=== PATIENT | male | born 1950 | race Caucasian/White ===

== ENCOUNTER 2018-01-27 09:43 | Inpatient (IN) | payer MEDICARE, OTHER ==
--- NOTE | 2018-01-27 10:07 | ED ---
General Adult HPI - General Chief complaint: Weakness Stated complaint: Weakness Time Seen by Provider: 01/27/18 09:45 Source: patient, EMS, RN notes reviewed Mode of arrival: EMS Limitations: no limitations - History of Present Illness Initial comments: This is a 67-year-old male who presents emergency Department complaining of becoming short of breath with any kind of exertion. Patient states his been ongoing for about 2 weeks is gotten progressively worse. Patient states he is also noticed significant edema in both of his legs but much more in the right leg than the left. Patient denies any calf pain or tenderness. Patient states she's had no heart history. Patient states he is a daily drinker. Patient denies any chest pain pressure or palpitations. Patient denies any abdominal pain patient denies nausea vomiting diarrhea. Patient denies lightheadedness dizziness or near syncopal episode. Patient denies headache patient denies numbness weakness. Patient denies any recent fever chills or cough. - Related Data Home Medications Medication Instructions Recorded Confirmed Tacrolimus [Prograf] 1 mg PO BID 11/15/14 01/27/18 amLODIPine [Norvasc] 5 mg PO BID 11/15/14 01/27/18 ALPRAZolam [Xanax] 0.5 mg PO TID PRN 01/27/18 01/27/18 Cyanocobalamin (Vitamin B-12) 1,000 mcg PO DAILY 01/27/18 01/27/18 [Vitamin B-12] Dexamethasone 1 mg PO BID 01/27/18 01/27/18 Enalapril [Vasotec] 10 mg PO BID 01/27/18 01/27/18 Ferrous Sulfate [Feosol] 325 mg PO DAILY 01/27/18 01/27/18 Folic Acid(Unknown Dose) 1 tab PO DAILY 01/27/18 01/27/18 HYDROcodone/APAP 7.5-325MG [[place] 1 tab PO QID 01/27/18 01/27/18 7.5-325] Metoprolol Tartrate [Lopressor] 25 mg PO BID 01/27/18 01/27/18 Multivitamins, Thera [Multivitamin 1 tab PO DAILY 01/27/18 01/27/18 (formulary)] Mycophenolate Sodium [Mycophenolic 360 mg PO BID 01/27/18 01/27/18 Acid] Oxybutynin Chloride [Ditropan] 2.5 mg PO BID 01/27/18 01/27/18 Allergies Allergy/AdvReac Type Severity Reaction Status Date / Time No Known Allergies Allergy Verified 01/27/18 10:48 Review of Systems ROS Statement: Those systems with pertinent positive or pertinent negative responses have been documented in the HPI. ROS Other: All systems not noted in ROS Statement are negative. Past Medical History Past Medical History: Hearing Disorder / Deafness, Hypertension, Renal Disease, Skin Disorder Additional Past Medical History / Comment(s): HX OF RENAL FAILURE, ON PERITONEAL DIALYSIS [id number]; HAD RENAL TRANSPLANT 2004; WEARS HEARING AIDE BILATERALLY; HX OF RENAL DISEASE PRIOR TO TRANSPLANT; MILD PSORIASIS ARMS, LEGS AND BACK. SICNE CHEMO THE PSORIAIS HAS CLEARED History of Any Multi-Drug Resistant Organisms: None Reported Past Surgical History: Appendectomy, Joint Replacement, Tonsillectomy Additional Past Surgical History / Comment(s): CHEMO AND RADIATION FOR TONGUE. PEG TUBE PLACED 1 YR AGO. HAD LEFT THORACOTOMY WITH UPPER LOBECTOMY 2013. BILATERAL HIP REPLACEMENT Past Psychological History: Anxiety, Depression Smoking Status: Former smoker Past Alcohol Use History: Daily Past Drug Use History: None Reported - Past Family History Father Family Medical History: Coronary Artery Disease (CAD), Renal Disease Mother Family Medical History: Coronary Artery Disease (CAD) General Exam - General Exam Comments Initial Comments: GENERAL: Patient is well-developed and well-nourished. Patient is nontoxic and well- hydrated and is in mild distress. ENT: Neck is soft and supple. No significant lymphadenopathy is noted. Oropharynx is clear. Moist mucous membranes. Neck has full range of motion without eliciting any pain. EYES: The sclera were anicteric and conjunctiva were pink and moist. Extraocular movements were intact and pupils were equal round and reactive to light. Eyelids were unremarkable. PULMONARY: Unlabored respirations. Good breath sounds bilaterally. No audible rales rhonchi or wheezing was noted. CARDIOVASCULAR: Patient has no irregular heart rate at 110 beats a minute ABDOMEN: Soft and nontender with normal bowel sounds. No palpable organomegaly was noted. There is no palpable pulsatile mass. SKIN: Skin is clear with no lesions or rashes and otherwise unremarkable. NEUROLOGIC: Patient is alert and oriented x3. Cranial nerves II through XII are grossly intact. Motor and sensory are also intact. Normal speech, volume and content. Symmetrical smile. MUSCULOSKELETAL: Normal extremities with adequate strength and full range of motion. 3+ edema on the right and 2+ on the left LYMPHATICS: No significant lymphadenopathy is noted PSYCHIATRIC: Normal psychiatric evaluation. Limitations: no limitations Course Vital Signs 01/27/18 01/27/18 01/27/18 09:46 09:59 11:48 Temperature 97.6 F Pulse Rate 88 90 Pulse Rate [ 92 [place] ] Respiratory 20 20 Rate Blood Pressure 165/120 159/110 O2 Sat by Pulse 97 94 L 96 Oximetry 01/27/18 13:01 Temperature 97.1 F L Pulse Rate 100 Pulse Rate [ [place] ] Respiratory 16 Rate Blood Pressure 131/89 O2 Sat by Pulse 99 Oximetry Medical Decision Making - Medical Decision Making EKG shows atrial fibrillation at 92 bpm QRS is 90 QT interval 358 QTC is 442. Patient's EKG shows no ST segment elevation or depression or T wave abnormalities are noted. Chest x-ray shows no acute abnormality. I started the patient heparin for the new onset A. fib. I spoke with Dr. Polk he agreed to admit the patient admitted the patient I wrote admitting orders. - Lab Data Result diagrams: 01/27/18 10:00 01/28/18 03:30 Lab Results 01/27/18 01/27/18 01/27/18 Range/Units 10:00 10:00 10:00 WBC 7.0 (3.8-10.6) k/uL RBC 4.51 (4.30-5.90) m/uL Hgb 14.1 (13.0-17.5) gm/dL Hct 42.8 (39.0-53.0) % MCV 94.9 (80.0-100.0) fL MCH 31.3 (25.0-35.0) pg MCHC 33.0 (31.0-37.0) g/dL RDW 14.9 (11.5-15.5) % Plt Count 150 (150-450) k/uL Neutrophils % 94 % Lymphocytes % 2 % Monocytes % 4 % Eosinophils % 0 % Basophils % 0 % Neutrophils # 6.5 (1.3-7.7) k/uL Lymphocytes # 0.2 L (1.0-4.8) k/uL Monocytes # 0.3 (0-1.0) k/uL Eosinophils # 0.0 (0-0.7) k/uL Basophils # 0.0 (0-0.2) k/uL PT (9.0-12.0) sec INR (<1.2) APTT (22.0-30.0) sec D-Dimer (<0.60) mg/L FEU Sodium 138 (137-145) mmol/L Potassium 3.7 (3.5-5.1) mmol/L Chloride 99 (98-107) mmol/L Carbon Dioxide 29 (22-30) mmol/L Anion Gap 10 mmol/L BUN 25 H (9-20) mg/dL Creatinine 0.85 (0.66-1.25) mg/dL Est GFR (CKD-EPI)AfAm >90 (>60 ml/min/1.73 sqM) Est GFR (CKD-EPI)NonAf >90 (>60 ml/min/1.73 sqM) Glucose 84 (74-99) mg/dL Calcium 8.9 (8.4-10.2) mg/dL Magnesium 1.7 (1.6-2.3) mg/dL Total Bilirubin 0.6 (0.2-1.3) mg/dL AST 60 H (17-59) U/L ALT 72 (21-72) U/L Alkaline Phosphatase 95 (38-126) U/L Total Creatine Kinase 78 (55-170) U/L CK-MB (CK-2) 4.0 H* (0.0-2.4) ng/mL CK-MB (CK-2) Rel Index 5.1 Troponin I 0.048 H* (0.000-0.034) ng/mL NT-Pro-B Natriuret Pep pg/mL Total Protein 5.2 L (6.3-8.2) g/dL Albumin 3.2 L (3.5-5.0) g/dL TSH (0.465-4.680) mIU/L Serum Alcohol <10 mg/dL 01/27/18 01/27/18 01/27/18 Range/Units 10:00 10:00 10:06 WBC (3.8-10.6) k/uL RBC (4.30-5.90) m/uL Hgb (13.0-17.5) gm/dL Hct (39.0-53.0) % MCV (80.0-100.0) fL MCH (25.0-35.0) pg MCHC (31.0-37.0) g/dL RDW (11.5-15.5) % Plt Count (150-450) k/uL Neutrophils % % Lymphocytes % % Monocytes % % Eosinophils % % Basophils % % Neutrophils # (1.3-7.7) k/uL Lymphocytes # (1.0-4.8) k/uL Monocytes # (0-1.0) k/uL Eosinophils # (0-0.7) k/uL Basophils # (0-0.2) k/uL PT 9.7 (9.0-12.0) sec INR 1.0 (<1.2) APTT 23.4 (22.0-30.0) sec D-Dimer 0.54 (<0.60) mg/L FEU Sodium (137-145) mmol/L Potassium (3.5-5.1) mmol/L Chloride (98-107) mmol/L Carbon Dioxide (22-30) mmol/L Anion Gap mmol/L BUN (9-20) mg/dL Creatinine (0.66-1.25) mg/dL Est GFR (CKD-EPI)AfAm (>60 ml/min/1.73 sqM) Est GFR (CKD-EPI)NonAf (>60 ml/min/1.73 sqM) Glucose (74-99) mg/dL Calcium (8.4-10.2) mg/dL Magnesium (1.6-2.3) mg/dL Total Bilirubin (0.2-1.3) mg/dL AST (17-59) U/L ALT (21-72) U/L Alkaline Phosphatase (38-126) U/L Total Creatine Kinase (55-170) U/L CK-MB (CK-2) (0.0-2.4) ng/mL CK-MB (CK-2) Rel Index Troponin I (0.000-0.034) ng/mL NT-Pro-B Natriuret Pep 3480 pg/mL Total Protein (6.3-8.2) g/dL Albumin (3.5-5.0) g/dL TSH 0.997 (0.465-4.680) mIU/L Serum Alcohol mg/dL Disposition Clinical Impression: New onset a-fib, Dyspnea, Pedal edema Disposition: ADMITTED IP TO THIS HOSP Is patient prescribed a controlled substance at d/c from ED?: No Time of Disposition: 12:06
[2018-01-27 10:23] LABS: Basophils % (A) 0 %; Eosinophils % (A) 0 %; HCT 42.8 % (39.0-53.0); HGB 14.1 gm/dL (13.0-17.5); Lymphocytes # (A) 0.2 k/uL (1.0-4.8); Lymphocytes % (A) 2 %; MCH 31.3 pg (25.0-35.0); MCV 94.9 fL (80.0-100.0); Mean Platelet Volume 6.8; Monocytes # (A) 0.3 k/uL (0-1.0); Monocytes % (A) 4 %; Neutrophils # (A) 6.5 k/uL (1.3-7.7); Neutrophils % (A) 94 %; Platelet Count 150 k/uL (150-450); RBC 4.51 m/uL (4.30-5.90); RDW 14.9 % (11.5-15.5)
[2018-01-27 10:34] LABS: ALT 72 U/L (21-72); AST 60 U/L (17-59); Albumin 3.2 g/dL (3.5-5.0); Alcohol <10 mg/dL; Alkaline Phosphatase 95 U/L (38-126); Anion Gap 10 mmol/L; Blood Urea Nitrogen 25 mg/dL (9-20); Calcium 8.9 mg/dL (8.4-10.2); Carbon Dioxide 29 mmol/L (22-30); Chloride 99 mmol/L (98-107); Glucose 84 mg/dL (74-99); Magnesium 1.7 mg/dL (1.6-2.3); Potassium 3.7 mmol/L (3.5-5.1); Sodium 138 mmol/L (137-145); Total Bilirubin 0.6 mg/dL (0.2-1.3); Total Protein 5.2 g/dL (6.3-8.2)
--- NOTE | 2018-01-27 10:36 | XR ---
EXAMINATION TYPE: XR chest 2V DATE OF EXAM: 01/27/2018 COMPARISON: NONE HISTORY: Shortness of breath TECHNIQUE: Frontal and lateral views of the chest are obtained. FINDINGS: Scattered senescent parenchymal changes noted. Left mid lung zone density the site of prior surgical intervention may be postoperative in nature. Un derlying atelectasis or infiltrate is difficult to exclude. Correlate clinically. Heart size is stable. Mediastinal structures are stable and grossly unremarkable. No evidence for hilar prominence. Degenerative changes dorsal spine. IMPRESSION: 1. Left mid lung zone density the site of prior surgical intervention may be postoperative in nature. Underlying atelectasis or infiltrate is difficult to exclude. Correlate clinically.
[2018-01-27 10:38] LABS: D-Dimer 0.54 mg/L FEU (<0.60); Partial Thromboplastin Time 23.4 sec (22.0-30.0); Prothrombin Time 9.7 sec (9.0-12.0)
[2018-01-27 11:06] LABS: Troponin I 0.048 ng/mL (0.000-0.034)
[2018-01-27] MEDS ORDERED: HEPARIN SODIUM,PORCINE 5,000 UNIT/ML 1 ML VIAL IV ONE (12:02)
[2018-01-27] MEDS ORDERED: NITROGLYCERIN SL TABS 0.4 MG TAB SUBLINGUAL PRN (12:06)
[2018-01-27] MEDS ORDERED: HEPARIN SOD,PORK IN 0.45% NACL 25,000 UNIT in 0.45% NACL 1 500ML.BAG IV SCH (12:15)
--- NOTE | 2018-01-27 12:37 | US ---
EXAMINATION TYPE: US venous doppler duplex LE RT DATE OF EXAM: 01/27/2018 12:03 PM COMPARISON: NONE CLINICAL HISTORY: Pain. Right leg pain SIDE PERFORMED: Right TECHNIQUE: The lower extremity deep venous system is examined utilizing real time linear array sonog conchita with graded compression, doppler sonography and color-flow sonography. VESSELS IMAGED: External Iliac Vein (EIV) Common Femoral Vein Deep Femoral Vein Greater Saphenous Vein * Femoral Vein Popliteal Vein Small Saphenous Vein * Proximal Calf Veins (* superficial vessels) Right Leg: Appears negative for DVT Grayscale, color doppler, spectral doppler imaging performed of the deep veins of the lower extremiti es. There is normal flow, compressibility, vascular waveforms. IMPRESSION: No evident deep venous thrombosis at or above the right knee.
[2018-01-27] MEDS: DILTIAZEM 50 MG in SODIUM CHLORIDE 0.9% 40 ML IV SCH (13:40)
[2018-01-27] MEDS ORDERED: ALPRAZolam 0.5 MG TAB PO PRN (14:50)
[2018-01-27] MEDS: METOPROLOL TARTRATE 25 MG TAB PO SCH ×2 (15:51→20:52)
[2018-01-27] MEDS: FUROSEMIDE 10 MG/ML 2 ML VIAL IV SCH ×2 (15:51→20:50)
--- NOTE | 2018-01-27 16:25 | CONS ---
CONSULTATION ATTENDING PHYSICIAN: Dr. 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 Casper's office for evaluation of dyspnea, weakness in the lower extremities and edema. He has a known history of renal transplant, history of left upper lobe resection for cancer and radiation therapy for tongue cancer in the past in 2013 that has been stable for the last 2 months or so. He has been complaining of progressive weakness in his legs with any physical activity and progressive fatigue. He has some dyspnea, but no chest pain. He has noted progressing of peripheral edema. He denies any dizziness or palpitation. No syncope. He has been seen by Dr. Allred in the past and his workup according to him was unremarkable. He has no clear PND or orthopnea. In the emergency room, he was noted to be in atrial fibrillation of unknown duration. His coronary risk factors are positive for hypertension. He is nondiabetic. He has stopped smoking in the past. He drinks about 2-3 martini a day. His medication at home include enalapril 10 mg twice a day, iron, metoprolol tartrate 25 mg twice a day. Prograf 1 mg twice a day. Amlodipine 5 mg twice a day. Dexamethasone 1 mg twice a day. Ditropan. [place]. REVIEW OF SYSTEMS: RESPIRATORY SYSTEM: He has no recent wheezing or cough. He has dyspnea on exertion. GI SYSTEM: No recent GI bleeding. No peptic ulcer disease. He has lost weight after his surgery and had a feeding tube that was removed recently and his weight has been stable. SYSTEM: No dysuria, hematuria. NERVOUS SYSTEM: No history of stroke or seizure. PHYSICAL EXAMINATION: A 67-year-old male, alert, oriented, in no apparent distress. Thin body habitus. Blood pressure 131/80 with a heart in 90s. HEAD: Normocephalic. EYES: Sclerae anicteric. NECK: No bruit. LUNGS: No wheezes or rales. HEART: Irregular regular S1, S2. No S3 with systolic murmur. No diastolic murmur. No rub. ABDOMEN: Soft, nontender. EXTREMITIES: +2 edema on the right side, +1 on the left side with 2+ distal pulses. LAB DATA: Lab data revealed a BUN and creatinine 25 and 0.85, potassium 3.7, hemoglobin 14.1. Troponin 0.048. NT proBNP of 3480. EKG revealed atrial fibrillation with a QS in V1 to V3. Cannot exclude anterior wall myocardial infarction. Venous duplex scan of the lower extremities was negative for DVT. Chest x-ray showed no acute infiltrate with a mid lung density on the left side related to surgical intervention. IMPRESSION: 1. Atrial fibrillation of unknown duration. 2. Symptoms of progressive leg weakness and fatigue with peripheral edema with elevation NT proBNP could represent congestive heart failure. On physical examination, I do not hear any rales at this time in the lungs. 3. History of hypertension. 4. History of lung cancer, stable. 5. History of renal transplant, stable. RECOMMENDATION: From the cardiac standpoint, I will start him on IV Lasix. I will also increase the dose of his beta rigoberto. I will obtain echocardiogram with Doppler. The mild elevation of the troponin is of unclear etiology. I do not see clear evidence to suggest acute coronary syndrome. Depending on the results of testing, further recommendation will be made. Thank you for this consult. We will follow with you. MMODL / IJN: [id number] /
[2018-01-27 17:31] LABS: Creatine Kinase MB 3.6 ng/mL (0.0-2.4); Troponin I 0.049 ng/mL (0.000-0.034)
[2018-01-27] MEDS ORDERED: HYDROcodone/APAP 7.5-325MG 1 EACH TAB PO SCH (18:00)
[2018-01-27] MEDS: MYCOPHENOLATE SODIUM DR 180 MG TABLET.DR PO SCH (20:50)
[2018-01-27] MEDS: OXYBUTYNIN CHLORIDE 5 MG TAB PO SCH (20:51)
[2018-01-27] MEDS: TACROLIMUS 1 MG CAP PO SCH (20:52)
[2018-01-27] MEDS: HYDROcodone/APAP 7.5-325MG 1 EACH TAB PO PRN (21:03)
[2018-01-27 22:36] LABS: Creatine Kinase MB 3.2 ng/mL (0.0-2.4); Troponin I 0.059 ng/mL (0.000-0.034)
[2018-01-28 04:36] LABS: Calcium 8.3 mg/dL (8.4-10.2)
[2018-01-28 04:42] LABS: Potassium 2.7 mmol/L (3.5-5.1)
[2018-01-28] MEDS ORDERED: Potassium Replacement Protocol 1 EACH MISC MISCELLANE PRN (04:55)
[2018-01-28] MEDS: POTASSIUM CHLORIDE ER 20 MEQ TAB.ER PO SCH ×3 (06:06→08:26)
[2018-01-28] MEDS: PANTOPRAZOLE 40 MG TABLET PO SCH (06:06)
--- NOTE | 2018-01-28 07:54 | ECHOF ---
Referral Reason:afib MEASUREMENTS -------- HEIGHT: 180.3 cm WEIGHT: 63.5 kg BP: 131/89 RVIDd: 2.8 cm (< 3.3) IVSd: 1.0 cm (0.6 - 1.1) LVIDd: 3.9 cm (3.9 - 5.3) LVPWd: 1.0 cm (0.6 - 1.1) IVSs: 1.2 cm LVIDs: 3.5 cm LVPWs: 1.2 cm LAESV Index (A-L): 70.42 ml/m Ao Diam: 3.1 cm (2.0 - 3.7) AV Cusp: 1.5 cm (1.5 - 2.6) LA Diam: 3.7 cm (2.7 - 3.8) MV E Gregorio: 0.77 m/s MV DecT: 218 ms MV A Gregorio: 0.01 m/s MV E/A Ratio: 65.18 RAP: 15.00 mmHg RVSP: 33.05 mmHg FINDINGS -------- Atrial fibrillation. This was a technically good study. The left ventricular size is normal. Left ventricular wall thickness is normal. Overall left vent ricular systolic function is normal with, an EF between 55 - 60 %. The right ventricle is normal in size and function. LA is severely dilated >40 ml/m2 RA appears enlarged. Aortic valve is trileaflet and is mildly thickened. There is mild aortic regurgitation. There is no evidence of aortic stenosis. The mitral valve leaflets are mildly thickened. [id number] mitral regurgitation is present. Trace tricuspid regurgitation present. There is borderline pulmonary hypertension. The right vent ricular systolic pressure, as measured by Doppler, is 33.05mmHg. The pulmonic valve was not well visualized. The aortic root size is normal. The inferior vena cava is dilated with no significant inspiratory collapse which is consistent estima alexis right atrial pressure of >20 mmHg. There is a small, generalized pericardial effusion present. CONCLUSIONS -------- 1. Atrial fibrillation. 2. This was a technically good study. 3. The left ventricular size is normal. 4. Left ventricular wall thickness is normal. 5. Overall left ventricular systolic function is normal with, an EF between 55 - 60 %. 6. LA is severely dilated >40 ml/m2 7. RA appears enlarged. 8. Aortic valve is trileaflet and is mildly thickened. 9. There is mild aortic regurgitation. 10. The mitral valve leaflets are mildly thickened. 11. Zrsk-hu-tbmrrjqd mitral regurgitation is present. 12. Trace tricuspid regurgitation present. 13. There is borderline pulmonary hypertension. 14. The right ventricular systolic pressure, as measured by Doppler, is 33.05mmHg. 15. The pulmonic valve was not well visualized. 16. The aortic root size is normal. 17. The inferior vena cava is dilated with no significant inspiratory collapse which is consistent es timated right atrial pressure of >20 mmHg. 18. There is a small, generalized pericardial effusion present. LAUNCH OPERATOR: Addison Ewing RDCS
[2018-01-28] MEDS: FERROUS SULFATE 325 MG TAB PO SCH (08:27)
[2018-01-28] MEDS: ASPIRIN 81 MG PO SCH (08:27)
[2018-01-28] MEDS: FUROSEMIDE 10 MG/ML 2 ML VIAL IV SCH ×2 (08:27→21:05)
[2018-01-28] MEDS: FOLIC ACID 1 MG TAB PO SCH (08:27)
[2018-01-28] MEDS: MULTIVITAMINS, THERA 1 EACH TAB PO SCH (08:27)
[2018-01-28] MEDS: LISINOPRIL 20 MG TAB PO SCH (08:28)
[2018-01-28] MEDS: OXYBUTYNIN CHLORIDE 5 MG TAB PO SCH ×2 (08:28→21:05)
[2018-01-28] MEDS: METOPROLOL TARTRATE 25 MG TAB PO SCH (08:28)
[2018-01-28] MEDS: TACROLIMUS 1 MG CAP PO SCH ×2 (08:29→21:05)
[2018-01-28] MEDS: MYCOPHENOLATE SODIUM DR 180 MG TABLET.DR PO SCH ×2 (08:29→21:05)
[2018-01-28] MEDS ORDERED: ASPIRIN 325 MG TAB PO SCH (09:00)
[2018-01-28] MEDS: DILTIAZEM 50 MG in SODIUM CHLORIDE 0.9% 40 ML IV SCH (11:43)
[2018-01-28 11:48] LABS: Magnesium 1.5 mg/dL (1.6-2.3); Potassium 3.7 mmol/L (3.5-5.1)
--- NOTE | 2018-01-28 13:00 | P.NPCON ---
History of Present Illness - Reason for Consult chronic renal failure - History of Present Illness Reason for consultation: Renal transplant management History of present illness: Patient is a 67-year-old male seen in consultation for renal present management. 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 He received a donor allograft. He is currently maintained on Prograf 1 mg twice daily and mycophenolate 360 mg twice daily. Prior to renal transplant he was on peritoneal dialysis for one year. Patient presented to the hospital with generalized weakness and edema in his lower extremity is. Patient states his right lower extremity was more swollen than his left and there was concern for DVT. The ultrasound revealed no evidence of DVT. Echocardiogram revealed preserved ejection fraction and mild to moderate mitral regurgitation. He is currently maintained on Lasix 20 mg IV twice daily. Creatinine today is 1.08. Oral intake is good. Denies vomiting or diarrhea. Denies use of NSAIDs. His potassium was 2.7 today which was replaced and is up to 3.7. Denies history of diabetes mellitus. States he was diagnosed with tongue cancer in 2013 for which she underwent radiation. He required PEG tube feeding for about 2 years. He also underwent a left upper lobe lobectomy on 08/20/2014 secondary to lung cancer. Edema is improving. No hematuria or dysuria. No vomiting or diarrhea. Vital signs are stable. General: The patient appeared well nourished and normally developed. HEENT: Head exam is unremarkable. Neck is without jugular venous distension. LUNGS: Lungs are clear to auscultation and percussion. Breath sounds decreased. HEART: Rate and Rhythm are regular. First and second heart sounds normal. No murmurs, rubs or gallops. ABDOMEN: Abdominal exam reveals normal bowel sounds. Non-tender and non- distended. No evidence of peritonitis. EXTREMITITES: 1+ edema right lower extremity. Trace edema left lower extremity. Past Medical History Past Medical History: Hearing Disorder / Deafness, Hypertension, Renal Disease, Skin Disorder Additional Past Medical History / Comment(s): HX OF RENAL FAILURE, ON PERITONEAL DIALYSIS [id number]; HAD RENAL TRANSPLANT 2004; WEARS HEARING AIDE BILATERALLY; HX OF RENAL DISEASE PRIOR TO TRANSPLANT; MILD PSORIASIS ARMS, LEGS AND BACK. SICNE CHEMO THE PSORIAIS HAS CLEARED History of Any Multi-Drug Resistant Organisms: None Reported Past Surgical History: Appendectomy, Joint Replacement, Tonsillectomy Additional Past Surgical History / Comment(s): CHEMO AND RADIATION FOR TONGUE. PEG TUBE PLACED 1 YR AGO. HAD LEFT THORACOTOMY WITH UPPER LOBECTOMY 2013. BILATERAL HIP REPLACEMENT Past Anesthesia/Blood Transfusion Reactions: No Reported Reaction Past Psychological History: Anxiety, Depression Smoking Status: Former smoker Past Alcohol Use History: Daily Past Drug Use History: None Reported - Past Family History Father Family Medical History: Coronary Artery Disease (CAD), Renal Disease Additional Family Medical History / Comment(s): Father at the age of 80yrs. Mother Family Medical History: Coronary Artery Disease (CAD) Additional Family Medical History / Comment(s): Mother at the age of 70yrs. Medications and Allergies Home Medications Medication Instructions Recorded Confirmed Type Tacrolimus [Prograf] 1 mg PO BID 11/15/14 01/27/18 History amLODIPine [Norvasc] 5 mg PO BID 11/15/14 01/27/18 History ALPRAZolam [Xanax] 0.5 mg PO TID PRN 01/27/18 01/27/18 History Cyanocobalamin (Vitamin B-12) 1,000 mcg PO DAILY 01/27/18 01/27/18 History [Vitamin B-12] Dexamethasone 1 mg PO BID 01/27/18 01/27/18 History Enalapril [Vasotec] 10 mg PO BID 01/27/18 01/27/18 History Ferrous Sulfate [Feosol] 325 mg PO DAILY 01/27/18 01/27/18 History Folic Acid(Unknown Dose) 1 tab PO DAILY 01/27/18 01/27/18 History HYDROcodone/APAP 7.5-325MG [[place] 1 tab PO QID 01/27/18 01/27/18 History 7.5-325] Metoprolol Tartrate [Lopressor] 25 mg PO BID 01/27/18 01/27/18 History Multivitamins, Thera [Multivitamin 1 tab PO DAILY 01/27/18 01/27/18 History (formulary)] Mycophenolate Sodium [Mycophenolic 360 mg PO BID 01/27/18 01/27/18 History Acid] Oxybutynin Chloride [Ditropan] 2.5 mg PO BID 01/27/18 01/27/18 History Allergies Allergy/AdvReac Type Severity Reaction Status Date / Time No Known Allergies Allergy Verified 01/27/18 10:48 Physical Exam Vitals: Vital Signs Temp Pulse Pulse Resp BP BP Pulse Ox 01/28/18 12:00 97.2 F L 80 18 125/72 97 01/28/18 08:00 97.1 F L 89 18 118/80 97 01/28/18 04:00 97.6 F 62 17 126/81 97 01/28/18 00:00 97.0 F L 90 18 124/79 95 01/27/18 20:00 97.2 F L 86 19 148/107 97 01/27/18 15:59 97.0 F L 107 H 18 149/93 96 01/27/18 13:45 96 18 140/83 97 01/27/18 13:01 97.1 F L 100 16 131/89 99 Intake and Output 01/27/18 01/28/18 01/28/18 22:59 06:59 14:59 Intake Total 493.27 168.59 476 Output Total 200 525 Balance 293.27 -356.41 476 Intake: Intake, IV Titration 128.27 168.59 Amount Diltiazem 50 mg In Sodium 20 Chloride 0.9% 40 ml @ 2. 5 MG/HR 2.5 mls/hr IV . Q20H [facility] Rx#:[id number] Heparin Sod,Pork in 0.45% 128.27 148.59 NaCl 25,000 unit In 0.45 % NaCl 1 500ml.bag @ 12 UNITS/KG/HR 15.24 mls/hr IV .Q24H [facility] Rx#: [id number] Oral 365 476 Output: Urine 200 525 Other: Voiding Method Urinal Urinal Urinal # Voids 1 # Bowel Movements 0 Weight 63 kg Results - Lab Results Most recent lab results Calcium 8.3 mg/dL (8.4-10.2) L 01/28/18 03:30 Magnesium 1.5 mg/dL (1.6-2.3) L 01/28/18 11:15 01/27/18 10:00 01/28/18 11:15 Assessment and Plan Plan: Assessment: #1. Status post donor renal allograft secondary to membranous nephropathy in March 2005 at [facility]. #2. Chronic kidney disease stage II with baseline creatinine near 0.8. #3. Mild acute allograft dysfunction mostly prerenal secondary to diuresis. Creatinine 1.08 today. #4. Hypokalemia secondary to diuresis. Hypomagnesemia also contributing factor. #5. Hypomagnesemia secondary to diuretics. #6. Atrial fibrillation with RVR. Maintained on heparin drip. Cardizem drip has been discontinued. Cardiology following. #7. Diastolic CHF with mild to moderate mitral regurgitation. Plan: Maintain Prograf 1 mg twice daily and Myfortic 360 mg twice daily. Replace magnesium. 2 g IV today. Status post potassium replacement. Check urinalysis. Continue Lasix 20 mg IV twice daily. Possibly change to oral diuretics tomorrow. Repeat electrolytes in the morning. Thank you for the consultation. I will continue to follow the patient with you during his hospital stay.
[2018-01-28 14:07] VITALS: BMI 19.3
--- NOTE | 2018-01-28 15:14 | PN ---
PROGRESS NOTE Mr. Meyer is a 67-year-old male who presented with symptoms of lower extremity weakness, lack of energy and had significant peripheral edema. He was noted to be in atrial fibrillation of unknown duration. He is feeling better today. His energy is better. His breathing is better. He denies any dizziness or palpitation. In the past, he had no evidence of obstructive coronary artery disease by cardiac catheterization. He had an echocardiogram that showed a preserved systolic function with mild to moderate mitral and trace tricuspid regurgitation. He continues to be on IV Lasix in addition to the 20 mg twice a day, IV Cardizem, heparin, lisinopril 40 mg daily, metoprolol tartrate 25 mg 3 times a day. PHYSICAL EXAMINATION: Blood pressure 125/70 with a heart in the 80s. LUNGS: Clear. HEART: Irregular regular, S1, S2. No S3 with a systolic murmur. ABDOMEN: Soft, nontender. EXTREMITIES: +2 edema on the right side, +1 on the left side, improved compared with yesterday. LAB DATA: BUN and creatinine 32 and 1.08. Potassium is 2.7 up to 3.7. IMPRESSION: 1. Atrial fibrillation of unknown duration. The rate is controlled at this time. 2. Progressive fatigue and peripheral edema with probable element of congestive heart failure on the basis of diastolic dysfunction. 3. Hypertension. 4. History of lung cancer, stable. 5. Renal transplant. RECOMMENDATION: From the cardiac standpoint, we will continue on the present therapy. I will continue IV diuretic for 24 hours. I will increase the dose of his beta rigoberto. We will stop the IV Cardizem. We will initiate anticoagulation and depending on his progress, further recommendation will be made. MMODL / IJN: [id number] /
[2018-01-28] MEDS: MAGNESIUM SULFATE-D5W PMX 1 GM in DEXTROSE/WATER 1 100ML.BAG IVPB SCH ×2 (15:28→17:23)
[2018-01-28] MEDS: APIXABAN 5 MG TAB PO SCH (15:29)
[2018-01-28] MEDS ORDERED: RIVAROXABAN 20 MG TAB PO SCH (17:30)
[2018-01-28] MEDS: METOPROLOL TARTRATE 50 MG TAB PO SCH (18:17)
[2018-01-28 20:09] LABS: Appearance,Urine Clear (Clear); Bacteria,Urine Many /hpf; Bilirubin,Urine Negative (Negative); Blood,Urine Small (Negative); Color,Urine Yellow; Glucose,Urine (UA) Negative (Negative); Ketones,Urine Negative (Negative); Leukocyte Esterase,Urine Small (Negative); Mucus,Urine Rare /hpf; Nitrite,Urine Positive (Negative); PH, Urine 6.5 (5.0-8.0); Protein,Urine 1+ (Negative); RBC,Urine 3 /hpf (0-5); Specific Gravity,Urine 1.015 (1.001-1.035); Urobilinogen,Urine <2.0 mg/dL (<2.0); WBC,Urine 18 /hpf (0-5)
[2018-01-28] MEDS ORDERED: APIXABAN 5 MG TAB PO SCH (21:00)
[2018-01-29] MEDS: APIXABAN 5 MG TAB PO SCH ×2 (04:37→17:56)
[2018-01-29] MEDS: PANTOPRAZOLE 40 MG TABLET PO SCH (06:55)
[2018-01-29 07:21] LABS: Blood Urea Nitrogen 27 mg/dL (9-20); Carbon Dioxide 34 mmol/L (22-30)
[2018-01-29 07:25] LABS: Anion Gap 8 mmol/L; Calcium 8.9 mg/dL (8.4-10.2); Chloride 98 mmol/L (98-107); Glucose 53 mg/dL (74-99); Sodium 140 mmol/L (137-145)
[2018-01-29] MEDS: METOPROLOL TARTRATE 50 MG TAB PO SCH ×2 (08:28→20:45)
[2018-01-29] MEDS: LISINOPRIL 20 MG TAB PO SCH (08:29)
[2018-01-29] MEDS: ASPIRIN 81 MG PO SCH (08:29)
[2018-01-29] MEDS: FOLIC ACID 1 MG TAB PO SCH (08:29)
[2018-01-29] MEDS: FERROUS SULFATE 325 MG TAB PO SCH (08:29)
[2018-01-29] MEDS: FUROSEMIDE 10 MG/ML 2 ML VIAL IV SCH (08:29)
[2018-01-29] MEDS: TACROLIMUS 1 MG CAP PO SCH ×2 (08:30→20:45)
[2018-01-29] MEDS: MYCOPHENOLATE SODIUM DR 180 MG TABLET.DR PO SCH ×2 (08:30→20:46)
[2018-01-29] MEDS: OXYBUTYNIN CHLORIDE 5 MG TAB PO SCH ×2 (08:30→20:46)
[2018-01-29] MEDS ORDERED: cefTRIAXone IN SWFI 1,000 MG/10 ML SYRINGE IVP STA (08:35)
[2018-01-29] MEDS ORDERED: FUROSEMIDE 10 MG/ML 4 ML VIAL IV STA (09:08)
--- NOTE | 2018-01-29 09:09 | P.PN ---
Subjective Patient is seen in follow-up for renal transplant management. Patient underwent donor renal allograft in March 2005 at [facility]. 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 Patient presented with atrial fibrillation and is currently maintained on Lopressor. Cardiology is following. GFR is near baseline with creatinine is 0.94 today. He complains of lower extremity edema. Currently maintained on Lasix 20 mg IV twice daily. No vomiting or diarrhea. Oral intake is good. He does have history of diastolic CHF with mild to moderate mitral regurgitation. Vital signs are stable. General: The patient appeared well nourished and normally developed. HEENT: Head exam is unremarkable. Neck is without jugular venous distension. LUNGS: Lungs are clear to auscultation and percussion. Breath sounds decreased. HEART: Rate and Rhythm are regular. First and second heart sounds normal. No murmurs, rubs or gallops. ABDOMEN: Abdominal exam reveals normal bowel sounds. Non-tender and non- distended. No evidence of peritonitis. EXTREMITITES: 2+ edema in the right lower extremity. 1+ edema in the left lower extremity. Objective - Vital Signs Vital signs: Vital Signs Temp 97.8 F 01/29/18 08:10 Pulse 160 H 01/29/18 08:10 Resp 20 01/29/18 08:10 BP 137/110 01/29/18 08:10 Pulse Ox 99 01/29/18 08:10 Intake & Output 01/28/18 01/29/18 01/29/18 18:59 06:59 18:59 Intake Total 948 200 Output Total 600 1050 Balance 348 -850 Weight 63 kg 63 kg Intake: Oral 948 200 Output: Urine 600 1050 Other: Voiding Method Urinal Toilet Urinal # Voids 1 - Labs CBC & Chem 7: 01/27/18 10:00 01/29/18 06:41 Labs: Abnormal Lab Results - Last 24 Hours (Table) 01/28/18 01/28/18 01/28/18 Range/Units 11:15 12:11 19:50 APTT 45.8 H (22.0-30.0) sec Carbon Dioxide (22-30) mmol/L BUN (9-20) mg/dL Glucose (74-99) mg/dL Magnesium 1.5 L (1.6-2.3) mg/dL Urine Protein 1+ H (Negative) Urine Blood Small H (Negative) Ur Leukocyte Esterase Small H (Negative) Urine WBC 18 H (0-5) /hpf Urine Bacteria Many H (None) /hpf Urine Mucus Rare H (None) /hpf 01/29/18 Range/Units 06:41 APTT (22.0-30.0) sec Carbon Dioxide 34 H (22-30) mmol/L BUN 27 H (9-20) mg/dL Glucose 53 L (74-99) mg/dL Magnesium (1.6-2.3) mg/dL Urine Protein (Negative) Urine Blood (Negative) Ur Leukocyte Esterase (Negative) Urine WBC (0-5) /hpf Urine Bacteria (None) /hpf Urine Mucus (None) /hpf Assessment and Plan Plan: Assessment: #1. Status post donor renal allograft secondary to membranous nephropathy in March 2005 at [facility]. #2. Chronic kidney disease stage II with baseline creatinine near 0.8. #3. Mild acute allograft dysfunction mostly prerenal secondary to diuresis. Improved. Creatinine 0.94 today. #4. Hypokalemia secondary to diuresis. Hypomagnesemia also contributing factor. Improved post replacement. #5. Hypomagnesemia secondary to diuretics. Improved post replacement. #6. Atrial fibrillation with RVR. Maintain on Lopressor. Cardiology following. #7. Diastolic CHF with mild to moderate mitral regurgitation. #8. Volume overload. Plan: Maintain Prograf 1 mg twice daily and Myfortic 360 mg twice daily. Maintain Lasix 20 mg IV twice daily for now. I will give him an additional dose of Lasix 40 mg IV once today. Low-salt diet. Repeat electrolytes in the morning.
--- NOTE | 2018-01-29 12:18 | PN ---
PROGRESS NOTE Mr. Meyer is a 67-year-old male who presented with symptoms of progressive dyspnea and was found to be in atrial fibrillation and had findings consistent with peripheral edema. He is complaining of some discomfort in the right lower extremity. Otherwise he denies any chest pain. He feels better overall. He denies any dizziness or palpitation. He denies any nausea. His left ventricular systolic function revealed a preserved systolic function with mild to moderate mitral and trace tricuspid regurgitation. He continues to be at this time on Eliquis 5 mg twice a day, aspirin 81 mg daily, furosemide 20 mg IV every 12 hours, lisinopril 40 mg daily, metoprolol tartrate 50 mg twice a day and Prograf. PHYSICAL EXAMINATION: Blood pressure 125/90 with a heart rate in the 100s. LUNGS: Clear. HEART: Irregular irregular. S1, S2. No S3, with systolic murmur. ABDOMEN: Soft, nontender. EXTREMITIES: Plus 2 edema on the right side. Plus 1 edema on the left side. LAB DATA: BUN and creatinine of 27 and 0.9. Potassium 4.0. IMPRESSION: 1. Atrial fibrillation, newly diagnosed, with rapid ventricular response at times. 2. Peripheral edema. 3. Status post kidney transplant. 4. History of lung cancer. RECOMMENDATION: I will stop his aspirin. I will increase his diuretic for the next 24 hours. I will add Cardizem to his regimen to optimize his heart rate control. Depending on his progress, further recommendations will be made. MMODL / IJN: [id number] /
[2018-01-29] MEDS: DILTIAZEM ORAL 30 MG TAB PO SCH ×3 (12:40→22:12)
[2018-01-29] MEDS: FUROSEMIDE 10 MG/ML 4 ML VIAL IV SCH ×2 (12:40→20:45)
[2018-01-29] MEDS: MULTIVITAMINS, THERA 1 EACH TAB PO SCH (12:40)
--- NOTE | 2018-01-29 12:58 | P.HPIM ---
History of Present Illness H&P Date: 01/29/18 Chief Complaint: leg swelling and fatigue This is a pleasant 67-year-old male, well-known to my partner. He began experiencing increased fatigue and shortness of breath. He was seen in the office briefly by my partner, called EMS, concerned about a pulmonary embolism. Emergency room he was found to be in atrial fibrillation with rapid ventricular response. He is admitted and consultations were obtained from cardiology, and nephrology. He also has a history of kidney transplant 2004. History of lung carcinoma with left upper lobe resection and of tongue carcinoma with radiation therapy in 2013. He is feeling better now. He continues to complain of swelling noted to the right greater than left leg. He also indicated that he was having pain in the right foot, affecting his ability to walk. He denies any chest pains, pressures, nausea, vomiting, diarrhea, or constipation. Review of Systems All systems: negative Past Medical History Past Medical History: Hearing Disorder / Deafness, Hypertension, Renal Disease, Skin Disorder Additional Past Medical History / Comment(s): HX OF RENAL FAILURE, ON PERITONEAL DIALYSIS [id number]; HAD RENAL TRANSPLANT 2004; WEARS HEARING AIDE BILATERALLY; HX OF RENAL DISEASE PRIOR TO TRANSPLANT; MILD PSORIASIS ARMS, LEGS AND BACK. SICNE CHEMO THE PSORIAIS HAS CLEARED History of Any Multi-Drug Resistant Organisms: None Reported Past Surgical History: Appendectomy, Joint Replacement, Tonsillectomy Additional Past Surgical History / Comment(s): CHEMO AND RADIATION FOR TONGUE. PEG TUBE PLACED 1 YR AGO. HAD LEFT THORACOTOMY WITH UPPER LOBECTOMY 2013. BILATERAL HIP REPLACEMENT Past Anesthesia/Blood Transfusion Reactions: No Reported Reaction Past Psychological History: Anxiety, Depression Smoking Status: Former smoker Past Alcohol Use History: Daily Past Drug Use History: None Reported - Past Family History Father Family Medical History: Coronary Artery Disease (CAD), Renal Disease Additional Family Medical History / Comment(s): Father at the age of 80yrs. Mother Family Medical History: Coronary Artery Disease (CAD) Additional Family Medical History / Comment(s): Mother at the age of 70yrs. Medications and Allergies Home Medications Medication Instructions Recorded Confirmed Type Tacrolimus [Prograf] 1 mg PO BID 11/15/14 01/27/18 History amLODIPine [Norvasc] 5 mg PO BID 11/15/14 01/27/18 History ALPRAZolam [Xanax] 0.5 mg PO TID PRN 01/27/18 01/27/18 History Cyanocobalamin (Vitamin B-12) 1,000 mcg PO DAILY 01/27/18 01/27/18 History [Vitamin B-12] Dexamethasone 1 mg PO BID 01/27/18 01/27/18 History Enalapril [Vasotec] 10 mg PO BID 01/27/18 01/27/18 History Ferrous Sulfate [Feosol] 325 mg PO DAILY 01/27/18 01/27/18 History Folic Acid(Unknown Dose) 1 tab PO DAILY 01/27/18 01/27/18 History HYDROcodone/APAP 7.5-325MG [[place] 1 tab PO QID 01/27/18 01/27/18 History 7.5-325] Metoprolol Tartrate [Lopressor] 25 mg PO BID 01/27/18 01/27/18 History Multivitamins, Thera [Multivitamin 1 tab PO DAILY 01/27/18 01/27/18 History (formulary)] Mycophenolate Sodium [Mycophenolic 360 mg PO BID 01/27/18 01/27/18 History Acid] Oxybutynin Chloride [Ditropan] 2.5 mg PO BID 01/27/18 01/27/18 History Allergies Allergy/AdvReac Type Severity Reaction Status Date / Time No Known Allergies Allergy Verified 01/27/18 10:48 Physical Exam Vitals: Vital Signs Temp Pulse Resp BP BP Pulse Ox 01/29/18 11:30 97.5 F L 114 H 16 125/90 98 01/29/18 08:10 97.8 F 160 H 20 137/110 99 01/29/18 04:00 96.5 F L 97 20 127/87 97 01/29/18 00:00 97.2 F L 72 18 122/86 99 01/28/18 20:00 97.1 F L 99 18 138/87 99 01/28/18 16:00 97.5 F L 84 18 124/86 99 Intake and Output 01/28/18 01/29/18 01/29/18 22:59 06:59 14:59 Intake Total 236 200 200 Output Total 150 900 450 Balance 86 -700 -250 Intake: Oral 236 200 200 Output: Urine 150 900 450 Other: Voiding Method Urinal Toilet Toilet Urinal Urinal # Voids 1 1 Weight 63 kg GENERAL: Well-appearing, thin and in no acute distress. He looks older than his stated age of 67. HEAD: Atraumatic, normocephalic. EYES: Pupils equal round and reactive to light, extraocular movements intact, sclera anicteric, conjunctiva are normal. ENT:nares patent, oropharynx clear without exudates. Moist mucous membranes. NECK: Normal range of motion, supple without lymphadenopathy or JVD, no thyromegaly LUNGS: Breath sounds clear to auscultation bilaterally and equal. No wheezes rales or rhonchi. HEART: Regular rate and rhythm without murmurs, rubs or gallops.S1S2 Normal ABDOMEN: Soft, nontender, normoactive bowel sounds. No guarding, no rebound. No masses appreciated. EXTREMITIES: Normal range of motion, No clubbing or cyanosis. There is +2 edema to the right lower extremity extending up to the mid anterior pretibial. +1 on the left leg. There is no compression hose or other devices in place. No erythema or ecchymosis noted. NEUROLOGICAL: Cranial nerves II through XII grossly intact. Normal speech, normal gait. PSYCH: Normal mood, normal affect. SKIN: Warm, Dry, normal turgor, no rashes or lesions noted. Results CBC & Chem 7: 01/27/18 10:00 01/29/18 06:41 Labs: Abnormal Lab Results - Last 24 Hours (Table) 01/28/18 01/28/18 01/29/18 Range/Units 12:11 19:50 06:41 APTT 45.8 H (22.0-30.0) sec Carbon Dioxide 34 H (22-30) mmol/L BUN 27 H (9-20) mg/dL Glucose 53 L (74-99) mg/dL Urine Protein 1+ H (Negative) Urine Blood Small H (Negative) Ur Leukocyte Esterase Small H (Negative) Urine WBC 18 H (0-5) /hpf Urine Bacteria Many H (None) /hpf Urine Mucus Rare H (None) /hpf Chest x-ray: report reviewed Thrombosis Risk Factor Assmnt - DVT/VTE Prophylaxis DVT/VTE Prophylaxis: Pharmacologic Prophylaxis ordered - Choose All That Apply Any of the Below Risk Factors Present?: Yes Each Factor Represents 1 point: Swollen legs (current) Other Risk Factors: Yes Each Risk Factor Represents 2 Points: Age 61-74 years, Malignancy Other congenital or acquired thrombophilia - If yes, enter type in comment: No Thrombosis Risk Factor Assessment Total Risk Factor Score: 5 Thrombosis Risk Factor Assessment Level: High Risk Assessment and Plan Plan: New Onset atrial fibrillation with RVR: Her allergies on the case. He is on anticoagulation of Elequis. Cardizem for rate control along with lisinopril metoprolol and furosemide Right foot pain affecting his ability to ambulate: Obtain an x-ray is Ravin wrap for edema control both legs. Bilateral lower extremity edema greater in the right foot: as above Acute Diastolic Congestive heart failure mild to moderate mitral regurgitation: as above Weakness and fatigue from medical conditions above. h/o Kidney Transplant:He is on Prograf for rejection medications. Chronic renal failure stage II: Nephrology is following. Electrolyte abnormalities: Corrected for CVA/DVT prophylaxis with Elequis. GI prophylaxis with pepcid I will await cardiology' and nephrology recommendations. He will be reevaluated next 24 hours.
--- NOTE | 2018-01-29 15:14 | XR ---
EXAMINATION TYPE: XR foot complete RT DATE OF EXAM: 01/29/2018 CLINICAL HISTORY: Foot pain and swelling. TECHNIQUE: Frontal, lateral, and oblique images of the right foot are obtained. COMPARISON: None FINDINGS: There is no acute fracture/dislocation evident in the right foot. Some flexion in toes is present . The joint spaces in the right foot appear within normal limits. There is moderate diffuse s oft tissue swelling most prominent along dorsal surface. Vascular calcification is present. IMPRESSION: There is moderate diffuse soft tissue swelling noted.
[2018-01-29] MEDS: HYDROcodone/APAP 7.5-325MG 1 EACH TAB PO PRN (16:32)
[2018-01-30] MEDS: HYDROcodone/APAP 7.5-325MG 1 EACH TAB PO PRN (06:09)
[2018-01-30] MEDS: APIXABAN 5 MG TAB PO SCH (06:10)
[2018-01-30] MEDS: PANTOPRAZOLE 40 MG TABLET PO SCH (06:10)
[2018-01-30 06:28] LABS: Anion Gap 8 mmol/L; Blood Urea Nitrogen 30 mg/dL (9-20); Calcium 8.8 mg/dL (8.4-10.2); Carbon Dioxide 36 mmol/L (22-30); Chloride 95 mmol/L (98-107); Glucose 72 mg/dL (74-99); Potassium 3.5 mmol/L (3.5-5.1); Sodium 139 mmol/L (137-145)
[2018-01-30] MEDS ORDERED: POTASSIUM CHLORIDE ER 20 MEQ TAB.ER PO STA (07:51)
--- NOTE | 2018-01-30 08:16 | P.PN ---
Subjective Patient is seen in follow-up for renal transplant management. Patient underwent donor renal allograft in March 2005 at [facility]. 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 Patient presented with atrial fibrillation and is currently maintained on Lopressor. Cardiology is following. GFR is near baseline with creatinine at 1 today. Lower extremity edema is improving. Currently maintained on Lasix 40 mg IV twice daily. No vomiting or diarrhea. Oral intake is good. He does have history of diastolic CHF with mild to moderate mitral regurgitation. Vital signs are stable. General: The patient appeared well nourished and normally developed. HEENT: Head exam is unremarkable. Neck is without jugular venous distension. LUNGS: Lungs are clear to auscultation and percussion. Breath sounds decreased. HEART: Rate and Rhythm are regular. First and second heart sounds normal. No murmurs, rubs or gallops. ABDOMEN: Abdominal exam reveals normal bowel sounds. Non-tender and non- distended. No evidence of peritonitis. EXTREMITITES: 1+ edema. Objective - Vital Signs Vital signs: Vital Signs Temp 96.5 F L 01/30/18 04:00 Pulse 97 01/30/18 04:00 Resp 20 01/30/18 04:00 BP 127/87 01/30/18 04:00 Pulse Ox 97 01/30/18 04:00 Intake & Output 01/29/18 01/30/18 01/30/18 18:59 06:59 18:59 Intake Total 680 Output Total 1450 550 Balance -770 -550 Weight 61.5 kg Intake: Oral 680 Output: Urine 1450 550 Other: Voiding Method Urinal Urinal # Voids 1 2 - Labs CBC & Chem 7: 01/27/18 10:00 01/30/18 05:37 Labs: Abnormal Lab Results - Last 24 Hours (Table) 01/30/18 Range/Units 05:37 Chloride 95 L (98-107) mmol/L Carbon Dioxide 36 H (22-30) mmol/L BUN 30 H (9-20) mg/dL Glucose 72 L (74-99) mg/dL Microbiology - Last 24 Hours (Table) 01/29/18 08:28 Urine Culture - Preliminary Urine,Voided Assessment and Plan Plan: Assessment: #1. Status post donor renal allograft secondary to membranous nephropathy in March 2005 at [facility]. #2. Chronic kidney disease stage II with baseline creatinine near 1. #3. Mild acute allograft dysfunction mostly prerenal secondary to diuresis. Improved. Creatinine 1 today. #4. Hypokalemia secondary to diuresis. Hypomagnesemia also contributing factor. Improved post replacement. #5. Hypomagnesemia secondary to diuretics. Improved post replacement. #6. Atrial fibrillation with RVR. Maintain on Lopressor. Cardiology following. #7. Diastolic CHF with mild to moderate mitral regurgitation. #8. Volume overload. Improving. Plan: Maintain Prograf 1 mg twice daily and Myfortic 360 mg twice daily. Maintain Lasix 40 mg IV twice daily for now. Low-salt diet. Replace potassium. 40 mEq today. I will add maintenance potassium supplementation 20 mEq daily. He can be transitioned over to Lasix 40 mg orally in the morning and 20 mg in the evening upon discharge. I advised him to follow a low-salt diet and to restrict his fluid intake to 50- 60 ounces per day. He has an appointment to follow-up as an outpatient on .
[2018-01-30] MEDS: FUROSEMIDE 10 MG/ML 4 ML VIAL IV SCH (08:56)
[2018-01-30] MEDS: DILTIAZEM ORAL 30 MG TAB PO SCH (08:57)
[2018-01-30] MEDS: MYCOPHENOLATE SODIUM DR 180 MG TABLET.DR PO SCH (08:57)
[2018-01-30] MEDS: OXYBUTYNIN CHLORIDE 5 MG TAB PO SCH (08:58)
[2018-01-30] MEDS: FERROUS SULFATE 325 MG TAB PO SCH (08:58)
[2018-01-30] MEDS: TACROLIMUS 1 MG CAP PO SCH (08:58)
[2018-01-30] MEDS: FOLIC ACID 1 MG TAB PO SCH (08:59)
[2018-01-30 09:02] VITALS: RESP 16
[2018-01-30] MEDS: METOPROLOL TARTRATE 50 MG TAB PO SCH (09:42)
[2018-01-30 11:25] VITALS: BP 125/84; PULSE 72; TEMP 97.2
--- NOTE | 2018-01-30 12:03 | P.DS ---
Providers Date of admission: 01/27/18 12:23 Expected date of discharge: 01/30/18 Attending physician: Zion Polk Consults: 01/27/18 12:07 Consult Physician Urgent Consulting Provider: [facility] Consult Reason/Comments: New-onset A. fib Do you want consulting provider notified?: Yes 01/27/18 14:49 Consult Physician Routine Consulting Provider: Sneha Gauthier Consult Reason/Comments: post transplant Do you want consulting provider notified?: Yes Primary care physician: [facility] Course: This is a pleasant 67-year-old male, well-known to my partner. He began experiencing increased fatigue and shortness of breath. He was seen in the office briefly by my partner, called EMS, concerned about a pulmonary embolism. Emergency room he was found to be in atrial fibrillation with rapid ventricular response. He is admitted and consultations were obtained from cardiology, and nephrology. He also has a history of kidney transplant 2004. History of lung carcinoma with left upper lobe resection and of tongue carcinoma with radiation therapy in 2013. He is feeling better now. He continues to complain of swelling noted to the right greater than left leg. He also indicated that he was having pain in the right foot, affecting his ability to walk. He is been seen by both nephrology and cardiology for the past several days of medications adjusted. His rapid ventricular response has been controlled. His A. fib is been anticoagulated. I did appear to have a UTI on UA for 21 and was given 1 dose of Rocephin by nephrology. Gait is a bit unsteady with cane, but does well with a walker. He'll go home with a prescription for a walker and home physical therapy and nursing evaluations. He will switch from Ravin wraps to Jobst toes to help control edema. Final diagnosis New Onset atrial fibrillation with RVR, present on admission, now controlled Right foot pain affecting his ability to ambulate, improved, present on admission Bilateral lower extremity edema greater in the right foot, improved Acute on chronic Diastolic Congestive heart failure mild to moderate mitral regurgitation ,present on admission Weakness and fatigue from medical conditions h/o Kidney Transplant Terell term immunosuppression Chronic renal failure stage II Electrolyte abnormalities, present on admission, resolved Long-term anticoagulation due to atrial fibrillation Patient Condition at Discharge: Fair Plan - Discharge Summary Discharge Rx Participant: Yes New Discharge Prescriptions: New Apixaban [Eliquis] 5 mg PO BID@0600,1800 #60 tab Diltiazem Oral [Cardizem*] 30 mg PO TID #90 tab Furosemide [Lasix] 20 mg PO BID #90 tab Continue Tacrolimus [Prograf] 1 mg PO BID ALPRAZolam [Xanax] 0.5 mg PO TID PRN PRN Reason: Anxiety Multivitamins, Thera [Multivitamin (formulary)] 1 tab PO DAILY Ferrous Sulfate [Iron (65 MG Elemental)] 325 mg PO DAILY Cyanocobalamin (Vitamin B-12) [Vitamin B-12] 1,000 mcg PO DAILY Mycophenolate Sodium [Mycophenolic Acid] 360 mg PO BID Metoprolol Tartrate [Lopressor] 25 mg PO BID HYDROcodone/APAP 7.5-325MG [[place] 7.5-325] 1 tab PO QID Enalapril [Vasotec] 10 mg PO BID Folic Acid(Unknown Dose) 1 tab PO DAILY Oxybutynin Chloride [Ditropan] 2.5 mg PO BID Dexamethasone 1 mg PO BID Discontinued amLODIPine [Norvasc] 5 mg PO BID Discharge Medication List Tacrolimus [Prograf] 1 mg PO BID 11/15/14 [History] ALPRAZolam [Xanax] 0.5 mg PO TID PRN 01/27/18 [History] Cyanocobalamin (Vitamin B-12) [Vitamin B-12] 1,000 mcg PO DAILY 01/27/18 [ History] Dexamethasone 1 mg PO BID 01/27/18 [History] Enalapril [Vasotec] 10 mg PO BID 01/27/18 [History] Ferrous Sulfate [Iron (65 MG Elemental)] 325 mg PO DAILY 01/27/18 [History] Folic Acid(Unknown Dose) 1 tab PO DAILY 01/27/18 [History] HYDROcodone/APAP 7.5-325MG [[place] 7.5-325] 1 tab PO QID 01/27/18 [History] Metoprolol Tartrate [Lopressor] 25 mg PO BID 01/27/18 [History] Multivitamins, Thera [Multivitamin (formulary)] 1 tab PO DAILY 01/27/18 [History ] Mycophenolate Sodium [Mycophenolic Acid] 360 mg PO BID 01/27/18 [History] Oxybutynin Chloride [Ditropan] 2.5 mg PO BID 01/27/18 [History] Apixaban [Eliquis] 5 mg PO BID@0600,1800 #60 tab 01/30/18 [Rx] Diltiazem Oral [Cardizem*] 30 mg PO TID #90 tab 01/30/18 [Rx] Furosemide [Lasix] 20 mg PO BID #90 tab 01/30/18 [Rx] Follow up Appointment(s)/Referral(s): Pancho Casper Jr, DO [Primary Care Provider] - 1-2 days Carlos Enrique Walker MD [STAFF PHYSICIAN] - 1 Week Mehul Lunsford DO [STAFF PHYSICIAN] - 1 Week Discharge Disposition: HOME WITH HOME HEALTH SERVICES
--- NOTE | 2018-01-30 12:43 | PN ---
PROGRESS NOTE Otoniel Meyer is a 67-year-old male who presented with symptoms of progressive dyspnea and extremity weakness, was noted to have significant peripheral edema and noted to be in atrial fibrillation of unknown duration. He is feeling better at this time. He is ambulating. His peripheral edema has improved. He denies any dizziness or palpitation. He denies any nausea. He denies any cough. He continues to be on Eliquis 5 mg twice a day, diltiazem 30 mg 3 times a day, furosemide 40 mg IV q.12 hours. Lisinopril 40 mg daily, metoprolol tartrate 50 mg twice a day. PHYSICAL EXAMINATION: Blood pressure 125/80 with a heart rate in the 70s. LUNGS: Clear. Heart irregularly irregular S1, S2. No S3 with a systolic murmur. ABDOMEN: Soft, nontender. EXTREMITIES: With a 1+ edema, improved. LAB DATA: Lab data revealed BUN and creatinine 31.0, potassium 3.5. IMPRESSION: 1. Atrial fibrillation of unknown duration. Rate is controlled and anticoagulated at this time. 2. Peripheral edema, improved. 3. History of renal transplant. 4. History of lung cancer. RECOMMENDATION: From the cardiac standpoint, I will switch him to oral diuretics. Continue rest of his medical regimen. Continue to increase his level of activity. From the cardiac standpoint he is stable to be discharged home and follow up as an outpatient with Dr. Allred. MMDONNIEL / ANASTASIA: [id number] /
[2018-01-31] MEDS ORDERED: POTASSIUM CHLORIDE ER 20 MEQ TAB.ER PO SCH (09:00)
== END 2018-01-30 14:51 | disposition home health service (06) | DRG 308 ==
LOC: EC 09:43 → OBSVTOIN 12:23 → 6SEL 12:23
PROVIDERS: ADMIT Family Medicine; ATTEND Family Medicine
DX: I48.91 Unspecified atrial fibrillation (principal); I50.33 Acute on chronic diastolic (congestive) heart failure; T86.19 Other complication of kidney transplant; I08.1 Rheumatic disorders of both mitral and tricuspid valves; E83.42 Hypomagnesemia; Z94.0 Kidney transplant status; I13.0 Hypertensive heart and chronic kidney disease with heart failure and stage 1 through stage 4 chronic kidney disease, or unspecified chronic kidney disease; N39.0 Urinary tract infection, site not specified; M79.671 Pain in right foot; N18.2 Chronic kidney disease, stage 2 (mild); F32.9 Major depressive disorder, single episode, unspecified; F41.9 Anxiety disorder, unspecified; Z96.643 Presence of artificial hip joint, bilateral; H91.90 Unspecified hearing loss, unspecified ear; R53.1 Weakness; T50.2X5A Adverse effect of carbonic-anhydrase inhibitors, benzothiadiazides and other diuretics, initial encounter; R01.1 Cardiac murmur, unspecified; E87.6 Hypokalemia; Z79.82 Long term (current) use of aspirin; Z79.899 Other long term (current) drug therapy; Z79.01 Long term (current) use of anticoagulants; Z79.891 Long term (current) use of opiate analgesic; Z82.49 Family history of ischemic heart disease and other diseases of the circulatory system; Z84.1 Family history of disorders of kidney and ureter; Z87.891 Personal history of nicotine dependence; Z90.2 Acquired absence of lung [part of]; Z90.89 Acquired absence of other organs; Z92.21 Personal history of antineoplastic chemotherapy; Z92.3 Personal history of irradiation; Z87.2 Personal history of diseases of the skin and subcutaneous tissue; Z85.118 Personal history of other malignant neoplasm of bronchus and lung; Z85.810 Personal history of malignant neoplasm of tongue; Z90.49 Acquired absence of other specified parts of digestive tract
CPT/HCPCS: 36415; 71046; 80048; 80053; 80061; 80320; 81001; 82550; 82553; 83735; 83880; 84132; 84443; 84484; 85025; 85379; 85610; 85730; 87077; 87086; 87186; 93005; 93306; 96365; 96376; 99285

== ENCOUNTER 2018-04-14 08:01 | Observation (INO) | payer MEDICARE, OTHER ==
[2018-04-14] MEDS ORDERED: cefTRIAXone IN SWFI 1,000 MG/10 ML SYRINGE IVP STA (08:36)
[2018-04-14] MEDS ORDERED: VANCOMYCIN IV PER PHARMACY 1 EACH MISC MISCELLANE PRN (08:36)
[2018-04-14] MEDS ORDERED: ACETAMINOPHEN TAB 500 MG TAB PO STA (08:36)
[2018-04-14] MEDS ORDERED: MORPHINE SULFATE 2 MG/ML SYRINGE IVP STA (08:40)
[2018-04-14] MEDS ORDERED: VANCOMYCIN 1,250 MG in SODIUM CHLORIDE 0.9% 250 ML IVPB STA (08:44)
--- NOTE | 2018-04-14 08:52 | ED ---
General Adult HPI - General Chief complaint: Extremity Problem,Nontraumatic Stated complaint: rt leg pain/swelling Time Seen by Provider: 04/14/18 08:23 Source: patient Mode of arrival: wheelchair Limitations: no limitations - History of Present Illness Initial comments: 67 years old male complains about right leg redness he has a mild fever he has a quite complex past medical history history of firm Cancer Status Post Radiation Is Also Status Post Kidney Transplant He Has Been Compliant with His rejection medications for kidney transplant yesterday he was quite active and now the right lower leg right lower extremity is quite red he noticed some fluid oozing out of it he noticed some swelling and quite a bit of foot pain. He also has spinal stenosis and now disc disease he is scheduled to be operated by a spine surgeon soon his concern is about the blood clot in his leg and the pain is excruciating in the lower back is asking for some pain medications. Review of system is unremarkable otherwise - Related Data Home Medications Medication Instructions Recorded Confirmed Tacrolimus [Prograf] 2 mg PO BID 11/15/14 04/14/18 ALPRAZolam [Xanax] 0.5 mg PO TID PRN 01/27/18 04/14/18 Cyanocobalamin (Vitamin B-12) 1,000 mcg PO DAILY 01/27/18 04/14/18 [Vitamin B-12] Enalapril [Vasotec] 10 mg PO BID 01/27/18 04/14/18 Ferrous Sulfate [Iron (65 MG 325 mg PO DAILY 01/27/18 04/14/18 Elemental)] Folic Acid(Unknown Dose) 1 tab PO DAILY 01/27/18 04/14/18 HYDROcodone/APAP 7.5-325MG [[place] 1 tab PO QID 01/27/18 04/14/18 7.5-325] Metoprolol Tartrate [Lopressor] 25 mg PO BID 01/27/18 04/14/18 Multivitamins, Thera [Multivitamin 1 tab PO DAILY 01/27/18 04/14/18 (formulary)] Mycophenolate Sodium [Mycophenolic 360 mg PO BID 01/27/18 04/14/18 Acid] Allopurinol [Zyloprim] 100 mg PO DAILY 04/14/18 04/14/18 Furosemide [Lasix] 20 mg PO QID 04/14/18 04/14/18 Previous Rx's Medication Instructions Recorded Apixaban [Eliquis] 5 mg PO BID@0600,1800 #60 tab 01/30/18 Diltiazem Oral [Cardizem*] 30 mg PO TID #90 tab 01/30/18 Allergies Allergy/AdvReac Type Severity Reaction Status Date / Time No Known Allergies Allergy Verified 04/14/18 09:21 Review of Systems ROS Statement: Those systems with pertinent positive or pertinent negative responses have been documented in the HPI. ROS Other: All systems not noted in ROS Statement are negative. Past Medical History Past Medical History: Hearing Disorder / Deafness, Hypertension, Renal Disease, Skin Disorder Additional Past Medical History / Comment(s): HX OF RENAL FAILURE, ON PERITONEAL DIALYSIS [id number]; HAD RENAL TRANSPLANT 2004; WEARS HEARING AIDE BILATERALLY; HX OF RENAL DISEASE PRIOR TO TRANSPLANT; MILD PSORIASIS ARMS, LEGS AND BACK. SICNE CHEMO THE PSORIAIS HAS CLEARED History of Any Multi-Drug Resistant Organisms: None Reported Past Surgical History: Appendectomy, Joint Replacement, Tonsillectomy Additional Past Surgical History / Comment(s): CHEMO AND RADIATION FOR TONGUE. PEG TUBE PLACED 1 YR AGO. HAD LEFT THORACOTOMY WITH UPPER LOBECTOMY 2013. BILATERAL HIP REPLACEMENT Past Anesthesia/Blood Transfusion Reactions: No Reported Reaction Past Psychological History: Anxiety, Depression Smoking Status: Former smoker Past Alcohol Use History: Occasional Past Drug Use History: None Reported - Past Family History Father Family Medical History: Coronary Artery Disease (CAD), Renal Disease Additional Family Medical History / Comment(s): Father at the age of 80yrs. Mother Family Medical History: Coronary Artery Disease (CAD) Additional Family Medical History / Comment(s): Mother at the age of 70yrs. General Exam - General Exam Comments Initial Comments: General: The patient is awake and alert, in no distress, and does not appear acutely ill. Skin: Skin is warm and erythematous, tender over the right lower extremity erythema is quite extensive and noticed some mom +2 edema as well Eye: Pupils are equal, round and reactive to light, extra-ocular movements are intact; there is normal conjunctiva bilaterally. Ears, nose, mouth and throat: There are moist mucous membranes and no oral lesions. Neck: The neck is supple, there is no tenderness Cardiovascular: There is a regular rate and rhythm. No murmur, rub or gallop is appreciated. Respiratory: To auscultation bilateral, no wheezing no rhonchi no distress respiratory lopez noticed Gastrointestinal: Soft, non-distended, non-tender abdomen without masses or organomegaly noted. There is no rebound or guarding present. Bowel sounds are unremarkable. Back: There is no tenderness to palpation in the midline. There is no obvious deformity. Musculoskeletal: Normal ROM, no tenderness, There is no pedal edema. There is no calf tenderness or swelling. No cords were appreciated. Neurological: CN II-XII intact, Cranial nerves III through XII are intact. There are no obvious motor or sensory deficits. Coordination appears grossly intact. Speech is normal. Psychiatric: Cooperative, appropriate mood & affect, normal judgment. Limitations: no limitations Course Vital Signs 04/14/18 04/14/18 08:13 09:17 Temperature 100.4 F H Pulse Rate 101 H 110 H Respiratory 18 18 Rate Blood Pressure 120/80 133/67 O2 Sat by Pulse 97 98 Oximetry Considering that he is immune compromised is a kidney transplant patient he had a fever of 100.4 he still tachycardic 110 and his potassium was low at 2.7 was given broad-spectrum antibiotic of blood cultures urine cultures were done and now I some EKG changes I compared this EKG with the EKG EKG done on January [address] depression in V4 V5 and V6 though he didn't complain about any chest pain and recommended that we'll keep him observation under Dr. Loja's service and continue the broad-spectrum antibiotics that we get the blood culture back and have him see shaft sinker EKG Findings - EKG Comments: EKG Findings:: EKG is atrial fibrillation he has history of atrial fibrillation ventricular rate is 87 [place] interval, QRS duration is 1 or 2 QT/QTc is 4/483 review of this EKG does not reveal any ST elevation noticed ST depression and now inverted T-wave in lead V4 V5 and V6 Medical Decision Making - Lab Data Result diagrams: 04/14/18 08:55 04/14/18 08:55 Lab Results 04/14/18 04/14/18 04/14/18 Range/Units 08:55 08:55 08:55 WBC 9.2 (3.8-10.6) k/uL RBC 4.18 L (4.30-5.90) m/uL Hgb 13.9 (13.0-17.5) gm/dL Hct 41.5 (39.0-53.0) % MCV 99.2 (80.0-100.0) fL MCH 33.2 (25.0-35.0) pg MCHC 33.4 (31.0-37.0) g/dL RDW 13.7 (11.5-15.5) % Plt Count 132 L (150-450) k/uL Neutrophils % 90 % Lymphocytes % 4 % Monocytes % 4 % Eosinophils % 1 % Basophils % 0 % Neutrophils # 8.3 H (1.3-7.7) k/uL Lymphocytes # 0.4 L (1.0-4.8) k/uL Monocytes # 0.4 (0-1.0) k/uL Eosinophils # 0.1 (0-0.7) k/uL Basophils # 0.0 (0-0.2) k/uL PT (9.0-12.0) sec INR (<1.2) APTT (22.0-30.0) sec Sodium 140 (137-145) mmol/L Potassium 2.7 L* (3.5-5.1) mmol/L Chloride 97 L (98-107) mmol/L Carbon Dioxide 34 H (22-30) mmol/L Anion Gap 9 mmol/L BUN 23 H (9-20) mg/dL Creatinine 1.05 (0.66-1.25) mg/dL Est GFR (CKD-EPI)AfAm 86 (>60 ml/min/1.73 sqM) Est GFR (CKD-EPI)NonAf 75 (>60 ml/min/1.73 sqM) Glucose 84 (74-99) mg/dL Plasma Lactic Acid Emre 1.0 (0.7-2.0) mmol/L Calcium 8.7 (8.4-10.2) mg/dL Total Bilirubin 1.9 H (0.2-1.3) mg/dL AST 24 (17-59) U/L ALT 52 (21-72) U/L Alkaline Phosphatase 52 (38-126) U/L Total Protein 5.2 L (6.3-8.2) g/dL Albumin 3.4 L (3.5-5.0) g/dL Urine Color Urine Appearance (Clear) Urine pH (5.0-8.0) Ur Specific [place] (1.001-1.035) Urine Protein (Negative) Urine Glucose (UA) (Negative) Urine Ketones (Negative) Urine Blood (Negative) Urine Nitrite (Negative) Urine Bilirubin (Negative) Urine Urobilinogen (<2.0) mg/dL Ur Leukocyte Esterase (Negative) 04/14/18 04/14/18 Range/Units 08:55 09:30 WBC (3.8-10.6) k/uL RBC (4.30-5.90) m/uL Hgb (13.0-17.5) gm/dL Hct (39.0-53.0) % MCV (80.0-100.0) fL MCH (25.0-35.0) pg MCHC (31.0-37.0) g/dL RDW (11.5-15.5) % Plt Count (150-450) k/uL Neutrophils % % Lymphocytes % % Monocytes % % Eosinophils % % Basophils % % Neutrophils # (1.3-7.7) k/uL Lymphocytes # (1.0-4.8) k/uL Monocytes # (0-1.0) k/uL Eosinophils # (0-0.7) k/uL Basophils # (0-0.2) k/uL PT 11.1 (9.0-12.0) sec INR 1.2 H (<1.2) APTT 26.0 (22.0-30.0) sec Sodium (137-145) mmol/L Potassium (3.5-5.1) mmol/L Chloride (98-107) mmol/L Carbon Dioxide (22-30) mmol/L Anion Gap mmol/L BUN (9-20) mg/dL Creatinine (0.66-1.25) mg/dL Est GFR (CKD-EPI)AfAm (>60 ml/min/1.73 sqM) Est GFR (CKD-EPI)NonAf (>60 ml/min/1.73 sqM) Glucose (74-99) mg/dL Plasma Lactic Acid Emre (0.7-2.0) mmol/L Calcium (8.4-10.2) mg/dL Total Bilirubin (0.2-1.3) mg/dL AST (17-59) U/L ALT (21-72) U/L Alkaline Phosphatase (38-126) U/L Total Protein (6.3-8.2) g/dL Albumin (3.5-5.0) g/dL Urine Color Light Yellow Urine Appearance Clear (Clear) Urine pH 7.0 (5.0-8.0) Ur Specific [place] 1.006 (1.001-1.035) Urine Protein Trace H (Negative) Urine Glucose (UA) Negative (Negative) Urine Ketones Negative (Negative) Urine Blood Negative (Negative) Urine Nitrite Negative (Negative) Urine Bilirubin Negative (Negative) Urine Urobilinogen <2.0 (<2.0) mg/dL Ur Leukocyte Esterase Negative (Negative) Disposition Clinical Impression: Fever, History of kidney transplant, Cellulitis, leg, Acute electrocardiogram changes Disposition: ADMITTED IP TO THIS [facility] Condition: Good Referrals: Pancho Casper Jr, DO [Primary Care Provider] - 1-2 days
[2018-04-14 09:10] LABS: Basophils % (A) 0 %; Eosinophils # (A) 0.1 k/uL (0-0.7); Eosinophils % (A) 1 %; HCT 41.5 % (39.0-53.0); HGB 13.9 gm/dL (13.0-17.5); Lymphocytes # (A) 0.4 k/uL (1.0-4.8); Lymphocytes % (A) 4 %; MCH 33.2 pg (25.0-35.0); MCHC 33.4 g/dL (31.0-37.0); MCV 99.2 fL (80.0-100.0); Mean Platelet Volume 6.7; Monocytes # (A) 0.4 k/uL (0-1.0); Monocytes % (A) 4 %; Neutrophils # (A) 8.3 k/uL (1.3-7.7); Neutrophils % (A) 90 %; Platelet Count 132 k/uL (150-450); RBC 4.18 m/uL (4.30-5.90); RDW 13.7 % (11.5-15.5); WBC 9.2 k/uL (3.8-10.6)
[2018-04-14 09:15] LABS: INR 1.2 (<1.2); Prothrombin Time 11.1 sec (9.0-12.0)
[2018-04-14 09:16] LABS: Albumin 3.4 g/dL (3.5-5.0); Calcium 8.7 mg/dL (8.4-10.2); Total Bilirubin 1.9 mg/dL (0.2-1.3); Total Protein 5.2 g/dL (6.3-8.2)
[2018-04-14 09:20] LABS: Potassium 2.7 mmol/L (3.5-5.1)
[2018-04-14] MEDS ORDERED: POTASSIUM BICARBONATE/CIT AC 20 MEQ TABLET.EFF PO ONE (09:24)
[2018-04-14] MEDS: SODIUM CHLORIDE 0.9% 500 ML IV SCH ×2 (09:28→16:59)
[2018-04-14 09:52] LABS: Appearance,Urine Clear (Clear); Bilirubin,Urine Negative (Negative); Blood,Urine Negative (Negative); Color,Urine Light Yellow; Glucose,Urine (UA) Negative (Negative); Ketones,Urine Negative (Negative); Leukocyte Esterase,Urine Negative (Negative); Nitrite,Urine Negative (Negative); Protein,Urine Trace (Negative); Specific Gravity,Urine 1.006 (1.001-1.035); Urobilinogen,Urine <2.0 mg/dL (<2.0)
--- NOTE | 2018-04-14 10:24 | US ---
EXAMINATION TYPE: US venous doppler duplex LE RT DATE OF EXAM: 04/14/2018 9:56 AM COMPARISON: CLINICAL HISTORY: Pain. Calf redness with discharge. On blood thinners. Pain. SIDE PERFORMED: Right TECHNIQUE: The lower extremity deep venous system is examined utilizing real time linear array sonog conchita with graded compression, doppler sonography and color-flow sonography. VESSELS IMAGED: External Iliac Vein (EIV) Common Femoral Vein Deep Femoral Vein Greater Saphenous Vein * Femoral Vein Popliteal Vein Small Saphenous Vein * Proximal Calf Veins (* superficial vessels) Grayscale, color doppler, spectral doppler imaging performed of the deep veins of the lower extremiti es. Right Leg: Negative for DVT. Arterial shadowing seen. There is normal color flow and compressibility, normal vascular waveforms within the deep veins of th e right lower extremity IMPRESSION: No evident deep venous thrombosis at or above the right knee.
[2018-04-14] MEDS ORDERED: NALOXONE 0.4 MG/ML 1 ML VIAL IV PRN (10:50)
[2018-04-14] MEDS ORDERED: ONDANSETRON 4 MG/2 ML VIAL IVP PRN (10:50)
[2018-04-14] MEDS ORDERED: ACETAMINOPHEN TAB 325 MG TAB PO PRN (10:50)
[2018-04-14] MEDS ORDERED: MORPHINE SULFATE 2 MG/ML SYRINGE IV PRN (10:50)
[2018-04-14] MEDS ORDERED: ALPRAZolam 0.5 MG TAB PO PRN (10:54)
--- NOTE | 2018-04-14 11:16 | XR ---
EXAMINATION TYPE: XR chest 1V portable DATE OF EXAM: 04/14/2018 Comparison: 01/27/2018 Clinical History: 67-year-old male with fever Findings: Heart upper limits of normal in size. Bilateral nipple shadows noted. Surgical material in chronic fo davina left midlung opacity noted. No new consolidation or pleural effusion. Impression: Stable postsurgical change and focal left midlung opacity likely all postsurgical in etiology. Bilate ral nipple shadows. No acute change seen.
--- NOTE | 2018-04-14 12:32 | P.NPCON ---
History of Present Illness - Reason for Consult chronic renal failure - History of Present Illness Reason for consultation: Renal transplant management History of present illness: Patient is a 67-year-old male seen in renal consultation for renal transplant management. Patient received a donor renal allograft in March 2005. He is currently maintained on Prograf and Myfortic for immunosuppression. Patient has history of diastolic CHF and mild to moderate mitral regurgitation. He is maintained on Lasix 20 mg 4 times daily. Patient states he noticed right lower extremity redness about 2 days ago with some oozing. Patient was concerned about a blood clot and therefore presented to the hospital. Ultrasound revealed no evidence of deep and thrombosis. Oral intake is good. Denies any vomiting or diarrhea. Potassium level was low at 2.7 but he states he ran out of potassium supplementation about 3 days ago and was waiting to get a refill. He denies any chest pain or shortness of breath. Admits to good urine output. No hematuria or dysuria. Denies use of NSAIDs. Vital signs are stable. General: The patient appeared well nourished and normally developed. HEENT: Head exam is unremarkable. Neck is without jugular venous distension. LUNGS: Lungs are clear to auscultation and percussion. Breath sounds decreased. HEART: Rate and Rhythm are regular. First and second heart sounds normal. No murmurs, rubs or gallops. ABDOMEN: Abdominal exam reveals normal bowel sounds. Non-tender and non- distended. No evidence of peritonitis. EXTREMITITES: 1+ edema. Right lower extremity erythema noted. Past Medical History Past Medical History: Hearing Disorder / Deafness, Hypertension, Renal Disease, Skin Disorder Additional Past Medical History / Comment(s): HX OF RENAL FAILURE, ON PERITONEAL DIALYSIS [id number]; HAD RENAL TRANSPLANT 2004; WEARS HEARING AIDE BILATERALLY; HX OF RENAL DISEASE PRIOR TO TRANSPLANT; MILD PSORIASIS ARMS, LEGS AND BACK. SICNE CHEMO THE PSORIAIS HAS CLEARED History of Any Multi-Drug Resistant Organisms: None Reported Past Surgical History: Appendectomy, Joint Replacement, Tonsillectomy Additional Past Surgical History / Comment(s): CHEMO AND RADIATION FOR TONGUE. PEG TUBE PLACED 1 YR AGO. HAD LEFT THORACOTOMY WITH UPPER LOBECTOMY 2013. BILATERAL HIP REPLACEMENT Past Anesthesia/Blood Transfusion Reactions: No Reported Reaction Past Psychological History: Anxiety, Depression Smoking Status: Former smoker Past Alcohol Use History: Occasional Past Drug Use History: None Reported - Past Family History Father Family Medical History: Coronary Artery Disease (CAD), Renal Disease Additional Family Medical History / Comment(s): Father at the age of 80yrs. Mother Family Medical History: Coronary Artery Disease (CAD) Additional Family Medical History / Comment(s): Mother at the age of 70yrs. Medications and Allergies Home Medications Medication Instructions Recorded Confirmed Type Tacrolimus [Prograf] 2 mg PO BID 11/15/14 04/14/18 History ALPRAZolam [Xanax] 0.5 mg PO TID PRN 01/27/18 04/14/18 History Cyanocobalamin (Vitamin B-12) 1,000 mcg PO DAILY 01/27/18 04/14/18 History [Vitamin B-12] Enalapril [Vasotec] 10 mg PO BID 01/27/18 04/14/18 History Ferrous Sulfate [Iron (65 MG 325 mg PO DAILY 01/27/18 04/14/18 History Elemental)] Folic Acid(Unknown Dose) 1 tab PO DAILY 01/27/18 04/14/18 History HYDROcodone/APAP 7.5-325MG [[place] 1 tab PO QID 01/27/18 04/14/18 History 7.5-325] Metoprolol Tartrate [Lopressor] 25 mg PO BID 01/27/18 04/14/18 History Multivitamins, Thera [Multivitamin 1 tab PO DAILY 01/27/18 04/14/18 History (formulary)] Mycophenolate Sodium [Mycophenolic 360 mg PO BID 01/27/18 04/14/18 History Acid] Apixaban [Eliquis] 5 mg PO BID@0600,1800 #60 tab 01/30/18 04/14/18 Rx Diltiazem Oral [Cardizem*] 30 mg PO TID #90 tab 01/30/18 04/14/18 Rx Allopurinol [Zyloprim] 100 mg PO DAILY 04/14/18 04/14/18 History Furosemide [Lasix] 20 mg PO QID 04/14/18 04/14/18 History Allergies Allergy/AdvReac Type Severity Reaction Status Date / Time No Known Allergies Allergy Verified 04/14/18 09:21 Physical Exam Vitals: Vital Signs Temp Pulse Resp BP Pulse Ox 07/05/18 11:00 98.4 F 97 18 127/84 92 L 04/14/18 09:17 110 H 18 133/67 98 04/14/18 08:13 100.4 F H 101 H 18 120/80 97 Intake and Output 04/13/18 04/14/18 04/14/18 22:59 06:59 14:59 Other: Weight 64.41 kg Results - Lab Results Most recent lab results Calcium 8.7 mg/dL (8.4-10.2) 04/14/18 08:55 04/14/18 08:55 04/14/18 08:55 Assessment and Plan Plan: Assessment: 1. Status post donor renal allograft in March 2005. 2. Chronic kidney disease stage II with baseline creatinine near 1. 3. Right lower extremity cellulitis. No evidence of deep vein thrombosis. 4. Chronic diastolic CHF with mild to moderate mitral regurgitation. 5. Hypokalemia secondary to diuresis. Rule out magnesium deficiency. Plan: I will decrease Lasix to 20 mg orally twice daily. Continue Prograf and Myfortic. Encouraged oral intake. Potassium has been replaced. Check magnesium level. Repeat electrolytes in the morning. Thank you for the consultation. I will continue to follow the patient with you during his hospital stay.
--- NOTE | 2018-04-14 12:37 | P.HPIM ---
History of Present Illness H&P Date: 04/14/18 Chief Complaint: RLE redness and pain 67-year-old male who presented to the emergency room with a chief complaint of pain and redness to his right lower extremity. The patient states he was out on his boat yesterday for the holiday and began having increased pain and soreness to his right lower extremity. He also reports increased erythema and drainage from his leg. With his symptoms not improving this morning , he presented to the emergency room for further evaluation. The patient was hospitalized in January 2018 for new onset atrial fibrillation. EKG performed in the emergency room showed atrial fibrillation with ST depression in V4-V6, which was not present on EKG in January 2018. The patient denies any chest pain, pressure, or shortness of breath. The patient states he saw Dr. Walker two days ago outpatient. Patient states he was not told he had any changes to his EKG at that time. Most recent echocardiogram available is from January 2018 which reveals ejection fraction of 55 -60%, mild aortic regurgitation, mild-to- moderate mitral regurgitation, trace tricuspid regurgitation, and borderline pulmonary hypertension. The patient has a history of chronic back pain and is scheduled for surgery at the end of this month for a herniated disc per patient. He reports difficulty ambulating and has been using crutches to get around. 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 The patient has a history of renal failure and was on peritoneal dialysis from 2003 to 2004 and underwent kidney transplant in 2004. He has a history of lung cancer with thoracotomy and left upper lobe lobectomy in August 2014. He has a history of tongue cancer and underwent radiation. He also underwent PEG tube placement secondary to malnutrition. Additional history includes anxiety and depression. He is a former cigarette smoker and quit in 2000. He reports increased alcohol use when he was diagnosed with cancer and reports 2-3 alcoholic drinks a night. Chest x-ray was negative for acute process. Venous doppler of right lower extremity was negative for a DVT. The patient was febrile upon admission at 100.4F. He is mildly tachycardic with a heart rate of 101-110. Laboratory data: WBC 9.2. Hemoglobin 13.9. Platelet count 132. Sodium 140. Potassium 2.7. BUN 23. Creatinine 1.05. GFR 75. Glucose 84. Urinalysis reveals trace proteinuria but otherwise unremarkable. The patient was admitted to the hospital under the care of Dr. Polk to the observation unit. Consultations were placed to cardiology. Review of Systems GENERAL: Patient denies fever, however was febrile upon admission. Denies chills. EYES: Denies blurred vision. Denies vision changes. Denies eye pain. EARS, NOSE, MOUTH, & THROAT: Denies headache. Denies sore throat. Denies ear pain. RESPIRATORY: Denies cough. Denies shortness of breath. Denies sputum production. Denies hemoptysis. CARDIOVASCULAR: Denies chest pain or pressure. Denies palpitations. Positive for history of afib. GASTROINTESTINAL: Denies abdominal pain. Denies diarrhea. Denies constipation. Denies nausea. Denies vomiting. Denies heartburn. Denies blood in the stool. GENITOURINARY: Denies urinary frequency. Denies burning. Denies dysuria. Denies cloudy urine. Denies blood in the urine. MUSCULOSKELETAL: Positive for chronic back pain. Positive for difficulty ambulating and uses crutches. INTEGUMENTARY: Positive for increased pain, soreness, erythema, and drainage to right lower extremity. PSYCHIATRIC: Denies suicidal or homicial ideations. ENDOCRINE: Denies weight change. Denies polydipsia. Denies polyuria. HEMATOLOGIC: Denies bleeding disorders. Past Medical History Past Medical History: Hearing Disorder / Deafness, Hypertension, Renal Disease, Skin Disorder Additional Past Medical History / Comment(s): HX OF RENAL FAILURE, ON PERITONEAL DIALYSIS [id number]; HAD RENAL TRANSPLANT 2004; WEARS HEARING AIDE BILATERALLY; HX OF RENAL DISEASE PRIOR TO TRANSPLANT; MILD PSORIASIS ARMS, LEGS AND BACK. SICNE CHEMO THE PSORIAIS HAS CLEARED History of Any Multi-Drug Resistant Organisms: None Reported Past Surgical History: Appendectomy, Joint Replacement, Tonsillectomy Additional Past Surgical History / Comment(s): CHEMO AND RADIATION FOR TONGUE. PEG TUBE PLACED 1 YR AGO. HAD LEFT THORACOTOMY WITH UPPER LOBECTOMY 2013. BILATERAL HIP REPLACEMENT Past Anesthesia/Blood Transfusion Reactions: No Reported Reaction Past Psychological History: Anxiety, Depression Smoking Status: Former smoker Past Alcohol Use History: Occasional Past Drug Use History: None Reported - Past Family History Father Family Medical History: Coronary Artery Disease (CAD), Renal Disease Additional Family Medical History / Comment(s): Father at the age of 80yrs. Mother Family Medical History: Coronary Artery Disease (CAD) Additional Family Medical History / Comment(s): Mother at the age of 70yrs. Medications and Allergies Home Medications Medication Instructions Recorded Confirmed Type Tacrolimus [Prograf] 2 mg PO BID 11/15/14 04/14/18 History ALPRAZolam [Xanax] 0.5 mg PO TID PRN 01/27/18 04/14/18 History Cyanocobalamin (Vitamin B-12) 1,000 mcg PO DAILY 01/27/18 04/14/18 History [Vitamin B-12] Enalapril [Vasotec] 10 mg PO BID 01/27/18 04/14/18 History Ferrous Sulfate [Iron (65 MG 325 mg PO DAILY 01/27/18 04/14/18 History Elemental)] Folic Acid(Unknown Dose) 1 tab PO DAILY 01/27/18 04/14/18 History HYDROcodone/APAP 7.5-325MG [[place] 1 tab PO QID 01/27/18 04/14/18 History 7.5-325] Metoprolol Tartrate [Lopressor] 25 mg PO BID 01/27/18 04/14/18 History Multivitamins, Thera [Multivitamin 1 tab PO DAILY 01/27/18 04/14/18 History (formulary)] Mycophenolate Sodium [Mycophenolic 360 mg PO BID 01/27/18 04/14/18 History Acid] Apixaban [Eliquis] 5 mg PO BID@0600,1800 #60 tab 01/30/18 04/14/18 Rx Diltiazem Oral [Cardizem*] 30 mg PO TID #90 tab 01/30/18 04/14/18 Rx Allopurinol [Zyloprim] 100 mg PO DAILY 04/14/18 04/14/18 History Furosemide [Lasix] 20 mg PO QID 04/14/18 04/14/18 History Allergies Allergy/AdvReac Type Severity Reaction Status Date / Time No Known Allergies Allergy Verified 04/14/18 09:21 Physical Exam Vitals: Vital Signs Temp Pulse Resp BP Pulse Ox 04/14/18 09:17 110 H 18 133/67 98 04/14/18 08:13 100.4 F H 101 H 18 120/80 97 Intake and Output 04/13/18 04/14/18 04/14/18 22:59 06:59 14:59 Other: Weight 64.41 kg GENERAL: This is a 67-year-old male in no apparent distress at the time of examination. Pleasant and cooperative. HEENT: Head is atraumatic, normocephalic. Sclerae anicteric. Conjunctivae are clear. Mucus membranes of the mouth are moist. Neck is supple. RESPIRATORY: Clear to ausculation. No wheezes, rales, or rhonchi. No use of accessory muscles. Patient maintaining oxygen saturation greater than 92%. No chest wall tenderness is noted on palpation or with deep breathing. CARDIOVASCULAR: Irregular rhythm. Telemetry reveals atrial fibrillation. S1 and S2 noted. Systolic murmur auscultated. No JVD noted. No S3 or S4 noted. GASTROINTESTINAL: No distention noted. Abdomen soft and round. Normal active bowel sounds auscultated x 4 quadrants. No pain or tenderness noted upon palpation. INTEGUMENTARY: Significant erythema to right lower extremity, warm to touch, 2+ edema, with dime-sized open area of skin on anterior surface of lower extremity with clear drainage noted. No cyanosis. No jaundice. NEUROLOGIC: Cranial nerves II-XII intact. PSYCHIATRIC: Awake, alert, and oriented X 3. Appropriate affect. Intact judgement and insight. Results CBC & Chem 7: 04/14/18 08:55 04/14/18 08:55 Labs: Abnormal Lab Results - Last 24 Hours (Table) 04/14/18 04/14/18 04/14/18 Range/Units 08:55 08:55 08:55 RBC 4.18 L (4.30-5.90) m/uL Plt Count 132 L (150-450) k/uL Neutrophils # 8.3 H (1.3-7.7) k/uL Lymphocytes # 0.4 L (1.0-4.8) k/uL INR 1.2 H (<1.2) Potassium 2.7 L* (3.5-5.1) mmol/L Chloride 97 L (98-107) mmol/L Carbon Dioxide 34 H (22-30) mmol/L BUN 23 H (9-20) mg/dL Total Bilirubin 1.9 H (0.2-1.3) mg/dL Total Protein 5.2 L (6.3-8.2) g/dL Albumin 3.4 L (3.5-5.0) g/dL Urine Protein (Negative) 04/14/18 Range/Units 09:30 RBC (4.30-5.90) m/uL Plt Count (150-450) k/uL Neutrophils # (1.3-7.7) k/uL Lymphocytes # (1.0-4.8) k/uL INR (<1.2) Potassium (3.5-5.1) mmol/L Chloride (98-107) mmol/L Carbon Dioxide (22-30) mmol/L BUN (9-20) mg/dL Total Bilirubin (0.2-1.3) mg/dL Total Protein (6.3-8.2) g/dL Albumin (3.5-5.0) g/dL Urine Protein Trace H (Negative) Assessment and Plan Plan: ASSESSMENT: Cellulitis of right lower extremity, present on admission Difficulty with ambulation, secondary to above and chronic back pain Hypokalemia, potassium 2.7 on admission Chronic atrial fibrillation, on long-term anticoagulation with Eliquis Acute EKG changes, patient asymptomatic, cardiology consulted History of kidney transplant in 2004, on anti-rejection medication with Prograf and Myfortic Immunocompromised, secondary to above Chronic kidney disease, stage II History of lung cancer with left upper lobe lobectomy, 2013 History of tongue cancer History of PEG placement secondary to malnutrition, since removed Hypertension Chronic diastolic congestive heart failure, EF 55-60% Chronic back pain with chronic opioid use, patient reports surgery scheduled April 2018 due to herniated disc Generalized anxiety disorder Depression History of nicotine dependence, in remission, patient quit smoking in 2000 Daily alcohol use PLAN: Cardiology on consult. Await further recommendations and input Continue IV antibiotics Silvadene to RLE daily and wrap with gauze and MEY wrap to the knee Arterial US Replace potassium. Repeat at 1800 and in AM. Check magnesium level Home meds as appropriate Monitor labs GI prophylaxis: Protonix 40 mg PO Daily DVT prophylaxis: Eliquis 5mg PO BID Monitor vital signs and address as appropriate Discharge planning: Patient to return home when stable. Further recommendations pending patient's course Nurse practitioner note has been reviewed by physician. Signing provider agrees with the documented findings, assessment, and plan of care.
[2018-04-14] MEDS ORDERED: Magnesium Replacement Protocol 1 EACH MISC MISCELLANE PRN (12:38)
[2018-04-14] MEDS ORDERED: FUROSEMIDE 20 MG TAB PO SCH (13:00)
[2018-04-14] MEDS: MAGNESIUM SULFATE-D5W PMX 1 GM in DEXTROSE/WATER 1 100ML.BAG IVPB SCH ×3 (13:16→22:20)
[2018-04-14] MEDS: APIXABAN 5 MG TAB PO SCH (17:09)
[2018-04-14] MEDS: FUROSEMIDE 20 MG TAB PO SCH (17:09)
[2018-04-14] MEDS: DILTIAZEM ORAL 30 MG TAB PO SCH ×2 (17:09→22:47)
[2018-04-14] MEDS: HYDROcodone/APAP 7.5-325MG 1 EACH TAB PO PRN ×2 (17:14→22:54)
[2018-04-14 18:13] VITALS: RESP 16
[2018-04-14] MEDS: TACROLIMUS 1 MG CAP PO SCH (20:54)
[2018-04-14] MEDS: MYCOPHENOLATE SODIUM DR 180 MG TABLET.DR PO SCH (20:54)
[2018-04-14] MEDS: METOPROLOL TARTRATE 25 MG TAB PO SCH (20:54)
[2018-04-14] MEDS: VANCOMYCIN 1,250 MG in SODIUM CHLORIDE 0.9% 250 ML IVPB SCH (22:47)
[2018-04-15 03:19] LABS: Anion Gap 8 mmol/L; Blood Urea Nitrogen 27 mg/dL (9-20); Calcium 8.6 mg/dL (8.4-10.2); Carbon Dioxide 30 mmol/L (22-30); Chloride 99 mmol/L (98-107); Glucose 81 mg/dL (74-99); Magnesium 2.2 mg/dL (1.6-2.3); Potassium 3.2 mmol/L (3.5-5.1); Sodium 137 mmol/L (137-145)
[2018-04-15 05:06] LABS: Appearance,Urine Clear (Clear); Bilirubin,Urine Negative (Negative); Blood,Urine Small (Negative); Color,Urine Light Yellow; Glucose,Urine (UA) Negative (Negative); Ketones,Urine Negative (Negative); Leukocyte Esterase,Urine Negative (Negative); Mucus,Urine Rare /hpf; Nitrite,Urine Negative (Negative); Protein,Urine Trace (Negative); RBC,Urine 6 /hpf (0-5); Specific Gravity,Urine 1.009 (1.001-1.035); Urobilinogen,Urine <2.0 mg/dL (<2.0)
[2018-04-15] MEDS ORDERED: POTASSIUM CHLORIDE ER 20 MEQ TAB.ER PO STA (07:03)
--- NOTE | 2018-04-15 07:26 | P.PN ---
Subjective Patient is seen in follow-up for renal transplant management. Patient received a donor renal allograft in 2004. He is maintained on Prograf and Myfortic for immunosuppression. He does have history of diastolic CHF and mild to moderate mitral regurgitation. Patient presented with right lower extremity cellulitis and is currently maintained on antibiotics. Admits to good urine output. Oral intake is good. Denies chest pain or shortness of breath. Vital signs are stable. General: The patient appeared well nourished and normally developed. HEENT: Head exam is unremarkable. Neck is without jugular venous distension. LUNGS: Lungs are clear to auscultation and percussion. Breath sounds decreased. HEART: Rate and Rhythm are regular. First and second heart sounds normal. No murmurs, rubs or gallops. ABDOMEN: Abdominal exam reveals normal bowel sounds. Non-tender and non- distended. No evidence of peritonitis. EXTREMITITES: Right lower extremity wrapped. No obvious drainage. Trace edema in the left lower extremity. Objective - Vital Signs Vital signs: Vital Signs Temp 97.8 F 04/15/18 03:34 Pulse 79 04/15/18 03:34 Resp 16 04/15/18 03:34 BP 111/72 04/15/18 03:34 Pulse Ox 96 04/15/18 03:34 Intake & Output 04/14/18 04/15/18 04/15/18 18:59 06:59 18:59 Intake Total 240 860 Output Total 2401 Balance 240 -1541 Weight 64.41 kg 62.4 kg Intake: IV 260 Invasive Line 1 10 Vancomycin 1,250 mg In 250 Sodium Chloride 0.9% 250 ml @ 125 mls/hr IVPB ONCE STA Rx#:[id number] Oral 240 600 Output: Urine 2400 Urine/Stool Mix 1 Other: Voiding Method Toilet # Voids 1 - Labs CBC & Chem 7: 04/14/18 08:55 04/15/18 02:55 Labs: Abnormal Lab Results - Last 24 Hours (Table) 04/14/18 04/14/18 04/14/18 Range/Units 08:55 08:55 08:55 RBC 4.18 L (4.30-5.90) m/uL Plt Count 132 L (150-450) k/uL Neutrophils # 8.3 H (1.3-7.7) k/uL Lymphocytes # 0.4 L (1.0-4.8) k/uL INR 1.2 H (<1.2) Potassium 2.7 L* (3.5-5.1) mmol/L Chloride 97 L (98-107) mmol/L Carbon Dioxide 34 H (22-30) mmol/L BUN 23 H (9-20) mg/dL Magnesium (1.6-2.3) mg/dL Total Bilirubin 1.9 H (0.2-1.3) mg/dL Troponin I (0.000-0.034) ng/mL Total Protein 5.2 L (6.3-8.2) g/dL Albumin 3.4 L (3.5-5.0) g/dL Urine Protein (Negative) Urine Blood (Negative) Urine RBC (0-5) /hpf Urine Mucus (None) /hpf 04/14/18 04/14/18 04/14/18 Range/Units 08:55 09:30 15:02 RBC (4.30-5.90) m/uL Plt Count (150-450) k/uL Neutrophils # (1.3-7.7) k/uL Lymphocytes # (1.0-4.8) k/uL INR (<1.2) Potassium (3.5-5.1) mmol/L Chloride (98-107) mmol/L Carbon Dioxide (22-30) mmol/L BUN (9-20) mg/dL Magnesium 1.2 L (1.6-2.3) mg/dL Total Bilirubin (0.2-1.3) mg/dL Troponin I 0.057 H* (0.000-0.034) ng/mL Total Protein (6.3-8.2) g/dL Albumin (3.5-5.0) g/dL Urine Protein Trace H (Negative) Urine Blood (Negative) Urine RBC (0-5) /hpf Urine Mucus (None) /hpf 04/14/18 04/15/18 04/15/18 Range/Units 21:01 02:55 02:55 RBC (4.30-5.90) m/uL Plt Count (150-450) k/uL Neutrophils # (1.3-7.7) k/uL Lymphocytes # (1.0-4.8) k/uL INR (<1.2) Potassium 3.2 L (3.5-5.1) mmol/L Chloride (98-107) mmol/L Carbon Dioxide (22-30) mmol/L BUN 27 H (9-20) mg/dL Magnesium (1.6-2.3) mg/dL Total Bilirubin (0.2-1.3) mg/dL Troponin I 0.048 H* 0.040 H* (0.000-0.034) ng/mL Total Protein (6.3-8.2) g/dL Albumin (3.5-5.0) g/dL Urine Protein (Negative) Urine Blood (Negative) Urine RBC (0-5) /hpf Urine Mucus (None) /hpf 04/15/18 Range/Units 03:45 RBC (4.30-5.90) m/uL Plt Count (150-450) k/uL Neutrophils # (1.3-7.7) k/uL Lymphocytes # (1.0-4.8) k/uL INR (<1.2) Potassium (3.5-5.1) mmol/L Chloride (98-107) mmol/L Carbon Dioxide (22-30) mmol/L BUN (9-20) mg/dL Magnesium (1.6-2.3) mg/dL Total Bilirubin (0.2-1.3) mg/dL Troponin I (0.000-0.034) ng/mL Total Protein (6.3-8.2) g/dL Albumin (3.5-5.0) g/dL Urine Protein Trace H (Negative) Urine Blood Small H (Negative) Urine RBC 6 H (0-5) /hpf Urine Mucus Rare H (None) /hpf Microbiology - Last 24 Hours (Table) 04/14/18 09:30 Urine Culture - Preliminary Urine,Voided Assessment and Plan Plan: Assessment: 1. Status post donor renal allograft in March 2005. 2. Chronic kidney disease stage II with baseline creatinine near 1. 3. Right lower extremity cellulitis. No evidence of deep vein thrombosis. Maintain on antibiotics. 4. Chronic diastolic CHF with mild to moderate mitral regurgitation. 5. Hypokalemia secondary to diuresis. Magnesium replete. Plan: Continue Lasix 20 mg orally twice daily. Continue Prograf and Myfortic. Encouraged oral intake. Replace potassium. 60 mEq today. Repeat electrolytes in the morning.
[2018-04-15] MEDS ORDERED: PANTOPRAZOLE 40 MG TABLET PO SCH (07:30)
[2018-04-15] MEDS: HYDROcodone/APAP 7.5-325MG 1 EACH TAB PO PRN (08:23)
[2018-04-15] MEDS: MYCOPHENOLATE SODIUM DR 180 MG TABLET.DR PO SCH (08:25)
[2018-04-15] MEDS: TACROLIMUS 1 MG CAP PO SCH (08:25)
[2018-04-15] MEDS: DILTIAZEM ORAL 30 MG TAB PO SCH (08:26)
[2018-04-15] MEDS: METOPROLOL TARTRATE 25 MG TAB PO SCH (08:26)
[2018-04-15] MEDS: FUROSEMIDE 20 MG TAB PO SCH (08:27)
[2018-04-15] MEDS ORDERED: ALLOPURINOL 100 MG TAB PO SCH (09:00)
[2018-04-15] MEDS ORDERED: CYANOCOBALAMIN 500 MCG TAB PO SCH (09:00)
[2018-04-15] MEDS ORDERED: LISINOPRIL 20 MG TAB PO SCH (09:00)
[2018-04-15] MEDS ORDERED: FERROUS SULFATE 325 MG TAB PO SCH (09:00)
[2018-04-15] MEDS ORDERED: FOLIC ACID 1 MG TAB PO SCH (09:00)
[2018-04-15] MEDS ORDERED: POTASSIUM CHLORIDE ER 20 MEQ TAB.ER PO SCH (09:00)
--- NOTE | 2018-04-15 09:00 | P.PN ---
Subjective Progress Note Date: 04/15/18 67-year-old male who presented to the emergency room with a chief complaint of pain and redness to his right lower extremity. The patient states he was out on his boat yesterday for the holiday and began having increased pain and soreness to his right lower extremity. He also reports increased erythema and drainage from his leg. With his symptoms not improving this morning , he presented to the emergency room for further evaluation. The patient was hospitalized in January 2018 for new onset atrial fibrillation. EKG performed in the emergency room showed atrial fibrillation with ST depression in V4-V6, which was not present on EKG in January 2018. The patient denies any chest pain, pressure, or shortness of breath. The patient states he saw Dr. Walker two days ago outpatient. Patient states he was not told he had any changes to his EKG at that time. Most recent echocardiogram available is from January 2018 which reveals ejection fraction of 55 -60%, mild aortic regurgitation, mild-to- moderate mitral regurgitation, trace tricuspid regurgitation, and borderline pulmonary hypertension. The patient has a history of chronic back pain and is scheduled for surgery at the end of this month for a herniated disc per patient. He reports difficulty ambulating and has been using crutches to get around. 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 The patient has a history of renal failure and was on peritoneal dialysis from 2003 to 2004 and underwent kidney transplant in 2004. He has a history of lung cancer with thoracotomy and left upper lobe lobectomy in August 2014. He has a history of tongue cancer and underwent radiation. He also underwent PEG tube placement secondary to malnutrition. Additional history includes anxiety and depression. He is a former cigarette smoker and quit in 2000. He reports increased alcohol use when he was diagnosed with cancer and reports 2-3 alcoholic drinks a night. Chest x-ray was negative for acute process. Venous doppler of right lower extremity was negative for a DVT. The patient was febrile upon admission at 100.4F. He is mildly tachycardic with a heart rate of 101-110. Laboratory data: WBC 9.2. Hemoglobin 13.9. Platelet count 132. Sodium 140. Potassium 2.7. BUN 23. Creatinine 1.05. GFR 75. Glucose 84. Urinalysis reveals trace proteinuria but otherwise unremarkable. The patient was admitted to the hospital under the care of Dr. Polk to the observation unit. Consultations were placed to cardiology. 04/15/2018 Patient seen and examined at the bedside. Patient states he is feeling better this morning and is hopeful to be discharged home today. Patients RLE remains wrapped in MEY wrap with gauze and silvadene. Patient reports less pain today. Troponins are slightly abnormal at 0.057, 0.048, and 0.040. Patient denies any chest pain or pressure or shortness of breath. Cardiology is on consult. Potassium is low at 3.2 and is currently being replaced. Magnesium is 2.2. Arterial US was ordered yesterday and results are currently pending. Spoke with US department who states Dr. Hand reads these reports and results can take up to a week to be completed. Objective - Vital Signs Vital signs: Vital Signs Temp 97.8 F 04/15/18 03:34 Pulse 79 04/15/18 08:00 Resp 16 04/15/18 08:00 BP 127/66 04/15/18 08:00 Pulse Ox 96 04/15/18 08:00 Intake & Output 04/14/18 04/15/18 04/15/18 18:59 06:59 18:59 Intake Total 240 860 118 Output Total 2401 Balance 240 -1541 118 Weight 64.41 kg 62.4 kg Intake: IV 260 Invasive Line 1 10 Vancomycin 1,250 mg In 250 Sodium Chloride 0.9% 250 ml @ 125 mls/hr IVPB ONCE STA Rx#:[id number] Oral 240 600 118 Output: Urine 2400 Urine/Stool Mix 1 Other: Voiding Method Toilet # Voids 1 - Exam GENERAL: This is a 67-year-old male in no apparent distress at the time of examination. Pleasant and cooperative. HEENT: Head is atraumatic, normocephalic. Sclerae anicteric. Conjunctivae are clear. Mucus membranes of the mouth are moist. Neck is supple. RESPIRATORY: Clear to ausculation. No wheezes, rales, or rhonchi. No use of accessory muscles. Patient maintaining oxygen saturation greater than 92%. No chest wall tenderness is noted on palpation or with deep breathing. CARDIOVASCULAR: Irregular rhythm. Telemetry reveals atrial fibrillation. S1 and S2 noted. Systolic murmur auscultated. No JVD noted. No S3 or S4 noted. GASTROINTESTINAL: No distention noted. Abdomen soft and round. Normal active bowel sounds auscultated x 4 quadrants. No pain or tenderness noted upon palpation. INTEGUMENTARY: RLE wrapped with MEY wrap. No cyanosis. No jaundice. NEUROLOGIC: Cranial nerves II-XII intact. PSYCHIATRIC: Awake, alert, and oriented X 3. Appropriate affect. Intact judgement and insight. - Labs CBC & Chem 7: 04/14/18 08:55 04/15/18 02:55 Labs: Abnormal Lab Results - Last 24 Hours (Table) 04/14/18 04/14/18 04/14/18 Range/Units 08:55 08:55 08:55 RBC 4.18 L (4.30-5.90) m/uL Plt Count 132 L (150-450) k/uL Neutrophils # 8.3 H (1.3-7.7) k/uL Lymphocytes # 0.4 L (1.0-4.8) k/uL INR 1.2 H (<1.2) Potassium 2.7 L* (3.5-5.1) mmol/L Chloride 97 L (98-107) mmol/L Carbon Dioxide 34 H (22-30) mmol/L BUN 23 H (9-20) mg/dL Magnesium (1.6-2.3) mg/dL Total Bilirubin 1.9 H (0.2-1.3) mg/dL Troponin I (0.000-0.034) ng/mL Total Protein 5.2 L (6.3-8.2) g/dL Albumin 3.4 L (3.5-5.0) g/dL Urine Protein (Negative) Urine Blood (Negative) Urine RBC (0-5) /hpf Urine Mucus (None) /hpf 04/14/18 04/14/18 04/14/18 Range/Units 08:55 09:30 15:02 RBC (4.30-5.90) m/uL Plt Count (150-450) k/uL Neutrophils # (1.3-7.7) k/uL Lymphocytes # (1.0-4.8) k/uL INR (<1.2) Potassium (3.5-5.1) mmol/L Chloride (98-107) mmol/L Carbon Dioxide (22-30) mmol/L BUN (9-20) mg/dL Magnesium 1.2 L (1.6-2.3) mg/dL Total Bilirubin (0.2-1.3) mg/dL Troponin I 0.057 H* (0.000-0.034) ng/mL Total Protein (6.3-8.2) g/dL Albumin (3.5-5.0) g/dL Urine Protein Trace H (Negative) Urine Blood (Negative) Urine RBC (0-5) /hpf Urine Mucus (None) /hpf 04/14/18 04/15/18 04/15/18 Range/Units 21:01 02:55 02:55 RBC (4.30-5.90) m/uL Plt Count (150-450) k/uL Neutrophils # (1.3-7.7) k/uL Lymphocytes # (1.0-4.8) k/uL INR (<1.2) Potassium 3.2 L (3.5-5.1) mmol/L Chloride (98-107) mmol/L Carbon Dioxide (22-30) mmol/L BUN 27 H (9-20) mg/dL Magnesium (1.6-2.3) mg/dL Total Bilirubin (0.2-1.3) mg/dL Troponin I 0.048 H* 0.040 H* (0.000-0.034) ng/mL Total Protein (6.3-8.2) g/dL Albumin (3.5-5.0) g/dL Urine Protein (Negative) Urine Blood (Negative) Urine RBC (0-5) /hpf Urine Mucus (None) /hpf 04/15/18 Range/Units 03:45 RBC (4.30-5.90) m/uL Plt Count (150-450) k/uL Neutrophils # (1.3-7.7) k/uL Lymphocytes # (1.0-4.8) k/uL INR (<1.2) Potassium (3.5-5.1) mmol/L Chloride (98-107) mmol/L Carbon Dioxide (22-30) mmol/L BUN (9-20) mg/dL Magnesium (1.6-2.3) mg/dL Total Bilirubin (0.2-1.3) mg/dL Troponin I (0.000-0.034) ng/mL Total Protein (6.3-8.2) g/dL Albumin (3.5-5.0) g/dL Urine Protein Trace H (Negative) Urine Blood Small H (Negative) Urine RBC 6 H (0-5) /hpf Urine Mucus Rare H (None) /hpf Microbiology - Last 24 Hours (Table) 04/14/18 09:30 Urine Culture - Preliminary Urine,Voided Assessment and Plan Plan: ASSESSMENT: Cellulitis of right lower extremity, present on admission Difficulty with ambulation, secondary to above and chronic back pain Hypokalemia, potassium 2.7 on admission Hypomagnesemia Chronic atrial fibrillation, on long-term anticoagulation with Eliquis Acute EKG changes, patient asymptomatic, cardiology consulted History of kidney transplant in 2004, on anti-rejection medication with Prograf and Myfortic Immunocompromised, secondary to above Chronic kidney disease, stage II History of lung cancer with left upper lobe lobectomy, 2013 History of tongue cancer History of PEG placement secondary to malnutrition, since removed Hypertension Chronic diastolic congestive heart failure, EF 55-60% Chronic back pain with chronic opioid use, patient reports surgery scheduled April 2018 due to herniated disc Generalized anxiety disorder Depression History of nicotine dependence, in remission, patient quit smoking in 2000 Daily alcohol use PLAN: Cardiology on consult. Await further recommendations and input Continue IV antibiotics Silvadene to RLE daily and wrap with gauze and MEY wrap to the knee Nephrology on consult. Appreciate recommendations and input Arterial US completed. Await results Replace potassium Home meds as appropriate Monitor labs GI prophylaxis: Protonix 40 mg PO Daily DVT prophylaxis: Eliquis 5mg PO BID Monitor vital signs and address as appropriate Discharge planning: Patient to return home when stable. Further recommendations pending patient's course Nurse practitioner note has been reviewed by physician. Signing provider agrees with the documented findings, assessment, and plan of care.
[2018-04-15] MEDS ORDERED: REGADENOSON 0.4 MG/5 ML SYRINGE IV ONE (09:09)
[2018-04-15] MEDS ORDERED: AMINOPHYLLINE 500 MG/20 ML VIAL IV PRN (09:09)
[2018-04-15] MEDS ORDERED: DOBUTamine DRIP for NUC MED 500 MG in DEXTROSE/WATER 1 250ML.BAG IV ONE (09:23)
--- NOTE | 2018-04-15 10:30 | CONS ---
CONSULTATION CHIEF COMPLAINT: Cellulitis of the right leg. Otoniel is a 67-year-old gentleman with history of chronic atrial fibrillation who presented to the hospital with right leg swelling and cellulitis. On his initial presentation, he had significant hypokalemia and the EKG showed extensive ST-T wave changes suggestive of subendocardial ischemia. The patient does not have any chest pain or difficulty in breathing. Troponins that were done came back elevated at 0.05, 0.04 and 0.04. Creatinine is normal. Given the abnormal EKG and the elevated troponin, we talked about doing a cardiac catheterization on him versus doing a stress test. The patient opted for stress test at this time and I am going to schedule him for a stress test this morning. If there is ischemia, we will ask Dr. Walker to do a catheterization. If not, he will be discharged home. PAST MEDICAL HISTORY: Significant for kidney transplant, hypertension, chronic atrial fibrillation. MEDICATIONS: Medications at home include Cardizem 30 t.i.d., Eliquis 5 b.i.d., Xanax, Vasotec 10 b.i.d., Lopressor 25 b.i.d., multivitamins, Lasix 20 four times a day, Prograf, Zyloprim, iron and [place]. ALLERGIES: No known drug allergies. FAMILY HISTORY: Negative for premature coronary artery disease. SOCIAL HISTORY: Negative for current smoking, EtOH abuse, or drug abuse. REVIEW OF SYSTEMS: HEENT is unremarkable. CARDIAC: As described above. RESPIRATORY: Negative. GI: Negative. GENITOURINARY: Negative. ALLERGY/IMMUNOLOGICAL: Negative. SKIN: Significant for cellulitis of the right leg. MUSCULOSKELETAL: Significant for right leg swelling. PSYCHOSOCIAL: Negative. ENDOCRINE: Negative. HEMATOLOGICAL: Negative. CONSTITUTIONAL: Negative. RENAL: Significant for end-stage renal disease, status post transplant. MUSCULOSKELETAL: Significant for chronic back pain. PHYSICAL EXAMINATION: On exam, comfortable at rest. Heart rate is 80 beats per minute. Blood pressure is 127/66. Respiratory rate is 18. Chest exam reveals good air entry bilaterally. Heart exam reveals first and second heart sounds, irregular rhythm. Systolic murmur at the left lower sternal border. Abdomen is soft. Examination of extremities reveals right leg edema and cellulitis. Peripheral pulses are diminished. LABS: Labs show that the potassium is 3.2. Tropes are elevated. Creatinine is normal. White cell count is 9.2. Hemoglobin is 13.9. ASSESSMENT: 1. Mild troponin elevation in a patient who does not have any cardiac symptoms of unclear clinical significance. 2. Cellulitis and swelling of the right leg. 3. Chronic atrial fibrillation. 4. Hypertension. 5. Status post kidney transplant. 6. Chronic back pain. PLAN: I will perform a stress test on him. If this is abnormal, Dr. Walker will do cardiac cath. If not, he will be discharged home. MMODL / IJN: [id number] /
[2018-04-15] MEDS ORDERED: MULTIVITAMINS, THERA 1 EACH TAB PO SCH (12:00)
[2018-04-15] MEDS: VANCOMYCIN 1,250 MG in SODIUM CHLORIDE 0.9% 250 ML IVPB SCH (12:26)
--- NOTE | 2018-04-15 12:47 | ECHOS ---
STRESS ECHOCARDIOGRAM DOBUTAMINE STRESS ECHO DATE OF SERVICE: 04/15/2018 INDICATIONS: Pre-op MEDICATIONS: BASELINE HEART RATE: 83 BASELINE BLOOD PRESSURE: 146/88 MAXIMUM HEART RATE: 141 MAXIMUM BLOOD PRESSURE: 171/89 85% MPHR: 132 100% MPHR: 153 METS: MAXIMUM STAGE REACHED: TOTAL EXERCISE TIME: CLINICAL INFORMATION: Baseline EKG revealed atrial fib with a controlled ventricular rate and poor R-wave progression over leads V1 to V3. With the dobutamine administration as per protocol, the heart rate went up progressively up to 141 beats per minute. There were isolated PVCs and EKG remained unremarkable with nonspecific ST-T changes. This is considered technically an inconclusive stress test with nonspecific ST-T changes to begin with and underlying atrial fibrillation. Frequent ventricular ectopy including triplets were noted with dobutamine administration, but patient did not have any significant symptoms. Baseline echo images revealed resting ejection fraction of 40% with global decrease in contractility. With dobutamine administration, progressively there was increase in contractility noted and the estimated ejection fraction at peak dose was about 55%. There was progressive increase in contractility noted, but the resting ejection fraction was low suggesting that there may be a nonischemic cardiomyopathy type picture. Clinical correlation suggested. FINAL IMPRESSION: 1. By EKG criteria, this is an inconclusive dobutamine stress test because of resting EKG changes. Ventricular ectopy with dobutamine was noted. Patient did not have angina. 2. There is no evidence to suggest ischemia on this dobutamine stress echo. There was progressive increase in contractility noted with dobutamine administration as per protocol. However, the resting ejection fraction is 40% suggesting that there may be nonischemic cardiomyopathy. Clinical correlation is suggested. MMODL / IJN: [id number] /
[2018-04-15 13:37] VITALS: BP 126/88; PULSE 97; TEMP 98
--- NOTE | 2018-04-20 12:35 | P.ARTDOP ---
Arterial Doppler LOWER EXTREMITY ARTERIAL DOPPLER: DATE OF SERVICE: 04/14/2018 Reason for study: Right leg ulcer. Doppler waveforms: Multiphasic bilaterally except at the digital level. Pulse volume recording: Only performed at the digital level which were severely blunted bilaterally. Pressure gradients: None noted. Ankle-brachial indices: Greater than 1 bilaterally. Toe pressures: [] on the right, [] on the left Impression: Normal study at the proximal foot and above. Flattened toe waveforms are either technical error or related to severe vasoconstriction. Distal occlusive disease and unlikely cause and study does not correlate with patient's symptoms..
--- NOTE | 2018-04-21 12:28 | P.DS ---
Providers Date of admission: 04/14/18 10:51 Expected date of discharge: 04/15/18 Attending physician: Zion Polk Consults: 04/14/18 10:50 Consult Physician Stat Consulting Provider: Jostin Riley Consult Reason/Comments: Acute EKG changes Do you want consulting provider notified?: Yes 04/14/18 11:11 Consult Physician Stat Consulting Provider: Sneha Gauthier Consult Reason/Comments: Status post kidney transplant Do you want consulting provider notified?: Yes Primary care physician: [facility] Course: 67-year-old male who presented to the emergency room with a chief complaint of pain and redness to his right lower extremity. The patient states he was out on his boat yesterday for the holiday and began having increased pain and soreness to his right lower extremity. He also reports increased erythema and drainage from his leg. With his symptoms not improving this morning , he presented to the emergency room for further evaluation. The patient was hospitalized in January 2018 for new onset atrial fibrillation. EKG performed in the emergency room showed atrial fibrillation with ST depression in V4-V6, which was not present on EKG in January 2018. The patient denies any chest pain, pressure, or shortness of breath. The patient states he saw Dr. Walker two days ago outpatient. Patient states he was not told he had any changes to his EKG at that time. Most recent echocardiogram available is from January 2018 which reveals ejection fraction of 55 -60%, mild aortic regurgitation, mild-to- moderate mitral regurgitation, trace tricuspid regurgitation, and borderline pulmonary hypertension. The patient has a history of chronic back pain and is scheduled for surgery at the end of this month for a herniated disc per patient. He reports difficulty ambulating and has been using crutches to get around. 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 The patient has a history of renal failure and was on peritoneal dialysis from 2003 to 2004 and underwent kidney transplant in 2004. He has a history of lung cancer with thoracotomy and left upper lobe lobectomy in August 2014. He has a history of tongue cancer and underwent radiation. He also underwent PEG tube placement secondary to malnutrition. Additional history includes anxiety and depression. He is a former cigarette smoker and quit in 2000. He reports increased alcohol use when he was diagnosed with cancer and reports 2-3 alcoholic drinks a night. Chest x-ray was negative for acute process. Venous doppler of right lower extremity was negative for a DVT. The patient was febrile upon admission at 100.4F. He is mildly tachycardic with a heart rate of 101-110. Laboratory data: WBC 9.2. Hemoglobin 13.9. Platelet count 132. Sodium 140. Potassium 2.7. BUN 23. Creatinine 1.05. GFR 75. Glucose 84. Urinalysis reveals trace proteinuria but otherwise unremarkable. The patient was admitted to the hospital under the care of Dr. Polk to the observation unit. Consultations were placed to cardiology. The patient is feeling better and states his pain has improved. RLE looks improved. Patient is using silvadene to RLE with gauze and MEY wrap. Arterial US was ordered and results are currently pending. Spoke with US department who states Dr. Hand reads these reports and results can take up to a week to be completed. Troponins are slightly abnormal at 0.057, 0.048, and 0.040. Patient underwent stress test which was negative for ischemia. EG was noted to be 40% which may be related to nonischemic cardiomyopathy. Discharge Diagnosis Cellulitis of right lower extremity, present on admission, improving Difficulty with ambulation, secondary to above and chronic back pain Hypokalemia, improved Hypomagnesemia, improved Chronic atrial fibrillation, on long-term anticoagulation with Eliquis Acute EKG changes, patient asymptomatic, cardiology consulted History of kidney transplant in 2004, on anti-rejection medication with Prograf and Myfortic Immunocompromised, secondary to above Chronic kidney disease, stage II History of lung cancer with left upper lobe lobectomy, 2013 History of tongue cancer History of PEG placement secondary to malnutrition, since removed Hypertension Chronic diastolic congestive heart failure, EF 55-60% Chronic back pain with chronic opioid use, patient reports surgery scheduled April 2018 due to herniated disc Generalized anxiety disorder Depression History of nicotine dependence, in remission, patient quit smoking in 2000 Daily alcohol use Nurse practitioner note has been reviewed by physician. Signing provider agrees with the documented findings, assessment, and plan of care. Patient Condition at Discharge: Good Plan - Discharge Summary Discharge Rx Participant: No New Discharge Prescriptions: New Furosemide [Lasix] 20 mg PO BID@0900,1600 #60 tab Levofloxacin [Levaquin] 500 mg PO DAILY 7 Days #7 tab SILVER sulfADIAZINE CREAM [Silvadene Cream] 1 applic TOPICAL DAILY #1 applic Continue Tacrolimus [Prograf] 2 mg PO BID ALPRAZolam [Xanax] 0.5 mg PO TID PRN PRN Reason: Anxiety Multivitamins, Thera [Multivitamin (formulary)] 1 tab PO DAILY Ferrous Sulfate [Iron (65 MG Elemental)] 325 mg PO DAILY Cyanocobalamin (Vitamin B-12) [Vitamin B-12] 1,000 mcg PO DAILY Mycophenolate Sodium [Mycophenolic Acid] 360 mg PO BID Metoprolol Tartrate [Lopressor] 25 mg PO BID HYDROcodone/APAP 7.5-325MG [[place] 7.5-325] 1 tab PO QID Enalapril [Vasotec] 10 mg PO BID Folic Acid(Unknown Dose) 1 tab PO DAILY Apixaban [Eliquis] 5 mg PO BID@0600,1800 #60 tab Diltiazem Oral [Cardizem*] 30 mg PO TID #90 tab Allopurinol [Zyloprim] 100 mg PO DAILY Discontinued Furosemide [Lasix] 20 mg PO QID Discharge Medication List Tacrolimus [Prograf] 2 mg PO BID 11/15/14 [History] ALPRAZolam [Xanax] 0.5 mg PO TID PRN 01/27/18 [History] Cyanocobalamin (Vitamin B-12) [Vitamin B-12] 1,000 mcg PO DAILY 01/27/18 [ History] Enalapril [Vasotec] 10 mg PO BID 01/27/18 [History] Ferrous Sulfate [Iron (65 MG Elemental)] 325 mg PO DAILY 01/27/18 [History] Folic Acid(Unknown Dose) 1 tab PO DAILY 01/27/18 [History] HYDROcodone/APAP 7.5-325MG [[place] 7.5-325] 1 tab PO QID 01/27/18 [History] Metoprolol Tartrate [Lopressor] 25 mg PO BID 01/27/18 [History] Multivitamins, Thera [Multivitamin (formulary)] 1 tab PO DAILY 01/27/18 [History ] Mycophenolate Sodium [Mycophenolic Acid] 360 mg PO BID 01/27/18 [History] Apixaban [Eliquis] 5 mg PO BID@0600,1800 #60 tab 01/30/18 [Rx] Diltiazem Oral [Cardizem*] 30 mg PO TID #90 tab 01/30/18 [Rx] Allopurinol [Zyloprim] 100 mg PO DAILY 04/14/18 [History] Furosemide [Lasix] 20 mg PO BID@0900,1600 #60 tab 04/15/18 [Rx] Levofloxacin [Levaquin] 500 mg PO DAILY 7 Days #7 tab 04/15/18 [Rx] SILVER sulfADIAZINE CREAM [Silvadene Cream] 1 applic TOPICAL DAILY #1 applic 03/28 [Rx] Follow up Appointment(s)/Referral(s): Carlos Enrique Walker MD [STAFF PHYSICIAN] - 1 Week Pancho Casper Jr, DO [Primary Care Provider] - 04/18/18 (please schedule appt for patient to be seen on Wednesday) Activity/Diet/Wound Care/Special Instructions: Continue to wrap legs with MEY wrap or wear compression stockings. If using the MEY wrap, apply silvadene to right leg and then wrap with gauze and then apply MEY wrap up the knee.
== END 2018-04-15 15:38 | disposition home or self-care (01) ==
LOC: EC 08:01 → 6SEL 10:51
PROVIDERS: ADMIT Family Medicine; ATTEND Family Medicine
DX: L03.115 Cellulitis of right lower limb (principal); I48.2 Chronic atrial fibrillation; E87.6 Hypokalemia; E83.42 Hypomagnesemia; G89.29 Other chronic pain; R00.0 Tachycardia, unspecified; R80.9 Proteinuria, unspecified; R94.31 Abnormal electrocardiogram [ECG] [EKG]; R77.8 Other specified abnormalities of plasma proteins; M54.9 Dorsalgia, unspecified; I13.0 Hypertensive heart and chronic kidney disease with heart failure and stage 1 through stage 4 chronic kidney disease, or unspecified chronic kidney disease; N18.2 Chronic kidney disease, stage 2 (mild); I50.32 Chronic diastolic (congestive) heart failure; I34.0 Nonrheumatic mitral (valve) insufficiency; Z94.0 Kidney transplant status; F41.1 Generalized anxiety disorder; F32.9 Major depressive disorder, single episode, unspecified; M48.00 Spinal stenosis, site unspecified; H91.93 Unspecified hearing loss, bilateral; Z85.118 Personal history of other malignant neoplasm of bronchus and lung; Z85.810 Personal history of malignant neoplasm of tongue; Z92.3 Personal history of irradiation; Z87.891 Personal history of nicotine dependence; Z92.21 Personal history of antineoplastic chemotherapy; Z82.49 Family history of ischemic heart disease and other diseases of the circulatory system; Z84.1 Family history of disorders of kidney and ureter; Z79.899 Other long term (current) drug therapy; Z79.891 Long term (current) use of opiate analgesic; Z79.01 Long term (current) use of anticoagulants; T50.2X5A Adverse effect of carbonic-anhydrase inhibitors, benzothiadiazides and other diuretics, initial encounter
CPT/HCPCS: 99285 ×2; 96375 ×3; 96365 ×2; 96366 ×7; 96368 ×2; 36415; 93005; 93351; 80053; 80048; 83605; 83735 ×2; 84132; 84484 ×2; 85025; 85610; 85730; 81003; 81001; 87040; 87086; 71045; 93971; 93922; G0378 ×2; J3370 ×2; J1250; J7507 ×2; J0696; J2270; J3475; J7518 ×2; J2785

== ENCOUNTER 2018-09-01 20:11 | Inpatient (IN) | payer MEDICARE, OTHER ==
--- NOTE | 2018-09-01 20:26 | ED ---
General Adult HPI - General Source: patient, EMS Mode of arrival: EMS Limitations: no limitations <Mendoza Laura - Last Filed: 09/01/18 21:10> <Ernst Waldrop - Last Filed: 09/01/18 23:06> - General Chief complaint: Abdominal Pain Stated complaint: Poss Sepsis - History of Present Illness Initial comments: Dictation was produced using [employer] dictation software. please excuse any grammatical, word or spelling errors. Chief Complaint: 68-year-old male with past medical history of kidney disease status post renal transplant, hypertension, presents with fever, productive cough and flank pain. History of Present Illness: He is a 68-year-old male who presents to us with chief complaint of flank pain and fever. Patient is a donor renal allograft in March 2005. Patient is on immunosuppression medications. Patient allegedly had his transplant performed at [facility]. Patient states that over the past couple days patient's been having active cough,, fever, malaise patient. Patient's sputum has been blood-tinged. She also complains of some pain on the right side. The ROS documented in this emergency department record has been reviewed and confirmed by me. Those systems with pertinent positive or negative responses have been documented in the HPI. All other systems are other negative and/or noncontributory. (Mendoza Laura) - Related Data Home Medications Medication Instructions Recorded Confirmed Tacrolimus [Prograf] 2 mg PO BID 11/15/14 09/01/18 ALPRAZolam [Xanax] 0.5 mg PO TID PRN 01/27/18 09/01/18 Cyanocobalamin (Vitamin B-12) 1,000 mcg PO DAILY 01/27/18 09/01/18 [Vitamin B-12] Metoprolol Tartrate [Lopressor] 25 mg PO BID 01/27/18 09/01/18 Multivitamins, Thera [Multivitamin 1 tab PO DAILY 01/27/18 09/01/18 (formulary)] Mycophenolate Sodium [Mycophenolic 360 mg PO BID 01/27/18 09/01/18 Acid] Allopurinol [Zyloprim] 100 mg PO DAILY 04/14/18 09/01/18 Docusate [Colace] 100 mg PO DAILY 09/01/18 09/01/18 Famotidine [Pepcid] 20 mg PO DAILY 09/01/18 09/01/18 Folic Acid 1 mg PO DAILY 09/01/18 09/01/18 Ipratropium-Albuterol Nebulize 3 ml INHALATION RT-QID 09/01/18 09/01/18 [Duoneb 0.5 mg-3 mg/3 ml Soln] LORazepam [Ativan] 0.5 mg PO HS PRN 09/01/18 09/01/18 LORazepam [Ativan] 1 mg PO Q8H 09/01/18 09/01/18 Thiamine [Vitamin B-1] 100 mg PO DAILY 09/01/18 09/01/18 predniSONE 1 mg PO DAILY 09/01/18 09/01/18 Previous Rx's Medication Instructions Recorded Apixaban [Eliquis] 5 mg PO BID@0600,1800 #60 tab 01/30/18 Diltiazem Oral [Cardizem*] 30 mg PO TID #90 tab 01/30/18 Allergies Allergy/AdvReac Type Severity Reaction Status Date / Time No Known Allergies Allergy Verified 09/01/18 20:39 Review of Systems ROS Other: All systems not noted in ROS Statement are negative. <Mendoza Laura - Last Filed: 09/01/18 21:10> ROS Other: All systems not noted in ROS Statement are negative. <Ernst Waldrop - Last Filed: 09/01/18 23:06> ROS Statement: Those systems with pertinent positive or pertinent negative responses have been documented in the HPI. Past Medical History Past Medical History: Hearing Disorder / Deafness, Hypertension, Renal Disease, Skin Disorder Additional Past Medical History / Comment(s): HX OF RENAL FAILURE, ON PERITONEAL DIALYSIS [id number]; HAD RENAL TRANSPLANT 2004; WEARS HEARING AIDE BILATERALLY; HX OF RENAL DISEASE PRIOR TO TRANSPLANT; MILD PSORIASIS ARMS, LEGS AND BACK. SICNE CHEMO THE PSORIAIS HAS CLEARED History of Any Multi-Drug Resistant Organisms: None Reported Past Surgical History: Appendectomy, Joint Replacement, Tonsillectomy Additional Past Surgical History / Comment(s): CHEMO AND RADIATION FOR TONGUE. PEG TUBE PLACED 1 YR AGO. HAD LEFT THORACOTOMY WITH UPPER LOBECTOMY 2013. BILATERAL HIP REPLACEMENT Past Anesthesia/Blood Transfusion Reactions: No Reported Reaction Past Psychological History: Anxiety, Depression Smoking Status: Former smoker Past Alcohol Use History: Occasional Past Drug Use History: None Reported - Past Family History Father Family Medical History: Coronary Artery Disease (CAD), Renal Disease Additional Family Medical History / Comment(s): Father at the age of 80yrs. Mother Family Medical History: Coronary Artery Disease (CAD) Additional Family Medical History / Comment(s): Mother at the age of 70yrs. <Mendoza Laura - Last Filed: 09/01/18 21:10> General Exam Limitations: no limitations <Mendoza Laura - Last Filed: 09/01/18 21:10> <Ernst Waldrop - Last Filed: 09/01/18 23:06> - General Exam Comments Initial Comments: PHYSICAL EXAM: General Impression: Alert and oriented x3, not in acute distress HEENT: Normocephalic atraumatic, extra-ocular movements intact, pupils equal and reactive to light bilaterally, mucous membranes moist, dried blood at the oral pharynx Cardiovascular: Heart regular rate and rhythm, S1&S2 audible, no murmurs, rubs or gallops Chest: Mild wheezing diffusely Abdomen: Bowel sounds present, abdomen soft, non-tender, non-distended, no organomegaly Musculoskeletal: Pulses present and equal in all extremities, no peripheral edema Motor: Moves all shows grossly Neurological: CN II-XII grossly intact, no focal motor or sensory deficits noted Skin: Intact with no visualized rashes Psych: Normal affect and mood (Mendoza Laura) Vital Signs 09/01/18 09/01/18 09/01/18 20:15 20:19 21:00 Temperature 98.1 F Pulse Rate 105 H 86 Respiratory 28 H 32 H 23 Rate Blood Pressure 143/94 143/94 145/97 O2 Sat by Pulse 97 Oximetry 09/01/18 09/01/18 22:00 22:25 Temperature 97.9 F Pulse Rate 104 H Respiratory 21 Rate Blood Pressure 129/87 O2 Sat by Pulse 85 L Oximetry Medical Decision Making <Mendoza Laura - Last Filed: 09/01/18 21:10> - Lab Data Result diagrams: 09/01/18 20:56 09/01/18 20:56 <Ernst Waldrop - Last Filed: 11/22/18 23:06> - Medical Decision Making 68-year-old male past medical history of renal transplant on immunosuppressive medications presents with chief complaint of fever, malaise, right-sided flank pain and productive cough. Given history of immunosuppression there is concern that patient is having sepsis. Vital signs upon arrival shows heart rate of 105, respiratory rate 20, pulse vital signs within normal limits. Patient's EKG shows atrial fibrillation. Patient is on diltiazem and pelvic rest. Work was obtained. Patient to be evaluated for sepsis. There is strong clinical suspicion that patient has pneumonia. Patient labs ordered. Blood cultures and urine cultures were obtained. Patient given vancomycin and cefepime. She is sent out to oncoming physician for follow-up of workup. EKG interpretation: Ventricular rate 79, H fibrillation, QS 80, QTc 433. No MA prolongation, no QTC prolongation, no ST or T-wave changes noted. Overall, this EKG is unremarkable (Mendoza Laura) - Lab Data Lab Results 09/01/18 09/01/18 09/01/18 Range/Units 20:26 20:56 20:56 WBC 10.8 H (3.8-10.6) k/uL RBC 3.72 L (4.30-5.90) m/uL Hgb 9.0 L (13.0-17.5) gm/dL Hct 29.7 L (39.0-53.0) % MCV 79.8 L (80.0-100.0) fL MCH 24.1 L (25.0-35.0) pg MCHC 30.2 L (31.0-37.0) g/dL RDW 17.0 H (11.5-15.5) % Plt Count 286 (150-450) k/uL Neutrophils % 92 % Lymphocytes % 2 % Monocytes % 4 % Eosinophils % 1 % Basophils % 0 % Neutrophils # 9.9 H (1.3-7.7) k/uL Lymphocytes # 0.3 L (1.0-4.8) k/uL Monocytes # 0.4 (0-1.0) k/uL Eosinophils # 0.1 (0-0.7) k/uL Basophils # 0.0 (0-0.2) k/uL Hypochromasia Marked Anisocytosis Slight Microcytosis Slight PT (9.0-12.0) sec INR (<1.2) APTT (22.0-30.0) sec Sodium 133 L (137-145) mmol/L Potassium 5.1 (3.5-5.1) mmol/L Chloride 98 (98-107) mmol/L Carbon Dioxide 24 (22-30) mmol/L Anion Gap 11 mmol/L BUN 37 H (9-20) mg/dL Creatinine 0.70 (0.66-1.25) mg/dL Est GFR (CKD-EPI)AfAm >90 (>60 ml/min/1.73 sqM) Est GFR (CKD-EPI)NonAf >90 (>60 ml/min/1.73 sqM) Glucose 267 H (74-99) mg/dL POC Glucose (mg/dL) 304 H (75-99) mg/dL POC Glu Central Supply Nurse ID Massiel Beck Plasma Lactic Acid Emre (0.7-2.0) mmol/L Calcium 8.7 (8.4-10.2) mg/dL Total Bilirubin 0.4 (0.2-1.3) mg/dL AST 23 (17-59) U/L ALT 48 (21-72) U/L Alkaline Phosphatase 69 (38-126) U/L Total Protein 5.5 L (6.3-8.2) g/dL Albumin 3.0 L (3.5-5.0) g/dL Lipase (23-300) U/L Urine Color Urine Appearance (Clear) Urine pH (5.0-8.0) Ur Specific [place] (1.001-1.035) Urine Protein (Negative) Urine Glucose (UA) (Negative) Urine Ketones (Negative) Urine Blood (Negative) Urine Nitrite (Negative) Urine Bilirubin (Negative) Urine Urobilinogen (<2.0) mg/dL Ur Leukocyte Esterase (Negative) 09/01/18 09/01/18 09/01/18 Range/Units 20:56 20:56 21:07 WBC (3.8-10.6) k/uL RBC (4.30-5.90) m/uL Hgb (13.0-17.5) gm/dL Hct (39.0-53.0) % MCV (80.0-100.0) fL MCH (25.0-35.0) pg MCHC (31.0-37.0) g/dL RDW (11.5-15.5) % Plt Count (150-450) k/uL Neutrophils % % Lymphocytes % % Monocytes % % Eosinophils % % Basophils % % Neutrophils # (1.3-7.7) k/uL Lymphocytes # (1.0-4.8) k/uL Monocytes # (0-1.0) k/uL Eosinophils # (0-0.7) k/uL Basophils # (0-0.2) k/uL Hypochromasia Anisocytosis Microcytosis PT 10.8 (9.0-12.0) sec INR 1.1 (<1.2) APTT 25.5 (22.0-30.0) sec Sodium (137-145) mmol/L Potassium (3.5-5.1) mmol/L Chloride (98-107) mmol/L Carbon Dioxide (22-30) mmol/L Anion Gap mmol/L BUN (9-20) mg/dL Creatinine (0.66-1.25) mg/dL Est GFR (CKD-EPI)AfAm (>60 ml/min/1.73 sqM) Est GFR (CKD-EPI)NonAf (>60 ml/min/1.73 sqM) Glucose (74-99) mg/dL POC Glucose (mg/dL) (75-99) mg/dL POC Glu Central Supply Nurse ID Plasma Lactic Acid Emre 2.0 (0.7-2.0) mmol/L Calcium (8.4-10.2) mg/dL Total Bilirubin (0.2-1.3) mg/dL AST (17-59) U/L ALT (21-72) U/L Alkaline Phosphatase (38-126) U/L Total Protein (6.3-8.2) g/dL Albumin (3.5-5.0) g/dL Lipase 78 (23-300) U/L Urine Color Urine Appearance (Clear) Urine pH (5.0-8.0) Ur Specific [place] (1.001-1.035) Urine Protein (Negative) Urine Glucose (UA) (Negative) Urine Ketones (Negative) Urine Blood (Negative) Urine Nitrite (Negative) Urine Bilirubin (Negative) Urine Urobilinogen (<2.0) mg/dL Ur Leukocyte Esterase (Negative) 11/22/18 Range/Units 22:30 WBC (3.8-10.6) k/uL RBC (4.30-5.90) m/uL Hgb (13.0-17.5) gm/dL Hct (39.0-53.0) % MCV (80.0-100.0) fL MCH (25.0-35.0) pg MCHC (31.0-37.0) g/dL RDW (11.5-15.5) % Plt Count (150-450) k/uL Neutrophils % % Lymphocytes % % Monocytes % % Eosinophils % % Basophils % % Neutrophils # (1.3-7.7) k/uL Lymphocytes # (1.0-4.8) k/uL Monocytes # (0-1.0) k/uL Eosinophils # (0-0.7) k/uL Basophils # (0-0.2) k/uL Hypochromasia Anisocytosis Microcytosis PT (9.0-12.0) sec INR (<1.2) APTT (22.0-30.0) sec Sodium (137-145) mmol/L Potassium (3.5-5.1) mmol/L Chloride (98-107) mmol/L Carbon Dioxide (22-30) mmol/L Anion Gap mmol/L BUN (9-20) mg/dL Creatinine (0.66-1.25) mg/dL Est GFR (CKD-EPI)AfAm (>60 ml/min/1.73 sqM) Est GFR (CKD-EPI)NonAf (>60 ml/min/1.73 sqM) Glucose (74-99) mg/dL POC Glucose (mg/dL) (75-99) mg/dL POC Glu Central Supply Nurse ID Plasma Lactic Acid Emre (0.7-2.0) mmol/L Calcium (8.4-10.2) mg/dL Total Bilirubin (0.2-1.3) mg/dL AST (17-59) U/L ALT (21-72) U/L Alkaline Phosphatase (38-126) U/L Total Protein (6.3-8.2) g/dL Albumin (3.5-5.0) g/dL Lipase (23-300) U/L Urine Color Yellow Urine Appearance Clear (Clear) Urine pH 6.0 (5.0-8.0) Ur Specific [place] 1.012 (1.001-1.035) Urine Protein Trace H (Negative) Urine Glucose (UA) Negative (Negative) Urine Ketones Negative (Negative) Urine Blood Negative (Negative) Urine Nitrite Negative (Negative) Urine Bilirubin Negative (Negative) Urine Urobilinogen <2.0 (<2.0) mg/dL Ur Leukocyte Esterase Negative (Negative) Disposition <Mendoza Laura - Last Filed: 09/01/18 21:10> <Ernst Waldrop - Last Filed: 09/01/18 23:06> Clinical Impression: Pneumonia, Hyperglycemia Disposition: ADMITTED IP TO THIS HOSP Condition: Serious Referrals: Pancho Casper Jr, [Primary Care Provider] - 1-2 days
[2018-09-01] MEDS: SODIUM CHLORIDE 0.9% 500 ML 500 ML IV SCH ×2 (20:57→22:17)
[2018-09-01 21:02] LABS: Glucose,Whole Blood 304 mg/dL (75-99)
[2018-09-01] MEDS ORDERED: CEFEPIME 2 GM in SODIUM CHLORIDE 0.9% 50 ML IVPB STA (21:09)
[2018-09-01] MEDS ORDERED: AZITHROMYCIN 500 MG in DEXTROSE 5% IN WATER 250 ML IVPB STA ×2 (21:09)
[2018-09-01] MEDS ORDERED: VANCOMYCIN 1,000 MG in SODIUM CHLORIDE 0.9% 250 ML IVPB STA (21:09)
--- NOTE | 2018-09-01 21:16 | XR ---
EXAMINATION TYPE: XR chest 2V DATE OF EXAM: 09/01/2018 COMPARISON: 04/14/2018 HISTORY: Fever and flank pain TECHNIQUE: Frontal and lateral views of the chest are obtained. FINDINGS: There are extensive bilateral airspace pulmonary infiltrates. This is worse on the right s gustavo. There is no gross heart failure. Heart size is normal. There is slight blunting of the costophre olga lidia angles. There are chest leads. Bony thorax is intact. IMPRESSION: New extensive bilateral pulmonary infiltrates consistent with pneumonia. No heart failur e. Small pleural effusions appear new.
[2018-09-01 21:21] LABS: ALT 48 U/L (21-72); AST 23 U/L (17-59); Alkaline Phosphatase 69 U/L (38-126); Anion Gap 11 mmol/L; Blood Urea Nitrogen 37 mg/dL (9-20); Calcium 8.7 mg/dL (8.4-10.2); Carbon Dioxide 24 mmol/L (22-30); Chloride 98 mmol/L (98-107); Glucose 267 mg/dL (74-99); Potassium 5.1 mmol/L (3.5-5.1); Sodium 133 mmol/L (137-145); Total Bilirubin 0.4 mg/dL (0.2-1.3); Total Protein 5.5 g/dL (6.3-8.2)
[2018-09-01 21:23] LABS: Anisocytosis Slight; Basophils % (A) 0 %; Eosinophils # (A) 0.1 k/uL (0-0.7); Eosinophils % (A) 1 %; HCT 29.7 % (39.0-53.0); Hypochromasia Marked; Lymphocytes # (A) 0.3 k/uL (1.0-4.8); Lymphocytes % (A) 2 %; MCH 24.1 pg (25.0-35.0); MCHC 30.2 g/dL (31.0-37.0); MCV 79.8 fL (80.0-100.0); Mean Platelet Volume 6.6; Microcytosis Slight; Monocytes # (A) 0.4 k/uL (0-1.0); Monocytes % (A) 4 %; Neutrophils # (A) 9.9 k/uL (1.3-7.7); Neutrophils % (A) 92 %; Platelet Count 286 k/uL (150-450); RBC 3.72 m/uL (4.30-5.90); WBC 10.8 k/uL (3.8-10.6)
[2018-09-01 21:24] LABS: INR 1.1 (<1.2); Partial Thromboplastin Time 25.5 sec (22.0-30.0); Prothrombin Time 10.8 sec (9.0-12.0)
[2018-09-01] MEDS ORDERED: MORPHINE SULFATE 4 MG/ML SYRINGE IV STA (22:09)
[2018-09-01 22:35] LABS: Appearance,Urine Clear (Clear); Bilirubin,Urine Negative (Negative); Blood,Urine Negative (Negative); Color,Urine Yellow; Glucose,Urine (UA) Negative (Negative); Ketones,Urine Negative (Negative); Leukocyte Esterase,Urine Negative (Negative); Nitrite,Urine Negative (Negative); Protein,Urine Trace (Negative); Specific Gravity,Urine 1.012 (1.001-1.035); Urobilinogen,Urine <2.0 mg/dL (<2.0)
[2018-09-01] MEDS ORDERED: PNEUMONIA PROTOCOL UTILIZED 1 EACH MISC PO PRN (22:57)
[2018-09-01] MEDS ORDERED: ALBUTEROL NEBULIZED 2.5 MG/3 ML INHALATION PRN (22:57)
[2018-09-01] MEDS ORDERED: VANCOMYCIN IV PER PHARMACY 1 EACH MISC MISCELLANE PRN (23:02)
[2018-09-01] MEDS ORDERED: LEVOFLOXACIN 750MG-D5W PMX 750 MG in DEXTROSE/WATER 1 150ML.BAG IVPB STA (23:06)
[2018-09-02] MEDS ORDERED: PIPERACILLIN-TAZOBACTAM 3.375 GM in SODIUM CHLORIDE 0.9% 100 ML IVPB SCH ×2
[2018-09-02] MEDS ORDERED: METOPROLOL TARTRATE 25 MG TAB PO STA (00:31)
[2018-09-02] MEDS: SODIUM CHLORIDE 0.9% 1,000 ML IV SCH ×2 (03:34→09:25)
[2018-09-02] MEDS: LORazepam 1 MG TAB PO SCH ×4 (04:42→21:40)
[2018-09-02] MEDS: CEFEPIME 2 GM in SODIUM CHLORIDE 0.9% 50 ML IVPB SCH ×2 (05:24→15:12)
[2018-09-02] MEDS ORDERED: VANCOMYCIN 1,500 MG in SODIUM CHLORIDE 0.9% 250 ML IVPB SCH (06:00)
[2018-09-02] MEDS: APIXABAN 5 MG TAB PO SCH ×2 (06:17→18:18)
[2018-09-02 06:35] LABS: Glucose,Whole Blood 102 mg/dL (75-99)
[2018-09-02] MEDS: INSULIN ASPART 100 UNIT/ML 1 ML 10 ML VIAL SQ SCH ×4 (06:36→22:13)
[2018-09-02] MEDS: MYCOPHENOLATE SODIUM 360 MG PO SCH ×2 (08:49→21:37)
[2018-09-02] MEDS ORDERED: TACROLIMUS 1 MG CAP PO SCH (09:00)
--- NOTE | 2018-09-02 09:01 | XR ---
EXAMINATION TYPE: XR chest 2V DATE OF EXAM: 09/02/2018 COMPARISON: Prior chest x-ray 09/01/2018 HISTORY: Pneumonia and shortness of breath TECHNIQUE: Frontal and lateral views of the chest are obtained. FINDINGS: Pleural-parenchymal changes are similar to prior exam. No pneumothorax. Heart size is stab le. IMPRESSION: Correlate for pneumonia, congestive heart failure not excluded. Follow-up to resolution.
[2018-09-02] MEDS: MULTIVITAMINS, THERA 1 EACH TAB PO SCH (09:24)
[2018-09-02] MEDS: FAMOTIDINE 20 MG TAB PO SCH (09:24)
[2018-09-02] MEDS: DOCUSATE 100 MG CAP PO SCH (09:24)
[2018-09-02] MEDS: FOLIC ACID 1 MG TAB PO SCH (09:25)
[2018-09-02] MEDS: THIAMINE 100 MG TAB PO SCH (09:25)
[2018-09-02] MEDS: METOPROLOL TARTRATE 25 MG TAB PO SCH ×2 (09:25→21:40)
[2018-09-02] MEDS: DILTIAZEM ORAL 30 MG TAB PO SCH ×3 (09:25→21:41)
[2018-09-02] MEDS: ALLOPURINOL 100 MG TAB PO SCH (09:25)
[2018-09-02] MEDS: IPRATROPIUM-ALBUTEROL 3 ML NEB INHALATION SCH ×3 (11:39→21:10)
[2018-09-02 11:52] LABS: Glucose,Whole Blood 90 mg/dL (75-99)
[2018-09-02] MEDS: predniSONE 1 MG TAB PO SCH (12:37)
--- NOTE | 2018-09-02 13:11 | P.HPIM ---
History of Present Illness H&P Date: 09/02/18 Chief Complaint: Cough and shortness of breath This 68-year-old white male although the practice. 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 He is medically debilitated after back surgery. He has a history of atrial fibrillation on anticoagulation and PEG tube feedings due to aphasia. Apparently for the past several days he's been having increasing cough and shortness of breath. His caregiver at home and call our office notifying us he been eating. He has a history of kidney transplant 2004 is on immunosuppression. 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 Is currently on prednisone and Prograf for immunosuppression or his kidney transplant. Nursing staff report that he had aspirated while they're trying to give him his meds and feed him. He is currently nothing by mouth with tube feeds only at this time. Nursing staff also reported hemoptysis with his coughing. He recently had lumbar back surgery in the summer of 2017. He reports he still is only able to ambulate with a walker due to pain. He was in [facility] up until 2 weeks ago. Review of Systems All systems: negative Past Medical History Past Medical History: Atrial Fibrillation, Heart Failure (Diastolic), Hearing Disorder / Deafness, Hypertension, Renal Disease, Skin Disorder Additional Past Medical History / Comment(s): HX OF RENAL FAILURE, ON PERITONEAL DIALYSIS [id number]; HAD RENAL TRANSPLANT 2004; WEARS HEARING AIDE BILATERALLY; HX OF RENAL DISEASE PRIOR TO TRANSPLANT; MILD PSORIASIS ARMS, LEGS AND BACK. SICNE CHEMO THE PSORIAIS HAS CLEARED History of Any Multi-Drug Resistant Organisms: None Reported Past Surgical History: Appendectomy, Joint Replacement, Tonsillectomy Additional Past Surgical History / Comment(s): CHEMO AND RADIATION FOR TONGUE. PEG TUBE PLACED 1 YR AGO. HAD LEFT THORACOTOMY WITH UPPER LOBECTOMY 2013. BILATERAL HIP REPLACEMENT Past Anesthesia/Blood Transfusion Reactions: No Reported Reaction Past Psychological History: Anxiety, Depression Additional Psychological History / Comment(s): WHILE GOING THROUGH THE CHEMO AND RADIATION HE HAS EXPEREINCED ANXIETY AND DEPRESSION. PT RESIDES WITH HIS SPOUSE. 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 HIS PLACE OF EMPLOYMENT IS [employer]. HE HAS EXERCISED ALL OF HIS LIFE-RUNNING AND NOW ELIPTICAL. HE RESIDES WITH HIS SPOUSE. THEY HAVE A DOG. Smoking Status: Former smoker Past Alcohol Use History: Occasional Additional Past Alcohol Use History / Comment(s): Pt started smoking in 1968 and quit in 2000. He drank heavily then quit for 12 years, resumed drinking with cancer diagnosis and drinks 2-3 martinis a night. Past Drug Use History: None Reported Additional Drug Use History / Comment(s): Pt states he uses norco, about 4 times a day and feels he is probable dependent on it. He takes it as prescribed but states he feels "funny" if he goes without it. - Past Family History Father Family Medical History: Coronary Artery Disease (CAD), Renal Disease Additional Family Medical History / Comment(s): Father at the age of 80yrs. Mother Family Medical History: Coronary Artery Disease (CAD) Additional Family Medical History / Comment(s): Mother at the age of 70yrs. Medications and Allergies Home Medications Medication Instructions Recorded Confirmed Type Tacrolimus [Prograf] 2 mg PO BID 11/15/14 09/01/18 History ALPRAZolam [Xanax] 0.5 mg PO TID PRN 01/27/18 09/01/18 History Cyanocobalamin (Vitamin B-12) 1,000 mcg PO DAILY 01/27/18 09/01/18 History [Vitamin B-12] Metoprolol Tartrate [Lopressor] 25 mg PO BID 01/27/18 09/01/18 History Multivitamins, Thera [Multivitamin 1 tab PO DAILY 01/27/18 09/01/18 History (formulary)] Mycophenolate Sodium [Mycophenolic 360 mg PO BID 01/27/18 09/01/18 History Acid] Apixaban [Eliquis] 5 mg PO BID@0600,1800 #60 tab 01/30/18 09/01/18 Rx Diltiazem Oral [Cardizem*] 30 mg PO TID #90 tab 01/30/18 09/01/18 Rx Allopurinol [Zyloprim] 100 mg PO DAILY 04/14/18 09/01/18 History Docusate [Colace] 100 mg PO DAILY 09/01/18 09/01/18 History Famotidine [Pepcid] 20 mg PO DAILY 09/01/18 09/01/18 History Folic Acid 1 mg PO DAILY 09/01/18 09/01/18 History Ipratropium-Albuterol Nebulize 3 ml INHALATION RT-QID 09/01/18 09/01/18 History [Duoneb 0.5 mg-3 mg/3 ml Soln] LORazepam [Ativan] 0.5 mg PO HS PRN 09/01/18 09/01/18 History LORazepam [Ativan] 1 mg PO Q8H 09/01/18 09/01/18 History Thiamine [Vitamin B-1] 100 mg PO DAILY 09/01/18 09/01/18 History predniSONE 1 mg PO DAILY 09/01/18 09/01/18 History Allergies Allergy/AdvReac Type Severity Reaction Status Date / Time No Known Allergies Allergy Verified 09/01/18 20:39 Physical Exam Vitals: Vital Signs Temp Pulse Pulse Resp BP BP Pulse Ox 09/02/18 11:48 104 H 16 09/02/18 11:43 94 L 09/02/18 11:39 114 H 16 09/02/18 09:19 95 09/02/18 08:00 98.6 F 114 H 20 132/86 95 09/02/18 04:00 99.1 F 68 20 133/82 92 L 09/02/18 03:42 99.1 F 68 20 133/82 92 L 09/02/18 02:43 97.8 F 95 24 159/105 100 09/02/18 01:03 96 20 152/98 95 09/02/18 00:15 94 20 147/105 95 09/01/18 23:16 94 20 130/94 90 L 09/01/18 23:00 97 24 137/87 87 L 09/01/18 22:45 87 L 09/01/18 22:25 97.9 F 09/01/18 22:00 104 H 21 129/87 85 L 09/01/18 21:00 86 23 145/97 09/01/18 20:19 32 H 143/94 09/01/18 20:15 98.1 F 105 H 28 H 143/94 97 Intake and Output 09/01/18 09/02/18 09/02/18 22:59 06:59 14:59 Intake Total 80 120 Output Total 400 200 Balance -320 -80 Intake: Oral 80 120 Output: Urine 400 200 Other: Voiding Method Urinal Urinal # Voids 2 Weight 77.111 kg 61 kg GENERAL: Emaciated thin male who looks older than his stated age and in no acute distress. HEAD: Atraumatic, normocephalic. EYES: Pupils equal round and reactive to light, extraocular movements intact, sclera anicteric, conjunctiva are normal. ENT:nares patent, oropharynx clear without exudates. Moist mucous membranes. NECK: Normal range of motion, supple without lymphadenopathy or JVD, no thyromegaly LUNGS: Breath sounds coarse to auscultation bilaterally and equal. No wheezes rales and minimal rhonchi to the left base. HEART: Regular rate and rhythm without murmurs, rubs or gallops.S1S2 Normal ABDOMEN: Soft, nontender, normoactive bowel sounds. No guarding, no rebound. No masses appreciated. There is a PEG tube in place. EXTREMITIES: Normal range of motion, no pitting or edema. No clubbing or cyanosis. NEUROLOGICAL: Cranial nerves II through XII grossly intact. Dysarthria is noted , gait untested. PSYCH: Normal mood, normal affect. SKIN: Warm, Dry, normal turgor, no rashes or lesions noted. Results CBC & Chem 7: 09/01/18 20:56 09/01/18 20:56 Labs: Abnormal Lab Results - Last 24 Hours (Table) 09/01/18 09/01/18 09/01/18 Range/Units 20:26 20:56 20:56 WBC 10.8 H (3.8-10.6) k/uL RBC 3.72 L (4.30-5.90) m/uL Hgb 9.0 L (13.0-17.5) gm/dL Hct 29.7 L (39.0-53.0) % MCV 79.8 L (80.0-100.0) fL MCH 24.1 L (25.0-35.0) pg MCHC 30.2 L (31.0-37.0) g/dL RDW 17.0 H (11.5-15.5) % Neutrophils # 9.9 H (1.3-7.7) k/uL Lymphocytes # 0.3 L (1.0-4.8) k/uL Sodium 133 L (137-145) mmol/L BUN 37 H (9-20) mg/dL Glucose 267 H (74-99) mg/dL POC Glucose (mg/dL) 304 H (75-99) mg/dL Total Protein 5.5 L (6.3-8.2) g/dL Albumin 3.0 L (3.5-5.0) g/dL Urine Protein (Negative) 09/01/18 09/02/18 Range/Units 22:30 06:33 WBC (3.8-10.6) k/uL RBC (4.30-5.90) m/uL Hgb (13.0-17.5) gm/dL Hct (39.0-53.0) % MCV (80.0-100.0) fL MCH (25.0-35.0) pg MCHC (31.0-37.0) g/dL RDW (11.5-15.5) % Neutrophils # (1.3-7.7) k/uL Lymphocytes # (1.0-4.8) k/uL Sodium (137-145) mmol/L BUN (9-20) mg/dL Glucose (74-99) mg/dL POC Glucose (mg/dL) 102 H (75-99) mg/dL Total Protein (6.3-8.2) g/dL Albumin (3.5-5.0) g/dL Urine Protein Trace H (Negative) Microbiology - Last 24 Hours (Table) 09/01/18 22:30 Urine Culture - Preliminary Urine,Voided 09/02/18 01:13 Sputum Culture - Preliminary Sputum Chest x-ray: report reviewed (Correlate for pneumonia) Thrombosis Risk Factor Assmnt - DVT/VTE Prophylaxis DVT/VTE Prophylaxis: Pharmacologic Prophylaxis ordered (He is currently on Elequis for paroxysmal atrial fibrillation) - Choose All That Apply Any of the Below Risk Factors Present?: Yes Each Factor Represents 1 point: Serious lung disease incl. pneumonia (< 1month) Other Risk Factors: Yes Each Risk Factor Represents 2 Points: Age 61-74 years Other congenital or acquired thrombophilia - If yes, enter type in comment: No Thrombosis Risk Factor Assessment Total Risk Factor Score: 3 Thrombosis Risk Factor Assessment Level: Moderate Risk Assessment and Plan (1) Aspiration pneumonia Current Visit: Yes Status: Acute Code(s): J69.0 - PNEUMONITIS DUE TO INHALATION OF FOOD AND VOMIT SNOMED Code(s): 143813522 (2) Atrial fibrillation Current Visit: Yes Status: Acute Code(s): I48.91 - UNSPECIFIED ATRIAL FIBRILLATION SNOMED Code(s): 82297089 (3) Diastolic CHF Current Visit: Yes Status: Acute Code(s): I50.30 - UNSPECIFIED DIASTOLIC ( CONGESTIVE) HEART FAILURE SNOMED Code(s): 371092280 (4) PEG (percutaneous endoscopic gastrostomy) status Current Visit: Yes Status: Acute Code(s): Z93.1 - GASTROSTOMY STATUS SNOMED Code(s): 875082222 (5) Immunosuppression due to drug therapy Current Visit: Yes Status: Acute Code(s): Z79.899 - OTHER SNF (CURRENT ) DRUG THERAPY SNOMED Code(s): 43760350 (6) H/O: lung cancer Current Visit: Yes Status: Acute Code(s): Z85.118 - PERSONAL HISTORY OF MALIGNANT NEOPLASM OF BRONCHUS AND LUNG SNOMED Code(s): 993568546 (7) H/O tongue cancer Current Visit: Yes Status: Acute Code(s): Z85.810 - PERSONAL HISTORY OF MALIGNANT NEOPLASM OF TONGUE SNOMED Code(s): 341479292 (8) Debility Current Visit: Yes Status: Acute Code(s): R53.81 - OTHER MALAISE SNOMED Code(s): 47579666 (9) History of kidney transplant Current Visit: No Status: Acute Code(s): Z94.0 - KIDNEY TRANSPLANT STATUS SNOMED Code(s): 535528960 (10) Hemoptysis, unspecified Current Visit: Yes Status: Acute Code(s): R04.2 - HEMOPTYSIS SNOMED Code(s ): 36009768 (11) Anticoagulant long-term use Current Visit: Yes Status: Acute Code(s): Z79.01 - SNF (CURRENT) USE OF ANTICOAGULANTS SNOMED Code(s): 500154503 (12) Microcytic anemia Current Visit: Yes Status: Acute Code(s): D50.9 - IRON DEFICIENCY ANEMIA, UNSPECIFIED SNOMED Code(s): 288190755 Plan: I'll put in a consult for pulmonology regarding the nursing report of hemoptysis. Also an aspiration pneumonia. He'll continue on his antibiotics of vancomycin. We'll consult cardiology regarding his anticoagulation with Elequis and there are reports of hemoptysis. This may need to be stopped. We'll monitor his coughing. Consult nephrology regarding his kidney transplant status. He'll remain nothing by mouth except for ice chips orally and continue tube feed via PEG tube. We'll consult resident dietitian for recommended tube feeds. Last physical therapy to see him when he is a little better shape for his medical debility which is ongoing. He'll be reevaluated next 24 hours. Repeat labs in a.m. Time with Patient: Greater than 30
[2018-09-02] MEDS ORDERED: [UNRECOGNIZED DRUG - OTHER] IV SCH (13:15)
--- NOTE | 2018-09-02 13:43 | CONS ---
CONSULTATION REASON FOR CONSULT: Status post kidney transplant. HISTORY OF PRESENT ILLNESS: The patient is a 68-year-old male with a history of donor renal transplant in 2004. 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 The patient was admitted to the hospital with complaints of shortness of breath and weakness. His chest x-ray shows bilateral infiltrates and currently patient is being treated for pneumonia. Recently, patient had been in rehab for about 3 weeks where he did not get his immunosuppressive medications and these were restarted about 3 days ago. The patient denied any nausea or abdominal pain. No rashes. No fever. No urinary symptoms. He did have shortness of breath as per HPI. 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 History of hearing loss, psoriasis, hypothyroidism, osteoarthritis. PAST SURGICAL HISTORY: Appendectomy, bilateral hip arthroplasty, tonsillectomy, PEG tube placement. SOCIAL HISTORY: Patient is a former smoker. No history of drug abuse or alcohol abuse. MEDICATIONS: Medications at home prior to admission included Prograf 2 mg b.i.d., Xanax, metoprolol, CellCept 360 mg b.i.d., Zyloprim, Colace, Pepcid, iron, Ativan, vitamin D, prednisone. ALLERGIES: Allergies include NKDA. REVIEW OF SYSTEMS: As per HPI. Other systems negative. EXAMINATION: Patient is comfortable, awake, alert, oriented x3, not in any acute distress. Blood pressure this morning 133/82, heart rate of 68 per minute. The patient is afebrile. Examination of the heart S1, S2. Examination of the lungs bilateral breath sounds are heard. Bilateral crackles are heard. Abdomen is soft, nontender. The PEG tube site shows drainage wound. Examination of the lower extremities shows no evidence of edema. HOSPITAL TECHNICIAN exam is grossly intact. Patient moving all 4 extremities. LAB: Show sodium 133, potassium 5.1, chloride 98, BUN 37, serum creatinine 0.7. UA is benign with trace protein. The hemoglobin was 9.0, white cell count 10.8. Influenza serologies negative. ASSESSMENT: 1. End-stage renal disease, status post donor renal transplant 2004. Renal function is at baseline. I will hold the Prograf for now given his severe pneumonia. We can continue with the prednisone and the CellCept for now. If the underlying infection worsens, we will hold off on the CellCept as well. 2. Bilateral pneumonia maintained on antibiotics. His nasal swab was negative for flu. 3. History of hypothyroidism. 4. History of cancer of the base of the tongue, status post chemo and radiation therapy currently with a PEG tube. 5. Possible infection around the PEG tube site. 6. Anemia of chronic disease. PLAN: Maintain IV fluids. Continue antibiotics. Hold off on Prograf. We can continue with CellCept and prednisone for now and repeat labs in a.m. check a culture from the drainage at the site of the PEG tube. Check a Prograf level as well. Of note, the patient has been off of all of his immunosuppressive medications for about 3 weeks and these were restarted about 3 days ago. Thank you for this consultation. We will continue to follow the patient with you during his hospitalization. MMODL / IJN: [id number] /
[2018-09-02 14:43] LABS: Anisocytosis Slight; Basophils % (A) 0 %; Eosinophils # (A) 0.1 k/uL (0-0.7); Eosinophils % (A) 1 %; HGB 8.7 gm/dL (13.0-17.5); Hypochromasia Marked; Lymphocytes # (A) 0.3 k/uL (1.0-4.8); Lymphocytes % (A) 4 %; MCH 24.5 pg (25.0-35.0); MCHC 30.1 g/dL (31.0-37.0); MCV 81.5 fL (80.0-100.0); Mean Platelet Volume 6.9; Monocytes # (A) 0.3 k/uL (0-1.0); Monocytes % (A) 4 %; Neutrophils # (A) 6.6 k/uL (1.3-7.7); Neutrophils % (A) 90 %; Platelet Count 262 k/uL (150-450); RBC 3.56 m/uL (4.30-5.90); RDW 17.1 % (11.5-15.5); WBC 7.4 k/uL (3.8-10.6)
[2018-09-02 14:52] LABS: Anion Gap 7 mmol/L; Blood Urea Nitrogen 28 mg/dL (9-20); Calcium 8.8 mg/dL (8.4-10.2); Carbon Dioxide 26 mmol/L (22-30); Chloride 104 mmol/L (98-107); Glucose 80 mg/dL (74-99); Sodium 137 mmol/L (137-145)
--- NOTE | 2018-09-02 15:30 | P.CNPUL ---
History of Present Illness Consult date: 09/02/18 Reason for consult: pneumonia Chief complaint: Cough and shortness of breath History of present illness: This is a 68-year-old white male primarily a patient of Dr. Casper, known history of multiple medical problems including renal transplant in 2004, history of lung cancer and previous lobectomy, history of lung cancer, history of aspiration pneumonia requiring PEG tube placement, history of atrial fibrillation, maintained on anticoagulation therapy, presented to the ER with a few days' history of cough, shortness of breath, and his chest x-ray clearly showed evidence of bilateral infiltrates consistent with aspiration pneumonia. Patient was admitted by Dr. Casper, presently on vancomycin and cefepime. Patient describes cough, cough is productive with thick yellow phlegm. No fever , no chills, no hemoptysis. Patient is maintained on 6 L nasal cannula, and his O2 saturation is 94%. Patient had a kidney transplant in 2004, and this was a cadaver transplant. Maintained on prednisone and Prograf for immunosuppression related to his kidney transplant. Patient also had previous history of tongue cancer status post chemo and radiation therapy. Had previous lung cancer and previous right sided lobectomy. Presently the patient is sitting in bed, comfortable, has mostly symptoms of cough, no fever no chills no hemoptysis no chest pain, no nausea no vomiting no abdominal pain, has a functional PEG tube in place. Denies any dysuria frequency or urgency. Chest x -ray again is consistent with bilateral pneumonia, felt to be aspiration pneumonia unless proven otherwise. Review of Systems 14 point review of systems were obtained, please refer to pertinent positives in HPI, otherwise remaining systems are negative. Past Medical History Past Medical History: Atrial Fibrillation, Heart Failure (Diastolic), Hearing Disorder / Deafness, Hypertension, Renal Disease, Skin Disorder Additional Past Medical History / Comment(s): HX OF RENAL FAILURE, ON PERITONEAL DIALYSIS 5427-4530; HAD RENAL TRANSPLANT 2004; WEARS HEARING AIDE BILATERALLY; HX OF RENAL DISEASE PRIOR TO TRANSPLANT; MILD PSORIASIS ARMS, LEGS AND BACK. SICNE CHEMO THE PSORIAIS HAS CLEARED History of Any Multi-Drug Resistant Organisms: None Reported Past Surgical History: Appendectomy, Joint Replacement, Tonsillectomy Additional Past Surgical History / Comment(s): CHEMO AND RADIATION FOR TONGUE. PEG TUBE PLACED 1 YR AGO. HAD LEFT THORACOTOMY WITH UPPER LOBECTOMY 2013. BILATERAL HIP REPLACEMENT Past Anesthesia/Blood Transfusion Reactions: No Reported Reaction Past Psychological History: Anxiety, Depression Additional Psychological History / Comment(s): WHILE GOING THROUGH THE CHEMO AND RADIATION HE HAS EXPEREINCED ANXIETY AND DEPRESSION. PT RESIDES WITH HIS SPOUSE. 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 HIS PLACE OF EMPLOYMENT IS [employer] [facility]. HE HAS EXERCISED ALL OF HIS LIFE-RUNNING AND NOW [employer]IPT[employer]. HE RESIDES WITH HIS SPOUSE. THEY HAVE A DOG. Smoking Status: Former smoker Past Alcohol Use History: Occasional Additional Past Alcohol Use History / Comment(s): Pt started smoking in 1968 and quit in 2000. He drank heavily then quit for 12 years, resumed drinking with cancer diagnosis and drinks 2-3 martinis a night. Past Drug Use History: None Reported Additional Drug Use History / Comment(s): Pt states he uses norco, about 4 times a day and feels he is probable dependent on it. He takes it as prescribed but states he feels "funny" if he goes without it. - Past Family History Father Family Medical History: Coronary Artery Disease (CAD), Renal Disease Additional Family Medical History / Comment(s): Father at the age of 80yrs. Mother Family Medical History: Coronary Artery Disease (CAD) Additional Family Medical History / Comment(s): Mother at the age of 70yrs. Medications and Allergies Home Medications Medication Instructions Recorded Confirmed Type Tacrolimus [Prograf] 2 mg PO BID 11/15/14 09/01/18 History ALPRAZolam [Xanax] 0.5 mg PO TID PRN 01/27/18 09/01/18 History Cyanocobalamin (Vitamin B-12) 1,000 mcg PO DAILY 01/27/18 09/01/18 History [Vitamin B-12] Metoprolol Tartrate [Lopressor] 25 mg PO BID 01/27/18 09/01/18 History Multivitamins, Thera [Multivitamin 1 tab PO DAILY 01/27/18 09/01/18 History (formulary)] Mycophenolate Sodium [Mycophenolic 360 mg PO BID 01/27/18 09/01/18 History Acid] Apixaban [Eliquis] 5 mg PO BID@0600,1800 #60 tab 01/30/18 09/01/18 Rx Diltiazem Oral [Cardizem*] 30 mg PO TID #90 tab 01/30/18 09/01/18 Rx Allopurinol [Zyloprim] 100 mg PO DAILY 04/14/18 09/01/18 History Docusate [Colace] 100 mg PO DAILY 09/01/18 09/01/18 History Famotidine [Pepcid] 20 mg PO DAILY 09/01/18 09/01/18 History Folic Acid 1 mg PO DAILY 09/01/18 09/01/18 History Ipratropium-Albuterol Nebulize 3 ml INHALATION RT-QID 09/01/18 09/01/18 History [Duoneb 0.5 mg-3 mg/3 ml Soln] LORazepam [Ativan] 0.5 mg PO HS PRN 09/01/18 09/01/18 History LORazepam [Ativan] 1 mg PO Q8H 09/01/18 09/01/18 History Thiamine [Vitamin B-1] 100 mg PO DAILY 09/01/18 09/01/18 History predniSONE 1 mg PO DAILY 09/01/18 09/01/18 History Allergies Allergy/AdvReac Type Severity Reaction Status Date / Time No Known Allergies Allergy Verified 09/01/18 20:39 Physical Exam Vitals: Vital Signs Temp Pulse Pulse Resp BP BP Pulse Ox 09/02/18 11:48 104 H 16 09/02/18 11:43 94 L 09/02/18 11:39 114 H 16 09/02/18 09:19 95 09/02/18 08:00 98.6 F 114 H 20 132/86 95 09/02/18 04:00 99.1 F 68 20 133/82 92 L 09/02/18 03:42 99.1 F 68 20 133/82 92 L 09/02/18 02:43 97.8 F 95 24 159/105 100 09/02/18 01:03 96 20 152/98 95 09/02/18 00:15 94 20 147/105 95 09/01/18 23:16 94 20 130/94 90 L 09/01/18 23:00 97 24 137/87 87 L 09/01/18 22:45 87 L 09/01/18 22:25 97.9 F 09/01/18 22:00 104 H 21 129/87 85 L 09/01/18 21:00 86 23 145/97 09/01/18 20:19 32 H 143/94 09/01/18 20:15 98.1 F 105 H 28 H 143/94 97 Intake and Output 09/02/18 09/02/18 09/02/18 06:59 14:59 22:59 Intake Total 80 120 Output Total 400 200 Balance -320 -80 Intake: Oral 80 120 Output: Urine 400 200 Other: Voiding Method Urinal Urinal # Voids 2 1 Weight 61 kg 61 kg GENERAL: Emaciated thin male who looks older than his stated age and in no acute distress. HEAD: Atraumatic, normocephalic. EYES: Pupils equal round and reactive to light, extraocular movements intact, sclera anicteric, conjunctiva are normal. ENT:nares patent, oropharynx clear without exudates. Moist mucous membranes. NECK: Normal range of motion, supple without lymphadenopathy or JVD, no thyromegaly LUNGS: Breath sounds coarse to auscultation bilaterally and equal. No wheezes rales and minimal rhonchi to the left base. HEART: Regular rate and rhythm without murmurs, rubs or gallops.S1S2 Normal ABDOMEN: Soft, nontender, normoactive bowel sounds. No guarding, no rebound. No masses appreciated. There is a PEG tube in place. EXTREMITIES: Normal range of motion, no pitting or edema. No clubbing or cyanosis. NEUROLOGICAL: Cranial nerves II through XII grossly intact. Dysarthria is noted , gait untested. PSYCH: Normal mood, normal affect. SKIN: Warm, Dry, normal turgor, no rashes or lesions noted. Results - Laboratory Findings CBC and BMP: 09/02/18 14:19 09/02/18 14:19 PT/INR, D-dimer PT 10.8 sec (9.0-12.0) 09/01/18 20:56 INR 1.1 (<1.2) 09/01/18 20:56 Abnormal lab findings: Abnormal Labs 09/01/18 09/01/18 09/01/18 20:26 20:56 20:56 WBC 10.8 H RBC 3.72 L Hgb 9.0 L Hct 29.7 L MCV 79.8 L MCH 24.1 L MCHC 30.2 L RDW 17.0 H Neutrophils # 9.9 H Lymphocytes # 0.3 L Sodium 133 L BUN 37 H Glucose 267 H POC Glucose (mg/dL) 304 H Total Protein 5.5 L Albumin 3.0 L Urine Protein 09/01/18 09/02/18 09/02/18 22:30 06:33 14:19 WBC RBC 3.56 L Hgb 8.7 L Hct 29.0 L MCV MCH 24.5 L MCHC 30.1 L RDW 17.1 H Neutrophils # Lymphocytes # 0.3 L Sodium BUN Glucose POC Glucose (mg/dL) 102 H Total Protein Albumin Urine Protein Trace H 09/02/18 14:19 WBC RBC Hgb Hct MCV MCH MCHC RDW Neutrophils # Lymphocytes # Sodium BUN 28 H Glucose POC Glucose (mg/dL) Total Protein Albumin Urine Protein - Diagnostic Findings Chest x-ray: image reviewed (Bilateral pleural parenchymal changes, mostly consistent with aspiration pneumonia.) Assessment and Plan Assessment: Impression: 1 acute aspiration pneumonia 2 chronic atrial fibrillation 3 history of diastolic congestive heart failure, however his chest x-ray is not consistent with pulmonary edema. 4 history of lung cancer and previous lobectomy 5 history of lung cancer and previous radiation treatment 6 medical debility, a shunt is mostly bedridden, uses a walker to ambulate around his bed. 7 history of kidney transplant maintained on immunosuppressive therapy/Prograf and prednisone. 8 occasional hemoptysis secondary to pneumonia and the fact that the patient is on anticoagulation therapy. No need to consider bronchoscopy at this point. Recommendation: Continue present course of antibiotics, no need for bronchoscopy at this point, suggested an infectious disease consultation, will continue to follow. Consider swallow evaluation, make sure patient remains nothing by mouth, and use the PEG tube only. Will follow. Time with Patient: Greater than 30
--- NOTE | 2018-09-02 15:40 | CONS ---
CONSULTATION Mr. Meyer is a 68-year-old male who recently underwent back surgery, has a known history of atrial fibrillation, PEG tube feeding because of difficulty in swallowing. He is status post renal transplant and prior chemotherapy and radiation of carcinoma of the tongue. His back surgery was done recently and has been complicated, with a prolonged admission. Patient has the atrial fibrillation. His rate is controlled and he has been anticoagulated. His coronary risk factors are remarkable for hypertension. He is not diabetic. He stopped smoking in the past. He presented to the emergency room with progressive dyspnea and cough and it was felt to be related to aspiration pneumonia. HOME MEDICATIONS: His medications at home included: 1. Thiamine. 2. Pepcid. 3. Lorazepam. 4. Prograf. 5. Mycophenolic. 6. Lopressor 25 mg twice a day. 7. Cardizem 30 mg 3 times a day. 8. Eliquis 5 mg twice a day. 9. Xanax. REVIEW OF SYSTEMS: RESPIRATORY SYSTEM:He has dyspnea on exertion cough. GI SYSTEM: No recent GI bleeding. He has a PEG tube placed. SYSTEM: No dysuria or hematuria. He has a prior history of renal transplant. NERVOUS SYSTEM: No seizure. PHYSICAL EXAMINATION: This patient is a 68-year-old male, alert, no significant distress. Blood pressure 132/80 with a heart rate in the low 100s, high 90s. HEAD: Normocephalic. EYES: Sclerae anicteric. NECK: No bruit. LUNGS: Scattered crackles. HEART: Irregularly irregular. S1, S2. No S3, with systolic murmur. No diastolic murmur. No rub. ABDOMEN: Soft. PEG tube in place. No organomegaly. EXTREMITIES: No edema. LAB DATA: Hemoglobin 9, white blood cell count of 10.8, platelet count of 286. BUN and creatinine of 37 and 0.9. His hemoglobin today is 8.7. His EKG revealed atrial fibrillation with nonspecific ST-T wave changes. His chest x-ray is consistent with bilateral pulmonary infiltrate consistent with pneumonia. IMPRESSION: 1. Pneumonia, probably aspiration pneumonia in a patient with a problem swallowing following his recent surgery with PEG tube. 2. Atrial fibrillation, persistent, anticoagulated. 3. Recent back surgery. 4. Status post renal transplant. 5. Hypertension. RECOMMENDATIONS: From the cardiac standpoint, we will continue on the present therapy. There is no evidence to suggest congestive heart failure at this time. Depending on his ventricular response, his negative chronotropic drugs can be adjusted. Thank you for this consult. Will follow with you. DESTINY / ANASTASIA: [id number] /
[2018-09-02] MEDS: VANCOMYCIN 1,250 MG in SODIUM CHLORIDE 0.9% 250 ML IVPB SCH (16:38)
[2018-09-02 17:00] LABS: Glucose,Whole Blood 91 mg/dL (75-99)
[2018-09-02] MEDS: AZITHROMYCIN 500 MG TAB PO SCH (21:40)
[2018-09-02] MEDS: HYDROcodone/APAP 15 ML SOLUTION PEG/G-TUBE PRN (21:41)
[2018-09-02 21:58] LABS: Glucose,Whole Blood 143 mg/dL (75-99)
[2018-09-03] MEDS: SODIUM CHLORIDE 0.9% 1,000 ML IV SCH ×3 (00:39→15:56)
[2018-09-03 01:48] LABS: Iron Saturation 2.62 (15.00-50.00)
[2018-09-03 02:01] LABS: Folate, Serum >24.0 ng/mL
[2018-09-03] MEDS: CEFEPIME 2 GM in SODIUM CHLORIDE 0.9% 50 ML IVPB SCH ×4 (02:17→21:04)
[2018-09-03] MEDS: VANCOMYCIN 1,250 MG in SODIUM CHLORIDE 0.9% 250 ML IVPB SCH ×2 (03:25→08:52)
[2018-09-03] MEDS ORDERED: VANCOMYCIN TROUGH DUE 1 EACH MISC MISCELLANE ONE ×2 (05:00→11:00)
[2018-09-03 06:06] LABS: Anisocytosis Slight; Basophils % (A) 0 %; Eosinophils # (A) 0.1 k/uL (0-0.7); Eosinophils % (A) 1 %; HCT 28.8 % (39.0-53.0); HGB 8.8 gm/dL (13.0-17.5); Hypochromasia Marked; Lymphocytes # (A) 0.3 k/uL (1.0-4.8); Lymphocytes % (A) 4 %; MCH 24.5 pg (25.0-35.0); MCHC 30.5 g/dL (31.0-37.0); MCV 80.4 fL (80.0-100.0); Mean Platelet Volume 6.6; Monocytes # (A) 0.4 k/uL (0-1.0); Monocytes % (A) 5 %; Neutrophils # (A) 6.1 k/uL (1.3-7.7); Neutrophils % (A) 89 %; Platelet Count 275 k/uL (150-450); RBC 3.58 m/uL (4.30-5.90); RDW 16.8 % (11.5-15.5); WBC 6.8 k/uL (3.8-10.6)
[2018-09-03 06:18] LABS: Potassium 5.1 mmol/L (3.5-5.1)
[2018-09-03 06:19] LABS: Anion Gap 7 mmol/L; Blood Urea Nitrogen 29 mg/dL (9-20); Calcium 8.9 mg/dL (8.4-10.2); Carbon Dioxide 24 mmol/L (22-30); Chloride 105 mmol/L (98-107); Glucose 106 mg/dL (74-99); Sodium 136 mmol/L (137-145)
[2018-09-03 06:22] LABS: Glucose,Whole Blood 127 mg/dL (75-99)
[2018-09-03] MEDS: INSULIN ASPART 100 UNIT/ML 1 ML 10 ML VIAL SQ SCH ×4 (06:26→20:59)
[2018-09-03] MEDS: APIXABAN 5 MG TAB PO SCH ×2 (06:34→16:54)
[2018-09-03] MEDS: LORazepam 1 MG TAB PO SCH ×3 (06:34→22:19)
[2018-09-03] MEDS: IPRATROPIUM-ALBUTEROL 3 ML NEB INHALATION SCH ×4 (08:02→20:16)
[2018-09-03] MEDS: DOCUSATE 100 MG CAP PO SCH (08:53)
[2018-09-03] MEDS: MYCOPHENOLATE SODIUM 360 MG PO SCH ×2 (08:53→21:04)
[2018-09-03] MEDS: FAMOTIDINE 20 MG TAB PO SCH (09:00)
[2018-09-03] MEDS: METOPROLOL TARTRATE 25 MG TAB PO SCH ×3 (09:00→22:19)
[2018-09-03] MEDS: DILTIAZEM ORAL 30 MG TAB PO SCH ×3 (09:00→22:19)
[2018-09-03] MEDS: ALLOPURINOL 100 MG TAB PO SCH (09:01)
[2018-09-03] MEDS: FOLIC ACID 1 MG TAB PO SCH (09:01)
[2018-09-03] MEDS: THIAMINE 100 MG TAB PO SCH (09:01)
[2018-09-03] MEDS: MULTIVITAMINS, THERA 1 EACH TAB PO SCH (09:01)
[2018-09-03] MEDS: predniSONE 1 MG TAB PO SCH (09:02)
[2018-09-03] MEDS: HYDROcodone/APAP 15 ML SOLUTION PEG/G-TUBE PRN (09:16)
[2018-09-03 11:33] LABS: Glucose,Whole Blood 147 mg/dL (75-99)
--- NOTE | 2018-09-03 11:43 | P.PN ---
Subjective This 68-year-old white male although the practice. 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 He is medically debilitated after back surgery. He has a history of atrial fibrillation on anticoagulation and PEG tube feedings due to aphasia. Apparently for the past several days he's been having increasing cough and shortness of breath. His caregiver at home and call our office notifying us he been eating. He has a history of kidney transplant 2005 is on immunosuppression. 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 Is currently on prednisone and Prograf for immunosuppression or his kidney transplant. Nursing staff report that he had aspirated while they're trying to give him his meds and feed him. He is currently nothing by mouth with tube feeds only at this time. Nursing staff also reported hemoptysis with his coughing. He recently had lumbar back surgery in the summer of 2017. He reports he still is only able to ambulate with a walker due to pain. He was in [facility] up until 2 weeks ago. 09/03/2018: Overnight patient had pain and was started on liquid hydrocodone through PEG tube. He remains on antibiotics of azithromycin, cefepime, and vancomycin. Nephrology had discontinued one of his immunosuppressants due to his pneumonia. Pulmonology has seen the patient and there is no current need for bronchoscopy at this point. Cardiology recommended to continue his current medications. They're monitoring his atrial fibrillation and he remains on Elequis. He has had some faster heart rates, borderlining RVR with A. fib. Staff are monitoring this. He denies any chest pains or pressures this morning. He denies any nausea or vomiting. He is only had ice chips overnight. He did get a second dose of pain medication approximately 9 AM this morning. His is at bedside and case discussed with her. Objective - Vital Signs Vital signs: Vital Signs Temp 98.0 F 09/03/18 08:00 Pulse 108 H 09/03/18 08:15 Resp 18 09/03/18 08:00 BP 152/98 09/03/18 08:00 Pulse Ox 93 L 09/03/18 08:00 Intake & Output 09/02/18 09/03/18 09/03/18 18:59 06:59 18:59 Intake Total 120 750 Output Total 200 500 Balance -80 250 Weight 61 kg 61.1 kg Intake: Intake, IV Titration 750 Amount Cefepime 2 gm In Sodium 100 Chloride 0.9% 50 ml @ 100 mls/hr IVPB Q8H [facility] Rx#: [id number] Sodium Chloride 0.9% 1, 400 000 ml @ 100 mls/hr IV . BY DURATION [facility]ORY Rx#: [id number] Sodium Chloride 0.9% 1, 0 000 ml @ 100 mls/hr IV . Q10H [facility] Rx#:[id number] Vancomycin 1,250 mg In 250 Sodium Chloride 0.9% 250 ml @ 125 mls/hr IVPB Q8H [facility]ORY Rx#:[id number] Oral 120 0 Output: Urine 200 500 Other: Voiding Method Urinal Urinal # Voids 1 3 - Exam GENERAL: Emaciated thin male who looks older than his stated age and in no acute distress. NECK: Normal range of motion, supple without lymphadenopathy or JVD, no thyromegaly LUNGS: Breath sounds coarse to auscultation bilaterally and equal. No wheezes rales and minimal rhonchi to the left base. HEART: Regular rate and rhythm without murmurs, rubs or gallops.S1S2 Normal ABDOMEN: Soft, nontender, normoactive bowel sounds. No guarding, no rebound. No masses appreciated. There is a PEG tube in place. EXTREMITIES: Normal range of motion, no pitting or edema. No clubbing or cyanosis. He has had known back surgery and has some weakness due to this. NEUROLOGICAL: Cranial nerves II through XII grossly intact. Dysarthria is noted , gait untested. PSYCH: Normal mood, normal affect. SKIN: Warm, Dry, normal turgor, no rashes or lesions noted. - Labs CBC & Chem 7: 09/03/18 05:31 09/03/18 05:31 Labs: Abnormal Lab Results - Last 24 Hours (Table) 09/02/18 09/02/18 09/02/18 Range/Units 14:19 14:19 14:19 RBC 3.56 L (4.30-5.90) m/uL Hgb 8.7 L (13.0-17.5) gm/dL Hct 29.0 L (39.0-53.0) % MCH 24.5 L (25.0-35.0) pg MCHC 30.1 L (31.0-37.0) g/dL RDW 17.1 H (11.5-15.5) % Lymphocytes # 0.3 L (1.0-4.8) k/uL Sodium (137-145) mmol/L BUN 28 H (9-20) mg/dL Glucose (74-99) mg/dL POC Glucose (mg/dL) (75-99) mg/dL Iron 7 L (65-175) ug/dL Iron Saturation 2.62 L (15.00-50.00) Prealbumin (18.0-42.0) mg/dL Vancomycin Trough ug/mL 09/02/18 09/03/18 09/03/18 Range/Units 21:57 05:31 05:31 RBC (4.30-5.90) m/uL Hgb (13.0-17.5) gm/dL Hct (39.0-53.0) % MCH (25.0-35.0) pg MCHC (31.0-37.0) g/dL RDW (11.5-15.5) % Lymphocytes # (1.0-4.8) k/uL Sodium (137-145) mmol/L BUN (9-20) mg/dL Glucose (74-99) mg/dL POC Glucose (mg/dL) 143 H (75-99) mg/dL Iron (65-175) ug/dL Iron Saturation (15.00-50.00) Prealbumin 15.0 L (18.0-42.0) mg/dL Vancomycin Trough 46.7 H* ug/mL 09/03/18 09/03/18 09/03/18 Range/Units 05:31 05:31 06:19 RBC 3.58 L (4.30-5.90) m/uL Hgb 8.8 L (13.0-17.5) gm/dL Hct 28.8 L (39.0-53.0) % MCH 24.5 L (25.0-35.0) pg MCHC 30.5 L (31.0-37.0) g/dL RDW 16.8 H (11.5-15.5) % Lymphocytes # 0.3 L (1.0-4.8) k/uL Sodium 136 L (137-145) mmol/L BUN 29 H (9-20) mg/dL Glucose 106 H (74-99) mg/dL POC Glucose (mg/dL) 127 H (75-99) mg/dL Iron (65-175) ug/dL Iron Saturation (15.00-50.00) Prealbumin (18.0-42.0) mg/dL Vancomycin Trough ug/mL 09/03/18 Range/Units 11:19 RBC (4.30-5.90) m/uL Hgb (13.0-17.5) gm/dL Hct (39.0-53.0) % MCH (25.0-35.0) pg MCHC (31.0-37.0) g/dL RDW (11.5-15.5) % Lymphocytes # (1.0-4.8) k/uL Sodium (137-145) mmol/L BUN (9-20) mg/dL Glucose (74-99) mg/dL POC Glucose (mg/dL) 147 H (75-99) mg/dL Iron (65-175) ug/dL Iron Saturation (15.00-50.00) Prealbumin (18.0-42.0) mg/dL Vancomycin Trough ug/mL Microbiology - Last 24 Hours (Table) 09/01/18 22:30 Urine Culture - Final Urine,Voided 09/01/18 20:56 Blood Culture - Preliminary Blood No Growth after 24 hours 09/02/18 09:05 Gram Stain - Preliminary Abdomen Wound Culture - Preliminary 09/02/18 01:13 Gram Stain - Preliminary Sputum Sputum Culture - Preliminary Assessment and Plan (1) Aspiration pneumonia Current Visit: Yes Status: Acute Code(s): J69.0 - PNEUMONITIS DUE TO INHALATION OF FOOD AND VOMIT SNOMED Code(s): 830742774 (2) Atrial fibrillation Current Visit: Yes Status: Acute Code(s): I48.91 - UNSPECIFIED ATRIAL FIBRILLATION SNOMED Code(s): 85156140 (3) Diastolic CHF Current Visit: Yes Status: Acute Code(s): I50.30 - UNSPECIFIED DIASTOLIC ( CONGESTIVE) HEART FAILURE SNOMED Code(s): 283966796 (4) PEG (percutaneous endoscopic gastrostomy) status Current Visit: Yes Status: Acute Code(s): Z93.1 - GASTROSTOMY STATUS SNOMED Code(s): 647894742 (5) Immunosuppression due to drug therapy Current Visit: Yes Status: Acute Code(s): Z79.899 - OTHER MACHINE ERECTOR (CURRENT ) DRUG THERAPY SNOMED Code(s): 72873883 (6) H/O: lung cancer Current Visit: Yes Status: Acute Code(s): Z85.118 - PERSONAL HISTORY OF MALIGNANT NEOPLASM OF BRONCHUS AND LUNG SNOMED Code(s): 930585385 (7) H/O tongue cancer Current Visit: Yes Status: Acute Code(s): Z85.810 - PERSONAL HISTORY OF MALIGNANT NEOPLASM OF TONGUE SNOMED Code(s): 583126491 (8) Debility Current Visit: Yes Status: Acute Code(s): R53.81 - OTHER MALAISE SNOMED Code(s): 20515924 (9) History of kidney transplant Current Visit: No Status: Acute Code(s): Z94.0 - KIDNEY TRANSPLANT STATUS SNOMED Code(s): 100101451 (10) Hemoptysis, unspecified Current Visit: Yes Status: Acute Code(s): R04.2 - HEMOPTYSIS SNOMED Code(s ): 02998705 (11) Anticoagulant long-term use Current Visit: Yes Status: Acute Code(s): Z79.01 - RESIDENTIAL (CURRENT) USE OF ANTICOAGULANTS SNOMED Code(s): 411955734 (12) Microcytic anemia Current Visit: Yes Status: Acute Code(s): D50.9 - IRON DEFICIENCY ANEMIA, UNSPECIFIED SNOMED Code(s): 809233754 (13) Low back pain Current Visit: Yes Status: Acute Code(s): M54.5 - LOW BACK PAIN SNOMED Code(s): 915104035 (14) H/O lumbosacral spine surgery Current Visit: Yes Status: Acute Code(s): Z98.890 - OTHER SPECIFIED POSTPROCEDURAL STATES SNOMED Code(s): 729386022 Plan: [facility] Technician recommendations from nephrology, pulmonology, and cardiology were reviewed. Staff are monitoring his heart rate will contact cardiology should he continue to increase. He has liquid hydrocodone for pain currently. He'll continue on his current antibiotics. We'll consult infectious disease at this time. Hemoptysis has resolved. He'll remain nothing by mouth except for ice chips orally and continue tube feed via PEG tube. He will continue on PEG tube feeds ordered by dietary. Continue physical therapy. He'll be reevaluated next 24 hours. Repeat labs in a.m.
[2018-09-03] MEDS ORDERED: VANCOMYCIN 1,250 MG in SODIUM CHLORIDE 0.9% 250 ML IVPB SCH (12:00)
--- NOTE | 2018-09-03 13:42 | P.PN ---
Subjective Progress Note Date: 09/03/18 This is a 68 stroke gentleman who recently underwent back surgery, he has known history of atrial fibrillation, he is on PEG tube feeding because of difficulty in swallowing. 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 Patient is in atrial fibrillation, he is anticoagulated, his coronary risk factors are remarkable for hypertension, he is nondiabetic, he quit smoking in the past. He presented to the hospital primarily with symptoms of dyspnea and associated cough which was felt to be secondary to aspiration pneumonia. He was seen and examined this morning, states overall he's feeling significantly better. His blood pressure today is 152/90 with a heart rate of 108-113. White blood cell count 6.8, hemoglobin 8.8, platelet count 275. Sodium 136, potassium 5.1, BUN 29, creatinine 0.7. Objective - Vital Signs Vital signs: Vital Signs Temp 98.0 F 09/03/18 08:00 Pulse 108 H 09/03/18 08:15 Resp 18 09/03/18 08:00 BP 152/98 09/03/18 08:00 Pulse Ox 93 L 09/03/18 08:00 Intake & Output 09/02/18 09/03/18 09/03/18 18:59 06:59 18:59 Intake Total 265 873 4220 Output Total 200 500 100 Balance -80 250 901 Weight 61 kg 61.1 kg Intake: Intake, IV Titration 750 1001 Amount Cefepime 2 gm In Sodium 100 Chloride 0.9% 50 ml @ 100 mls/hr IVPB Q8H [facility] Rx#: [id number] Sodium Chloride 0.9% 1, 400 000 ml @ 100 mls/hr IV . BY DURATION [facility] Rx#: [id number] Sodium Chloride 0.9% 1, 0 000 ml @ 100 mls/hr IV . Q10H [facility] Rx#:[id number] Trace (Conc-1Ml/Dose) 1 1001 ml In Sodium Chloride 0.9 % 1,000 ml @ 100 mls/hr IV .BY DURATION [facility] Rx#: [id number] Vancomycin 1,250 mg In 250 Sodium Chloride 0.9% 250 ml @ 125 mls/hr IVPB Q8H [facility] Rx#:[id number] Oral 120 0 Output: Urine 200 500 100 Other: Voiding Method Urinal Urinal # Voids 1 3 - Exam PHYSICAL EXAMINATION: GENERAL: 68-year-old gentleman in no acute distress at the time of my examination HEENT: Head is atraumatic, normocephalic. Pupils equal, round. Sclera anicteric. Conjunctiva are clear. Mucous membranes of the mouth are moist. Neck is supple. There is no elevated jugular venous pressure. No carotid bruit is heard. HEART EXAMINATION: Heart S1 S2 irregularly irregular systolic murmur is heard. CHEST EXAMINATION: His reveal crackles to bilateral bases. ABDOMEN: Soft, nontender. Bowel sounds are heard. No organomegaly noted. PEG tube in place. EXTREMITIES: 2+ peripheral pulses with no evidence of peripheral edema and no calf tenderness noted. NEUROLOGIC patient is awake, alert and oriented 3. . - Labs CBC & Chem 7: 09/03/18 05:31 09/03/18 05:31 Labs: Abnormal Lab Results - Last 24 Hours (Table) 09/02/18 09/02/18 09/02/18 Range/Units 14:19 14:19 14:19 RBC 3.56 L (4.30-5.90) m/uL Hgb 8.7 L (13.0-17.5) gm/dL Hct 29.0 L (39.0-53.0) % MCH 24.5 L (25.0-35.0) pg MCHC 30.1 L (31.0-37.0) g/dL RDW 17.1 H (11.5-15.5) % Lymphocytes # 0.3 L (1.0-4.8) k/uL Sodium (137-145) mmol/L BUN 28 H (9-20) mg/dL Glucose (74-99) mg/dL POC Glucose (mg/dL) (75-99) mg/dL Iron 7 L (65-175) ug/dL Iron Saturation 2.62 L (15.00-50.00) Prealbumin (18.0-42.0) mg/dL Vancomycin Trough ug/mL 09/02/18 09/03/18 09/03/18 Range/Units 21:57 05:31 05:31 RBC (4.30-5.90) m/uL Hgb (13.0-17.5) gm/dL Hct (39.0-53.0) % MCH (25.0-35.0) pg MCHC (31.0-37.0) g/dL RDW (11.5-15.5) % Lymphocytes # (1.0-4.8) k/uL Sodium (137-145) mmol/L BUN (9-20) mg/dL Glucose (74-99) mg/dL POC Glucose (mg/dL) 143 H (75-99) mg/dL Iron (65-175) ug/dL Iron Saturation (15.00-50.00) Prealbumin 15.0 L (18.0-42.0) mg/dL Vancomycin Trough 46.7 H* ug/mL 09/03/18 09/03/18 09/03/18 Range/Units 05:31 05:31 06:19 RBC 3.58 L (4.30-5.90) m/uL Hgb 8.8 L (13.0-17.5) gm/dL Hct 28.8 L (39.0-53.0) % MCH 24.5 L (25.0-35.0) pg MCHC 30.5 L (31.0-37.0) g/dL RDW 16.8 H (11.5-15.5) % Lymphocytes # 0.3 L (1.0-4.8) k/uL Sodium 136 L (137-145) mmol/L BUN 29 H (9-20) mg/dL Glucose 106 H (74-99) mg/dL POC Glucose (mg/dL) 127 H (75-99) mg/dL Iron (65-175) ug/dL Iron Saturation (15.00-50.00) Prealbumin (18.0-42.0) mg/dL Vancomycin Trough ug/mL 09/03/18 Range/Units 11:19 RBC (4.30-5.90) m/uL Hgb (13.0-17.5) gm/dL Hct (39.0-53.0) % MCH (25.0-35.0) pg MCHC (31.0-37.0) g/dL RDW (11.5-15.5) % Lymphocytes # (1.0-4.8) k/uL Sodium (137-145) mmol/L BUN (9-20) mg/dL Glucose (74-99) mg/dL POC Glucose (mg/dL) 147 H (75-99) mg/dL Iron (65-175) ug/dL Iron Saturation (15.00-50.00) Prealbumin (18.0-42.0) mg/dL Vancomycin Trough ug/mL Microbiology - Last 24 Hours (Table) 09/01/18 22:30 Urine Culture - Final Urine,Voided 09/01/18 20:56 Blood Culture - Preliminary Blood No Growth after 24 hours 09/02/18 09:05 Gram Stain - Preliminary Abdomen Wound Culture - Preliminary 09/02/18 01:13 Gram Stain - Preliminary Sputum Sputum Culture - Preliminary Assessment and Plan Plan: Assessment and plan #1 pneumonia, probably aspiration pneumonia in a patient with problems swallowing following his recent surgery with PEG tube placement #2 chronic persistent atrial fibrillation, on anticoagulation #3 status post renal transplant #4 hypertension Plan Patient remains slightly tachycardic with elevated blood pressure, we'll increase the metoprolol to 25 mg one tablet by mouth 3 times a day today. Continue the rest of his medications. DNP note has been reviewed, I agree with a documented findings and plan of care. Patient was seen and examined.
--- NOTE | 2018-09-03 14:04 | P.PN ---
Subjective Progress Note Date: 09/03/18 Principal diagnosis: Acute aspiration pneumonia This is a 68-year-old white male primarily a patient of Dr. Casper, known history of multiple medical problems including renal transplant in 2004, history of lung cancer and previous lobectomy, history of lung cancer, history of aspiration pneumonia requiring PEG tube placement, history of atrial fibrillation, maintained on anticoagulation therapy, presented to the ER with a few days' history of cough, shortness of breath, and his chest x-ray clearly showed evidence of bilateral infiltrates consistent with aspiration pneumonia. Patient was admitted by Dr. Casper, presently on vancomycin and cefepime. Patient describes cough, cough is productive with thick yellow phlegm. No fever , no chills, no hemoptysis. Patient is maintained on 6 L nasal cannula, and his O2 saturation is 94%. Patient had a kidney transplant in 2004, and this was a cadaver transplant. Maintained on prednisone and Prograf for immunosuppression related to his kidney transplant. Patient also had previous history of tongue cancer status post chemo and radiation therapy. Had previous lung cancer and previous right sided lobectomy. Presently the patient is sitting in bed, comfortable, has mostly symptoms of cough, no fever no chills no hemoptysis no chest pain, no nausea no vomiting no abdominal pain, has a functional PEG tube in place. Denies any dysuria frequency or urgency. Chest x -ray again is consistent with bilateral pneumonia, felt to be aspiration pneumonia unless proven otherwise. The patient is seen again today 09/03/2018 in follow-up on the selective care unit. He is currently resting comfortably in bed. He is awake and alert in no acute distress. His breath. He has a loose nonproductive cough. No chills or night sweats. He is maintaining O2 saturations in the low 90s on 4 L/m per nasal cannula. She's afebrile. Slightly tachycardic. Slightly hypertensive. Blood,urine, sputum and wound cultures are pending. White count 6.8. Hemoglobin 8.8. Creatinine 0.79. Currently on cefepime, vancomycin and azithromycin. He remains nothing by mouth. Receiving PEG tube feedings with Glucerna 1.2. Objective - Vital Signs Vital signs: Vital Signs Temp 98.0 F 09/03/18 08:00 Pulse 108 H 09/03/18 08:15 Resp 18 09/03/18 08:00 BP 152/98 09/03/18 08:00 Pulse Ox 93 L 09/03/18 08:00 Intake & Output 09/02/18 09/03/18 09/03/18 18:59 06:59 18:59 Intake Total 945 535 0988 Output Total 200 500 100 Balance -80 250 901 Weight 61 kg 61.1 kg Intake: Intake, IV Titration 750 1001 Amount Cefepime 2 gm In Sodium 100 Chloride 0.9% 50 ml @ 100 mls/hr IVPB Q8H [facility] Rx#: [id number] Sodium Chloride 0.9% 1, 400 000 ml @ 100 mls/hr IV . BY DURATION [facility] Rx#: [id number] Sodium Chloride 0.9% 1, 0 000 ml @ 100 mls/hr IV . Q10H [facility] Rx#:[id number] Trace (Conc-1Ml/Dose) 1 1001 ml In Sodium Chloride 0.9 % 1,000 ml @ 100 mls/hr IV .BY DURATION [facility] Rx#: [id number] Vancomycin 1,250 mg In 250 Sodium Chloride 0.9% 250 ml @ 125 mls/hr IVPB Q8H [facility] Rx#:[id number] Oral 120 0 Output: Urine 200 500 100 Other: Voiding Method Urinal Urinal # Voids 1 3 - Exam GENERAL: Emaciated thin male who looks older than his stated age and in no acute distress. On 4 L/m per nasal cannula. HEAD: Atraumatic, normocephalic. EYES: Pupils equal round and reactive to light, extraocular movements intact, sclera anicteric, conjunctiva are normal. ENT:nares patent, oropharynx clear without exudates. Moist mucous membranes. NECK: Normal range of motion, supple without lymphadenopathy or JVD, no thyromegaly LUNGS: Breath sounds coarse to auscultation bilaterally and equal. No wheezes rales and minimal rhonchi to the left base. HEART: Regular rate and rhythm without murmurs, rubs or gallops.S1S2 Normal ABDOMEN: Soft, nontender, normoactive bowel sounds. No guarding, no rebound. No masses appreciated. There is a PEG tube in place. EXTREMITIES: Normal range of motion, no pitting or edema. No clubbing or cyanosis. NEUROLOGICAL: Cranial nerves II through XII grossly intact. Dysarthria is noted , gait untested. PSYCH: Normal mood, normal affect. SKIN: Warm, Dry, normal turgor, no rashes or lesions noted. - Labs CBC & Chem 7: 09/03/18 05:31 09/03/18 05:31 Labs: Abnormal Lab Results - Last 24 Hours (Table) 09/02/18 09/02/18 09/02/18 Range/Units 14:19 14:19 14:19 RBC 3.56 L (4.30-5.90) m/uL Hgb 8.7 L (13.0-17.5) gm/dL Hct 29.0 L (39.0-53.0) % MCH 24.5 L (25.0-35.0) pg MCHC 30.1 L (31.0-37.0) g/dL RDW 17.1 H (11.5-15.5) % Lymphocytes # 0.3 L (1.0-4.8) k/uL Sodium (137-145) mmol/L BUN 28 H (9-20) mg/dL Glucose (74-99) mg/dL POC Glucose (mg/dL) (75-99) mg/dL Iron 7 L (65-175) ug/dL Iron Saturation 2.62 L (15.00-50.00) Prealbumin (18.0-42.0) mg/dL Vancomycin Trough ug/mL 09/02/18 09/03/18 09/03/18 Range/Units 21:57 05:31 05:31 RBC (4.30-5.90) m/uL Hgb (13.0-17.5) gm/dL Hct (39.0-53.0) % MCH (25.0-35.0) pg MCHC (31.0-37.0) g/dL RDW (11.5-15.5) % Lymphocytes # (1.0-4.8) k/uL Sodium (137-145) mmol/L BUN (9-20) mg/dL Glucose (74-99) mg/dL POC Glucose (mg/dL) 143 H (75-99) mg/dL Iron (65-175) ug/dL Iron Saturation (15.00-50.00) Prealbumin 15.0 L (18.0-42.0) mg/dL Vancomycin Trough 46.7 H* ug/mL 09/03/18 09/03/18 09/03/18 Range/Units 05:31 05:31 06:19 RBC 3.58 L (4.30-5.90) m/uL Hgb 8.8 L (13.0-17.5) gm/dL Hct 28.8 L (39.0-53.0) % MCH 24.5 L (25.0-35.0) pg MCHC 30.5 L (31.0-37.0) g/dL RDW 16.8 H (11.5-15.5) % Lymphocytes # 0.3 L (1.0-4.8) k/uL Sodium 136 L (137-145) mmol/L BUN 29 H (9-20) mg/dL Glucose 106 H (74-99) mg/dL POC Glucose (mg/dL) 127 H (75-99) mg/dL Iron (65-175) ug/dL Iron Saturation (15.00-50.00) Prealbumin (18.0-42.0) mg/dL Vancomycin Trough ug/mL 09/03/18 Range/Units 11:19 RBC (4.30-5.90) m/uL Hgb (13.0-17.5) gm/dL Hct (39.0-53.0) % MCH (25.0-35.0) pg MCHC (31.0-37.0) g/dL RDW (11.5-15.5) % Lymphocytes # (1.0-4.8) k/uL Sodium (137-145) mmol/L BUN (9-20) mg/dL Glucose (74-99) mg/dL POC Glucose (mg/dL) 147 H (75-99) mg/dL Iron (65-175) ug/dL Iron Saturation (15.00-50.00) Prealbumin (18.0-42.0) mg/dL Vancomycin Trough ug/mL Microbiology - Last 24 Hours (Table) 09/01/18 22:30 Urine Culture - Final Urine,Voided 09/01/18 20:56 Blood Culture - Preliminary Blood No Growth after 24 hours 09/02/18 09:05 Gram Stain - Preliminary Abdomen Wound Culture - Preliminary 09/02/18 01:13 Gram Stain - Preliminary Sputum Sputum Culture - Preliminary Assessment and Plan Assessment: Impression: 1 acute aspiration pneumonia 2 chronic atrial fibrillation 3 history of diastolic congestive heart failure, however his chest x-ray is not consistent with pulmonary edema. 4 history of lung cancer and previous lobectomy 5 history of lung cancer and previous radiation treatment 6 medical debility, a shunt is mostly bedridden, uses a walker to ambulate around his bed. 7 history of kidney transplant maintained on immunosuppressive therapy/Prograf and prednisone. 8 occasional hemoptysis secondary to pneumonia and the fact that the patient is on anticoagulation therapy. No need to consider bronchoscopy at this point. Recommendation: The patient was seen and evaluated by Dr. Jean. He is improved today as compared to yesterday. He'll remain on PEG feedings only. Nothing by mouth. Continue antibiotics per ID recommendations. Cultures are pending. Repeat a chest x-ray in the a.m. Titrate down the FiO2. We'll continue to follow. I, the cosigning physician, performed a history & physical examination of the patient. Lungs sounds with few scattered rhonchi more so on the right lung. Maintaining good O2 saturations in the 90s on 4 L/m per nasal cannula. I discussed the assessment and plan of care with my nurse practitioner, Quynh Reyes. I attest to the above note as dictated by her.
--- NOTE | 2018-09-03 14:32 | P.PN ---
Subjective Progress Note Date: 09/03/18 Seen and examined for the follow-up of renal transplant. Feels better no nausea vomiting or diarrhea. Objective - Vital Signs Vital signs: Vital Signs Temp 98.0 F 09/03/18 08:00 Pulse 108 H 09/03/18 08:15 Resp 18 09/03/18 08:00 BP 152/98 09/03/18 08:00 Pulse Ox 93 L 09/03/18 08:00 Intake & Output 09/02/18 09/03/18 09/03/18 18:59 06:59 18:59 Intake Total 360 318 2157 Output Total 200 500 100 Balance -80 250 901 Weight 61 kg 61.1 kg Intake: Intake, IV Titration 750 1001 Amount Cefepime 2 gm In Sodium 100 Chloride 0.9% 50 ml @ 100 mls/hr IVPB Q8H [facility] Rx#: [id number] Sodium Chloride 0.9% 1, 400 000 ml @ 100 mls/hr IV . BY DURATION [facility] Rx#: [id number] Sodium Chloride 0.9% 1, 0 000 ml @ 100 mls/hr IV . Q10H [facility] Rx#:[id number] Trace (Conc-1Ml/Dose) 1 1001 ml In Sodium Chloride 0.9 % 1,000 ml @ 100 mls/hr IV .BY DURATION [facility] Rx#: [id number] Vancomycin 1,250 mg In 250 Sodium Chloride 0.9% 250 ml @ 125 mls/hr IVPB Q8H [facility] Rx#:[id number] Oral 120 0 Output: Urine 200 500 100 Other: Voiding Method Urinal Urinal # Voids 1 3 - Exam No acute distress S1-S2 heard Lungs clear No edema - Labs CBC & Chem 7: 09/03/18 05:31 09/03/18 05:31 Labs: Abnormal Lab Results - Last 24 Hours (Table) 09/02/18 09/02/18 09/02/18 Range/Units 14:19 14:19 14:19 RBC 3.56 L (4.30-5.90) m/uL Hgb 8.7 L (13.0-17.5) gm/dL Hct 29.0 L (39.0-53.0) % MCH 24.5 L (25.0-35.0) pg MCHC 30.1 L (31.0-37.0) g/dL RDW 17.1 H (11.5-15.5) % Lymphocytes # 0.3 L (1.0-4.8) k/uL Sodium (137-145) mmol/L BUN 28 H (9-20) mg/dL Glucose (74-99) mg/dL POC Glucose (mg/dL) (75-99) mg/dL Iron 7 L (65-175) ug/dL Iron Saturation 2.62 L (15.00-50.00) Prealbumin (18.0-42.0) mg/dL Vancomycin Trough ug/mL 09/02/18 09/03/18 09/03/18 Range/Units 21:57 05:31 05:31 RBC (4.30-5.90) m/uL Hgb (13.0-17.5) gm/dL Hct (39.0-53.0) % MCH (25.0-35.0) pg MCHC (31.0-37.0) g/dL RDW (11.5-15.5) % Lymphocytes # (1.0-4.8) k/uL Sodium (137-145) mmol/L BUN (9-20) mg/dL Glucose (74-99) mg/dL POC Glucose (mg/dL) 143 H (75-99) mg/dL Iron (65-175) ug/dL Iron Saturation (15.00-50.00) Prealbumin 15.0 L (18.0-42.0) mg/dL Vancomycin Trough 46.7 H* ug/mL 09/03/18 09/03/18 09/03/18 Range/Units 05:31 05:31 06:19 RBC 3.58 L (4.30-5.90) m/uL Hgb 8.8 L (13.0-17.5) gm/dL Hct 28.8 L (39.0-53.0) % MCH 24.5 L (25.0-35.0) pg MCHC 30.5 L (31.0-37.0) g/dL RDW 16.8 H (11.5-15.5) % Lymphocytes # 0.3 L (1.0-4.8) k/uL Sodium 136 L (137-145) mmol/L BUN 29 H (9-20) mg/dL Glucose 106 H (74-99) mg/dL POC Glucose (mg/dL) 127 H (75-99) mg/dL Iron (65-175) ug/dL Iron Saturation (15.00-50.00) Prealbumin (18.0-42.0) mg/dL Vancomycin Trough ug/mL 09/03/18 Range/Units 11:19 RBC (4.30-5.90) m/uL Hgb (13.0-17.5) gm/dL Hct (39.0-53.0) % MCH (25.0-35.0) pg MCHC (31.0-37.0) g/dL RDW (11.5-15.5) % Lymphocytes # (1.0-4.8) k/uL Sodium (137-145) mmol/L BUN (9-20) mg/dL Glucose (74-99) mg/dL POC Glucose (mg/dL) 147 H (75-99) mg/dL Iron (65-175) ug/dL Iron Saturation (15.00-50.00) Prealbumin (18.0-42.0) mg/dL Vancomycin Trough ug/mL Microbiology - Last 24 Hours (Table) 09/01/18 22:30 Urine Culture - Final Urine,Voided 09/01/18 20:56 Blood Culture - Preliminary Blood No Growth after 24 hours 09/02/18 09:05 Gram Stain - Preliminary Abdomen Wound Culture - Preliminary 09/02/18 01:13 Gram Stain - Preliminary Sputum Sputum Culture - Preliminary Assessment and Plan Assessment: #1 status post DDA 2004 renal function stable at baseline #2 bilateral pneumonia on antibiotics #3 hypothyroidism #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 Currently on CellCept and prednisone. #2 pending Prograf level. Currently on hold. #3 repeat labs in the morning
[2018-09-03 16:06] LABS: Glucose,Whole Blood 87 mg/dL (75-99)
[2018-09-03 21:01] LABS: Glucose,Whole Blood 109 mg/dL (75-99)
[2018-09-03] MEDS: AZITHROMYCIN 500 MG TAB PO SCH (22:19)
[2018-09-04] MEDS ORDERED: VANCOMYCIN 1,250 MG in SODIUM CHLORIDE 0.9% 250 ML IVPB SCH (02:00)
[2018-09-04] MEDS: SODIUM CHLORIDE 0.9% 1,000 ML IV SCH ×3 (02:47→20:45)
[2018-09-04] MEDS: LORazepam 0.5 MG TAB PO PRN (04:56)
[2018-09-04] MEDS: APIXABAN 5 MG TAB PO SCH ×2 (04:57→16:06)
[2018-09-04 06:12] LABS: Anisocytosis Slight; Basophils % (A) 0 %; Eosinophils # (A) 0.1 k/uL (0-0.7); Eosinophils % (A) 1 %; HCT 28.2 % (39.0-53.0); HGB 8.6 gm/dL (13.0-17.5); Hypochromasia Marked; Lymphocytes # (A) 0.3 k/uL (1.0-4.8); Lymphocytes % (A) 5 %; MCH 24.6 pg (25.0-35.0); MCHC 30.5 g/dL (31.0-37.0); MCV 80.6 fL (80.0-100.0); Mean Platelet Volume 6.9; Microcytosis Slight; Monocytes # (A) 0.4 k/uL (0-1.0); Monocytes % (A) 5 %; Neutrophils % (A) 88 %; Platelet Count 251 k/uL (150-450); RDW 16.8 % (11.5-15.5); WBC 6.8 k/uL (3.8-10.6)
[2018-09-04 06:13] LABS: Glucose,Whole Blood 125 mg/dL (75-99)
[2018-09-04] MEDS: INSULIN ASPART 100 UNIT/ML 1 ML 10 ML VIAL SQ SCH ×4 (06:17→20:44)
[2018-09-04 06:22] LABS: ALT 30 U/L (21-72); AST 34 U/L (17-59); Albumin 2.7 g/dL (3.5-5.0); Alkaline Phosphatase 72 U/L (38-126); Anion Gap 11 mmol/L; Blood Urea Nitrogen 27 mg/dL (9-20); Carbon Dioxide 20 mmol/L (22-30); Chloride 105 mmol/L (98-107); Glucose 117 mg/dL (74-99); Potassium 4.7 mmol/L (3.5-5.1); Sodium 136 mmol/L (137-145); Total Bilirubin 0.6 mg/dL (0.2-1.3); Total Protein 5.2 g/dL (6.3-8.2)
[2018-09-04] MEDS: IPRATROPIUM-ALBUTEROL 3 ML NEB INHALATION SCH ×4 (07:19→20:02)
--- NOTE | 2018-09-04 07:39 | XR ---
EXAMINATION TYPE: XR chest 1V portable DATE OF EXAM: 09/04/2018 HISTORY: Shortness of breath. COMPARISON: 09/02/2018 TECHNIQUE: Single view of the chest is submitted. FINDINGS: Continued bilateral airspace infiltrates persist essentially unchanged. The heart is stable. Hilar and mediastinal structures are within normal limits. Degenerative changes are seen of the dorsal spine. IMPRESSION: 1. Stable chest continued follow-up advised.
--- NOTE | 2018-09-04 08:14 | CONS ---
CONSULTATION DATE OF SERVICE: 09/03/2018. REASON FOR CONSULTATION: Aspiration pneumonia. HISTORY OF PRESENT ILLNESS: The patient is a 68-year-old male with a past medical history significant for cadaveric renal transplant in 2004 for which the patient is currently on immunosuppressive medication. The patient also has a history of lung cancer status post lobectomy and history of aspiration pneumonia. Currently being fed through a PEG tube. The patient has been brought into the ER with chief complaint of increasing shortness of breath and cough. His symptoms have been going on for the last 2 to 3 days before he presented to hospital. The patient denies significant URI symptoms. The patient did have a cough bringing up some yellow sputum but no hemoptysis. Denies any chest pain. No nausea, no vomiting. No abdominal pain. No diarrhea. With these symptoms, the patient has been evaluated by the ER physician on arrival to the ER. The patient has been afebrile. Highest temperature has been 99.7. He was noticed to have elevated white count of 10.8. His creatinine has been normal. He has been treated with vancomycin and cefepime, however, the vanco trough has been elevated at 46.7. Influenza serology has been negative. Chest x-ray did show diffuse infiltrates suggestive of extensive pneumonia. REVIEW OF SYSTEMS: Positive points have been mentioned in HPI. The rest of the system have been negative. 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 PAST SURGICAL HISTORY: Appendectomy, bilateral hip arthroplasty, tonsillectomy, PEG tube placement. SOCIAL HISTORY: Remote history of smoking. No drinking or drug use. FAMILY HISTORY: No pertinent findings noticed. ALLERGIES: No known drug allergies. MEDICATIONS: Currently patient is on: 1. Cefepime. 2. Vancomycin. 3. Hamilton. 4. Ventolin. 5. DuoNeb. 6. . 7. Eliquis. 8. Cardizem. 9. Colace. 10.Pepcid. 11.NovoLog. 12.Ativan. 13.Lopressor. 14.Theragran. 15.Mycophenolate. 16.Prednisone. 17.Flomax. PHYSICAL EXAMINATION: Blood pressure is 135/90 with a pulse of 106, temperature 99.7, he is 92% on 4 L nasal cannula. GENERAL DESCRIPTION: An elderly male lying in bed in no distress. No tachypnea or accessory muscle of respiration use. HEENT: Shows slight pallor. No scleral icterus. Oral mucosa is dry. No pharyngeal erythema or thrush. NECK: Trachea central. No thyromegaly. LUNG: Unlabored breathing, decreased breath sounds in the bases. No wheeze. HEART: S1, S2. Regular rate and rhythm. ABDOMEN: Soft, no tenderness. No guarding or rigidity. EXTREMITIES: No edema of the feet. SKIN: No rash or mass palpable. NEUROLOGIC: The patient is awake, alert, oriented x3. Mood and affect normal. LABS: Hemoglobin 8.8, white count 6.8. BUN of 29, creatinine 0.7. Endocrine has been normal. Blood culture obtained currently pending. Influenza serology was negative. Chest x-ray with extensive pneumonia. DIAGNOSTIC IMPRESSION AND PLAN: 1. Patient admitted to the hospital with fever and shortness of breath. He did also have a cough productive of some yellow sputum. This patient does have a history of renal transplant and has been on immunosuppressive medication with concern for possible resistant gram-positive or gram-negative pneumonia. 2. The patient did have a history of renal transplant with significantly elevated vancomycin level and concern for nephrotoxicity-associated to vancomycin. PLAN: 1. Discontinue vancomycin and cefepime. 2. Will start the patient on Zosyn 3.375 g every 8 hours and Zyvox 600 IV every 12 hours. 3. We will follow up on his clinical condition as well as cultures to further adjust medication if needed. Thank you for this consultation. We will follow this patient along with you. MMODL / IJN: [id number] /
[2018-09-04] MEDS: DOCUSATE 100 MG CAP PO SCH ×2 (10:51→11:02)
[2018-09-04] MEDS: FAMOTIDINE 20 MG TAB PO SCH (10:59)
[2018-09-04] MEDS: DILTIAZEM ORAL 30 MG TAB PO SCH ×3 (10:59→20:41)
[2018-09-04] MEDS: THIAMINE 100 MG TAB PO SCH (10:59)
[2018-09-04] MEDS: MULTIVITAMINS, THERA 1 EACH TAB PO SCH (10:59)
[2018-09-04] MEDS: LORazepam 1 MG TAB PO SCH ×3 (10:59→21:40)
[2018-09-04] MEDS: predniSONE 10 MG TAB PO SCH (11:00)
[2018-09-04] MEDS: FOLIC ACID 1 MG TAB PO SCH (11:00)
[2018-09-04] MEDS: PIPERACILLIN-TAZOBACTAM 3.375 GM in SODIUM CHLORIDE 0.9% 100 ML IVPB SCH ×3 (11:00→23:12)
[2018-09-04] MEDS: ALLOPURINOL 100 MG TAB PO SCH (11:00)
[2018-09-04] MEDS: LINEZOLID 600 MG in DEXTROSE/WATER 1 300ML.BAG IVPB SCH ×2 (11:01→20:45)
[2018-09-04] MEDS: MYCOPHENOLATE SODIUM 360 MG PO SCH ×2 (11:02→20:41)
[2018-09-04] MEDS: HYDROcodone/APAP 15 ML SOLUTION PEG/G-TUBE PRN (11:05)
--- NOTE | 2018-09-04 11:23 | P.PN ---
Subjective This 68-year-old white male although the practice. 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 He is medically debilitated after back surgery. He has a history of atrial fibrillation on anticoagulation and PEG tube feedings due to aphasia. Apparently for the past several days he's been having increasing cough and shortness of breath. His caregiver at home and call our office notifying us he been eating. He has a history of kidney transplant 2005 is on immunosuppression. 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 Is currently on prednisone and Prograf for immunosuppression or his kidney transplant. Nursing staff report that he had aspirated while they're trying to give him his meds and feed him. He is currently nothing by mouth with tube feeds only at this time. Nursing staff also reported hemoptysis with his coughing. He recently had lumbar back surgery in the summer of 2017. He reports he still is only able to ambulate with a walker due to pain. He was in [facility] up until 2 weeks ago. 09/03/2018: Overnight patient had pain and was started on liquid hydrocodone through PEG tube. He remains on antibiotics of azithromycin, cefepime, and vancomycin. Nephrology had discontinued one of his immunosuppressants due to his pneumonia. Pulmonology has seen the patient and there is no current need for bronchoscopy at this point. Cardiology recommended to continue his current medications. They're monitoring his atrial fibrillation and he remains on Elequis. He has had some faster heart rates, borderlining RVR with A. fib. Staff are monitoring this. He denies any chest pains or pressures this morning. He denies any nausea or vomiting. He is only had ice chips overnight. He did get a second dose of pain medication approximately 9 AM this morning. His is at bedside and case discussed with her. 09/04/2018: Patient continues to complain of some dry mouth since being made nothing by mouth. His antibiotics were changed by infectious disease to Zyvox and Zosyn. He states today that he is "not feeling well ". He denies any chest pains, pressures. Denies any nausea or vomiting. Does have some mild shortness of breath. Yesterday, Cardiology increased his metoprolol 25 mg 3 times a day due to tachycardia. This a.m. thogh, his heart rate was found to be in the 130s. Objective - Vital Signs Vital signs: Vital Signs Temp 98.1 F 09/04/18 04:00 Pulse 104 H 09/04/18 07:29 Resp 20 09/04/18 04:00 BP 165/95 09/04/18 04:00 Pulse Ox 92 L 09/04/18 04:00 Intake & Output 09/03/18 09/04/18 09/04/18 18:59 06:59 18:59 Intake Total 1351 2051 Output Total 100 Balance 1251 2051 Weight 61.1 kg Intake: Intake, IV Titration 1001 1001 Amount Trace (Conc-1Ml/Dose) 1 1001 1001 ml In Sodium Chloride 0.9 % 1,000 ml @ 100 mls/hr IV .BY DURATION [facility] Rx#: [id number] Tube Feeding 350 1050 Output: Urine 100 Other: Voiding Method Urinal Urinal # Voids 4 1 # Bowel Movements 0 - Exam GENERAL: Emaciated thin male who looks older than his stated age and in no acute distress. NECK: Normal range of motion, supple without lymphadenopathy or JVD, no thyromegaly LUNGS: Breath sounds coarse to auscultation bilaterally and equal. No wheezes rales and minimal rhonchi to the left base. HEART: Tachycardic rate and somewhat irregular rhythm consistent with his atrial fibrillation , trace systolic murmur, no rubs or gallops.S1S2 Normal ABDOMEN: Soft, nontender, normoactive bowel sounds. No guarding, no rebound. No masses appreciated. There is a PEG tube in place. EXTREMITIES: Normal range of motion, no pitting or edema. No clubbing or cyanosis. He has had known back surgery and has some weakness due to this. NEUROLOGICAL: Cranial nerves II through XII grossly intact. Dysarthria is noted , gait untested. PSYCH: Normal mood, normal affect. SKIN: Warm, Dry, normal turgor, no rashes or lesions noted. - Labs CBC & Chem 7: 09/04/18 05:23 09/04/18 05:23 Labs: Abnormal Lab Results - Last 24 Hours (Table) 09/03/18 09/03/18 09/04/18 Range/Units 11:19 20:58 05:23 RBC 3.50 L (4.30-5.90) m/uL Hgb 8.6 L (13.0-17.5) gm/dL Hct 28.2 L (39.0-53.0) % MCH 24.6 L (25.0-35.0) pg MCHC 30.5 L (31.0-37.0) g/dL RDW 16.8 H (11.5-15.5) % Lymphocytes # 0.3 L (1.0-4.8) k/uL Sodium (137-145) mmol/L Carbon Dioxide (22-30) mmol/L BUN (9-20) mg/dL Glucose (74-99) mg/dL POC Glucose (mg/dL) 147 H 109 H (75-99) mg/dL Total Protein (6.3-8.2) g/dL Albumin (3.5-5.0) g/dL 09/04/18 09/04/18 Range/Units 05:23 06:11 RBC (4.30-5.90) m/uL Hgb (13.0-17.5) gm/dL Hct (39.0-53.0) % MCH (25.0-35.0) pg MCHC (31.0-37.0) g/dL RDW (11.5-15.5) % Lymphocytes # (1.0-4.8) k/uL Sodium 136 L (137-145) mmol/L Carbon Dioxide 20 L (22-30) mmol/L BUN 27 H (9-20) mg/dL Glucose 117 H (74-99) mg/dL POC Glucose (mg/dL) 125 H (75-99) mg/dL Total Protein 5.2 L (6.3-8.2) g/dL Albumin 2.7 L (3.5-5.0) g/dL Microbiology - Last 24 Hours (Table) 09/01/18 20:56 Blood Culture - Preliminary Blood No Growth after 48 hours 09/01/18 22:30 Urine Culture - Final Urine,Voided Assessment and Plan (1) Aspiration pneumonia Current Visit: Yes Status: Acute Code(s): J69.0 - PNEUMONITIS DUE TO INHALATION OF FOOD AND VOMIT SNOMED Code(s): 152573169 (2) Atrial fibrillation Current Visit: Yes Status: Acute Code(s): I48.91 - UNSPECIFIED ATRIAL FIBRILLATION SNOMED Code(s): 12914627 (3) Diastolic CHF Current Visit: Yes Status: Acute Code(s): I50.30 - UNSPECIFIED DIASTOLIC ( CONGESTIVE) HEART FAILURE SNOMED Code(s): 469292751 (4) PEG (percutaneous endoscopic gastrostomy) status Current Visit: Yes Status: Acute Code(s): Z93.1 - GASTROSTOMY STATUS SNOMED Code(s): 764616970 (5) Immunosuppression due to drug therapy Current Visit: Yes Status: Acute Code(s): Z79.899 - OTHER TRAVEL FREIGHT AND PASSENGER AGENT (CURRENT ) DRUG THERAPY SNOMED Code(s): 26638814 (6) H/O: lung cancer Current Visit: Yes Status: Acute Code(s): Z85.118 - PERSONAL HISTORY OF MALIGNANT NEOPLASM OF BRONCHUS AND LUNG SNOMED Code(s): 587712013 (7) H/O tongue cancer Current Visit: Yes Status: Acute Code(s): Z85.810 - PERSONAL HISTORY OF MALIGNANT NEOPLASM OF TONGUE SNOMED Code(s): 399265989 (8) Debility Current Visit: Yes Status: Acute Code(s): R53.81 - OTHER MALAISE SNOMED Code(s): 24934067 (9) History of kidney transplant Current Visit: No Status: Acute Code(s): Z94.0 - KIDNEY TRANSPLANT STATUS SNOMED Code(s): 353951324 (10) Hemoptysis, unspecified Current Visit: Yes Status: Acute Code(s): R04.2 - HEMOPTYSIS SNOMED Code(s ): 58160099 (11) Anticoagulant long-term use Current Visit: Yes Status: Acute Code(s): Z79.01 - TRAVEL FREIGHT AND PASSENGER AGENT (CURRENT) USE OF ANTICOAGULANTS SNOMED Code(s): 539332063 (12) Microcytic anemia Current Visit: Yes Status: Acute Code(s): D50.9 - IRON DEFICIENCY ANEMIA, UNSPECIFIED SNOMED Code(s): 729183081 (13) Low back pain Current Visit: Yes Status: Acute Code(s): M54.5 - LOW BACK PAIN SNOMED Code(s): 315249987 (14) H/O lumbosacral spine surgery Current Visit: Yes Status: Acute Code(s): Z98.890 - OTHER SPECIFIED POSTPROCEDURAL STATES SNOMED Code(s): 497931686 (15) Atrial fibrillation with RVR Current Visit: Yes Status: Acute Code(s): I48.91 - UNSPECIFIED ATRIAL FIBRILLATION SNOMED Code(s): 754786341634652 Plan: Steam Turbine Operator recommendations from ID, nephrology, pulmonology, and cardiology were reviewed. Cardiology regarding increased his metoprolol, I'll ask him to readdress this as his heart rate is currently in the 130s. He'll remain nothing by mouth except for ice chips orally and continue tube feed via PEG tube. He will continue on PEG tube feeds ordered by dietary. Continue physical therapy. He'll be reevaluated next 24 hours.Repeat labs in a.m.
[2018-09-04 11:38] LABS: Glucose,Whole Blood 167 mg/dL (75-99)
--- NOTE | 2018-09-04 11:42 | PN ---
PROGRESS NOTE Mr. Meyer is a 68-year-old male with history of chronic persistent atrial fibrillation who presented with symptoms progressive dyspnea, was found to have evidence of aspiration pneumonia. He continues to be in atrial fibrillation with episode of rapid ventricular response. He continues to have phlegm. He denies any chest pain. He denies any dizziness or palpitation. He is not aware of the rapid ventricular response. He is receiving feeding through a PEG tube. He continues to be at this time on diltiazem 30 mg 3 times a day, Eliquis 5 mg twice a day, metoprolol 25 mg 3 times a day. PHYSICAL EXAMINATION: Blood pressure 160/90 with a heart rate in the 100s. LUNGS: With scattered rhonchi. HEART: Irregular regular S1, S2. No S3. No rub. ABDOMEN: Soft. PEG tube in place. No organomegaly. EXTREMITIES: No edema. LAB DATA: Revealed BUN and creatinine 27 and 0.7, hemoglobin of 8.6. IMPRESSION: 1. Evidence of aspiration pneumonia. 2. Atrial fibrillation with rapid ventricular response. 3. History of prior malignancy. 4. Status post recent back surgery. RECOMMENDATION: I will increase the dose of his beta rigoberto. Continue his medical regimen. Continue on the antibiotics and depending on his progress further recommendation will be made. MMODL / IJN: [id number] /
--- NOTE | 2018-09-04 15:08 | P.PN ---
Subjective Progress Note Date: 09/04/18 Principal diagnosis: Acute aspiration pneumonia This is a 68-year-old white male primarily a patient of Dr. Casper, known history of multiple medical problems including renal transplant in 2004, history of lung cancer and previous lobectomy, history of lung cancer, history of aspiration pneumonia requiring PEG tube placement, history of atrial fibrillation, maintained on anticoagulation therapy, presented to the ER with a few days' history of cough, shortness of breath, and his chest x-ray clearly showed evidence of bilateral infiltrates consistent with aspiration pneumonia. Patient was admitted by Dr. Casper, presently on vancomycin and cefepime. Patient describes cough, cough is productive with thick yellow phlegm. No fever , no chills, no hemoptysis. Patient is maintained on 6 L nasal cannula, and his O2 saturation is 94%. Patient had a kidney transplant in 2004, and this was a cadaver transplant. Maintained on prednisone and Prograf for immunosuppression related to his kidney transplant. Patient also had previous history of tongue cancer status post chemo and radiation therapy. Had previous lung cancer and previous right sided lobectomy. Presently the patient is sitting in bed, comfortable, has mostly symptoms of cough, no fever no chills no hemoptysis no chest pain, no nausea no vomiting no abdominal pain, has a functional PEG tube in place. Denies any dysuria frequency or urgency. Chest x -ray again is consistent with bilateral pneumonia, felt to be aspiration pneumonia unless proven otherwise. The patient is seen again today 09/03/2018 in follow-up on the selective care unit. He is currently resting comfortably in bed. He is awake and alert in no acute distress. His breath. He has a loose nonproductive cough. No chills or night sweats. He is maintaining O2 saturations in the low 90s on 4 L/m per nasal cannula. She's afebrile. Slightly tachycardic. Slightly hypertensive. Blood,urine, sputum and wound cultures are pending. White count 6.8. Hemoglobin 8.8. Creatinine 0.79. Currently on cefepime, vancomycin and azithromycin. He remains nothing by mouth. Receiving PEG tube feedings with Glucerna 1.2. Patient was seen today on 09/04/2018, continues to have intermittent episodes of cough, some shortness of breath, according to the he looks worse today than he was yesterday. Chest x-ray continues to show bilateral diffuse infiltrates, consistent with aspiration pneumonia, and it is concerning that the patient may have to be bronchoscoped sometime next week assuming he doesn't respond to antibiotics. His antibiotics have been switched to Zyvox and Zosyn by infectious disease, CBC showed no leukocytosis today, hemoglobin is 8.6, WBC count is 6.8. Electrolytes and renal profile are relatively normal. Bicarb is 20. Again chest x-ray is a bit worse compared to yesterday. Bilateral airspace disease consistent with aspiration pneumonia. Objective - Vital Signs Vital signs: Vital Signs Temp 98.1 F 09/04/18 04:00 Pulse 137 H 09/04/18 14:56 Resp 16 09/04/18 14:56 BP 134/85 09/04/18 12:00 Pulse Ox 94 L 09/04/18 12:00 Intake & Output 09/03/18 09/04/18 09/04/18 18:59 06:59 18:59 Intake Total 1351 2051 Output Total 100 Balance 1251 2051 Weight 61.1 kg Intake: Intake, IV Titration 1001 1001 Amount Trace (Conc-1Ml/Dose) 1 1001 1001 ml In Sodium Chloride 0.9 % 1,000 ml @ 100 mls/hr IV .BY DURATION [facility] Rx#: [id number] Tube Feeding 350 1050 Output: Urine 100 Other: Voiding Method Urinal Urinal Urinal # Voids 4 1 # Bowel Movements 0 - Exam GENERAL: Emaciated thin male who looks older than his stated age and in no acute distress. HEAD: Atraumatic, normocephalic. EYES: Pupils equal round and reactive to light, extraocular movements intact, sclera anicteric, conjunctiva are normal. ENT:nares patent, oropharynx clear without exudates. Moist mucous membranes. NECK: Normal range of motion, supple without lymphadenopathy or JVD, no thyromegaly LUNGS: Breath sounds coarse to auscultation bilaterally and equal. No wheezes rales and minimal rhonchi to the left base. HEART: Regular rate and rhythm without murmurs, rubs or gallops.S1S2 Normal ABDOMEN: Soft, nontender, normoactive bowel sounds. No guarding, no rebound. No masses appreciated. There is a PEG tube in place. EXTREMITIES: Normal range of motion, no pitting or edema. No clubbing or cyanosis. NEUROLOGICAL: Cranial nerves II through XII grossly intact. Dysarthria is noted , gait untested. PSYCH: Normal mood, normal affect. SKIN: Warm, Dry, normal turgor, no rashes or lesions noted. - Labs CBC & Chem 7: 09/04/18 05:23 09/04/18 05:23 Labs: Abnormal Lab Results - Last 24 Hours (Table) 09/03/18 09/04/18 09/04/18 Range/Units 20:58 05:23 05:23 RBC 3.50 L (4.30-5.90) m/uL Hgb 8.6 L (13.0-17.5) gm/dL Hct 28.2 L (39.0-53.0) % MCH 24.6 L (25.0-35.0) pg MCHC 30.5 L (31.0-37.0) g/dL RDW 16.8 H (11.5-15.5) % Lymphocytes # 0.3 L (1.0-4.8) k/uL Sodium 136 L (137-145) mmol/L Carbon Dioxide 20 L (22-30) mmol/L BUN 27 H (9-20) mg/dL Glucose 117 H (74-99) mg/dL POC Glucose (mg/dL) 109 H (75-99) mg/dL Total Protein 5.2 L (6.3-8.2) g/dL Albumin 2.7 L (3.5-5.0) g/dL 09/04/18 09/04/18 Range/Units 06:11 11:36 RBC (4.30-5.90) m/uL Hgb (13.0-17.5) gm/dL Hct (39.0-53.0) % MCH (25.0-35.0) pg MCHC (31.0-37.0) g/dL RDW (11.5-15.5) % Lymphocytes # (1.0-4.8) k/uL Sodium (137-145) mmol/L Carbon Dioxide (22-30) mmol/L BUN (9-20) mg/dL Glucose (74-99) mg/dL POC Glucose (mg/dL) 125 H 167 H (75-99) mg/dL Total Protein (6.3-8.2) g/dL Albumin (3.5-5.0) g/dL Microbiology - Last 24 Hours (Table) 09/02/18 09:05 Gram Stain - Final Abdomen Wound Culture - Final 09/02/18 01:13 Gram Stain - Final Sputum Sputum Culture - Final 09/01/18 20:56 Blood Culture - Preliminary Blood No Growth after 48 hours 09/01/18 22:30 Urine Culture - Final Urine,Voided Assessment and Plan Assessment: Impression: 1 acute aspiration pneumonia 2 chronic atrial fibrillation 3 history of diastolic congestive heart failure, however his chest x-ray is not consistent with pulmonary edema. 4 history of lung cancer and previous lobectomy 5 history of lung cancer and previous radiation treatment 6 medical debility, a shunt is mostly bedridden, uses a walker to ambulate around his bed. 7 history of kidney transplant maintained on immunosuppressive therapy/Prograf and prednisone. 8 occasional hemoptysis secondary to pneumonia and the fact that the patient is on anticoagulation therapy. No need to consider bronchoscopy at this point. Recommendation: Continue present course of antibiotics, no need for bronchoscopy at this point, antibiotics were switched to Zyvox and Zosyn, patient was seen by infectious disease, I have explained to the that if he does not improve much, we may seriously consider bronchoscopy and lavage of both lungs. This will be decided upon in the next couple of days. In the meantime continue antibiotics and present supportive care measures. Time with Patient: Less than 30
--- NOTE | 2018-09-04 16:12 | P.PN ---
Subjective Progress Note Date: 09/04/18 Seen and examined for the follow-up of renal transplant. Feels better no nausea vomiting or diarrhea. Objective - Vital Signs Vital signs: Vital Signs Temp 98.1 F 09/04/18 04:00 Pulse 120 H 09/04/18 15:58 Resp 16 09/04/18 14:56 BP 134/85 09/04/18 12:00 Pulse Ox 94 L 09/04/18 12:00 Intake & Output 09/03/18 09/04/18 09/04/18 18:59 06:59 18:59 Intake Total 1351 2051 Output Total 100 Balance 1251 2051 Weight 61.1 kg Intake: Intake, IV Titration 1001 1001 Amount Trace (Conc-1Ml/Dose) 1 1001 1001 ml In Sodium Chloride 0.9 % 1,000 ml @ 100 mls/hr IV .BY DURATION [facility] Rx#: [id number] Tube Feeding 350 1050 Output: Urine 100 Other: Voiding Method Urinal Urinal Urinal # Voids 4 1 # Bowel Movements 0 - Exam No acute distress S1-S2 heard Lungs clear No edema - Labs CBC & Chem 7: 09/04/18 05:23 09/04/18 05:23 Labs: Abnormal Lab Results - Last 24 Hours (Table) 09/03/18 09/04/18 09/04/18 Range/Units 20:58 05:23 05:23 RBC 3.50 L (4.30-5.90) m/uL Hgb 8.6 L (13.0-17.5) gm/dL Hct 28.2 L (39.0-53.0) % MCH 24.6 L (25.0-35.0) pg MCHC 30.5 L (31.0-37.0) g/dL RDW 16.8 H (11.5-15.5) % Lymphocytes # 0.3 L (1.0-4.8) k/uL Sodium 136 L (137-145) mmol/L Carbon Dioxide 20 L (22-30) mmol/L BUN 27 H (9-20) mg/dL Glucose 117 H (74-99) mg/dL POC Glucose (mg/dL) 109 H (75-99) mg/dL Total Protein 5.2 L (6.3-8.2) g/dL Albumin 2.7 L (3.5-5.0) g/dL 09/04/18 09/04/18 Range/Units 06:11 11:36 RBC (4.30-5.90) m/uL Hgb (13.0-17.5) gm/dL Hct (39.0-53.0) % MCH (25.0-35.0) pg MCHC (31.0-37.0) g/dL RDW (11.5-15.5) % Lymphocytes # (1.0-4.8) k/uL Sodium (137-145) mmol/L Carbon Dioxide (22-30) mmol/L BUN (9-20) mg/dL Glucose (74-99) mg/dL POC Glucose (mg/dL) 125 H 167 H (75-99) mg/dL Total Protein (6.3-8.2) g/dL Albumin (3.5-5.0) g/dL Microbiology - Last 24 Hours (Table) 09/02/18 09:05 Gram Stain - Final Abdomen Wound Culture - Final 09/02/18 01:13 Gram Stain - Final Sputum Sputum Culture - Final 09/01/18 20:56 Blood Culture - Preliminary Blood No Growth after 48 hours 09/01/18 22:30 Urine Culture - Final Urine,Voided Assessment and Plan Assessment: #1 status post DDA 2004 renal function stable at baseline #2 bilateral pneumonia on antibiotics #3 hypothyroidism #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 Currently on CellCept and prednisone 10 mg. #2 pending Prograf level and Currently on hold. #3 repeat labs in the morning
[2018-09-04 16:55] LABS: Glucose,Whole Blood 152 mg/dL (75-99)
[2018-09-04 20:36] LABS: Glucose,Whole Blood 169 mg/dL (75-99)
[2018-09-04] MEDS: METOPROLOL TARTRATE 50 MG TAB PO SCH (20:41)
--- NOTE | 2018-09-05 00:15 | PN ---
PROGRESS NOTE DATE OF SERVICE: 09/04/2018. REASON FOR FOLLOWUP: Pneumonia. INTERVAL HISTORY: The patient did have a low-grade fever last night of 99.7, has been afebrile since then. Has been breathing comfortably. The patient currently has some cough but not bringing up any sputum. No chest pain. No abdominal pain. Has been tolerating his tube feeds. No diarrhea. EXAMINATION: Blood pressure 134/85 with a pulse of 124, temperature of 98. He is 94% on 6 L nasal cannula. General description is an elderly male lying in bed in no distress. Respiratory system: Unlabored breathing with decreased breath sounds at the base. No wheeze. Heart S1, S2. Regular rate and rhythm. Abdomen soft. No tenderness. Extremities: No edema of the feet. LABS: Hemoglobin 8.2, white count was 6.2, BUN of 27, creatinine 0.70. Sputum cultures currently pending. DIAGNOSTIC IMPRESSION AND PLAN: Patient admitted to the hospital with pneumonia in this patient who did have underlying immunosuppression from the medication receiving for his renal transplant. The patient is currently covered with Zosyn and Zyvox that will be continued, adjusting it further based on the culture report. Continue supportive care. MMODL / IJN: [id number] /
[2018-09-05] MEDS: APIXABAN 5 MG TAB PO SCH ×2 (04:56→18:13)
[2018-09-05 06:00] LABS: Glucose,Whole Blood 130 mg/dL (75-99)
[2018-09-05] MEDS: SODIUM CHLORIDE 0.9% 1,000 ML IV SCH ×2 (06:23→18:13)
[2018-09-05] MEDS: INSULIN ASPART 100 UNIT/ML 1 ML 10 ML VIAL SQ SCH ×4 (06:24→21:47)
[2018-09-05] MEDS: LORazepam 1 MG TAB PO SCH ×3 (06:31→22:33)
[2018-09-05] MEDS: PIPERACILLIN-TAZOBACTAM 3.375 GM in SODIUM CHLORIDE 0.9% 100 ML IVPB SCH ×2 (07:04→15:18)
[2018-09-05 07:10] LABS: Anisocytosis Slight; Basophils % (A) 0 %; Eosinophils # (A) 0.1 k/uL (0-0.7); Eosinophils % (A) 1 %; HCT 26.5 % (39.0-53.0); HGB 8.1 gm/dL (13.0-17.5); Hypochromasia Marked; Lymphocytes # (A) 0.2 k/uL (1.0-4.8); Lymphocytes % (A) 4 %; MCH 23.8 pg (25.0-35.0); MCHC 30.4 g/dL (31.0-37.0); MCV 78.4 fL (80.0-100.0); Mean Platelet Volume 7.1; Microcytosis Slight; Monocytes # (A) 0.5 k/uL (0-1.0); Monocytes % (A) 7 %; Neutrophils # (A) 5.3 k/uL (1.3-7.7); Neutrophils % (A) 86 %; Platelet Count 235 k/uL (150-450); RBC 3.38 m/uL (4.30-5.90); RDW 16.8 % (11.5-15.5); WBC 6.1 k/uL (3.8-10.6)
[2018-09-05] MEDS: IPRATROPIUM-ALBUTEROL 3 ML NEB INHALATION SCH ×4 (07:49→20:48)
[2018-09-05 08:08] LABS: Glucose,Whole Blood 132 mg/dL (75-99)
[2018-09-05 08:51] LABS: Anion Gap 9 mmol/L; Blood Urea Nitrogen 29 mg/dL (9-20); Calcium 9.1 mg/dL (8.4-10.2); Carbon Dioxide 22 mmol/L (22-30); Chloride 106 mmol/L (98-107); Glucose 107 mg/dL (74-99); Potassium 4.8 mmol/L (3.5-5.1); Sodium 137 mmol/L (137-145)
[2018-09-05] MEDS: MYCOPHENOLATE SODIUM 360 MG PO SCH ×2 (09:55→19:32)
[2018-09-05] MEDS: DOCUSATE 100 MG CAP PO SCH (10:00)
[2018-09-05] MEDS: ALLOPURINOL 100 MG TAB PO SCH (10:01)
[2018-09-05] MEDS: DILTIAZEM ORAL 30 MG TAB PO SCH ×3 (10:01→19:31)
[2018-09-05] MEDS: LINEZOLID 600 MG in DEXTROSE/WATER 1 300ML.BAG IVPB SCH ×2 (10:01→21:05)
[2018-09-05] MEDS: THIAMINE 100 MG TAB PO SCH (10:01)
[2018-09-05] MEDS: FAMOTIDINE 20 MG TAB PO SCH (10:01)
[2018-09-05] MEDS: predniSONE 10 MG TAB PO SCH (10:01)
[2018-09-05] MEDS: METOPROLOL TARTRATE 50 MG TAB PO SCH ×3 (10:01→19:31)
--- NOTE | 2018-09-05 11:13 | CDI ---
Last Revision, September 2017 Documentation Clarification Form Date: 09/05/2018 11:02:44 AM From: Aura BairdASHLEY, CCDS Admit Date: 09/01/2018 11:06:00 PM Patient Name: Otoniel Meyer Visit Number: [id number] Discharge Date: ATTENTION: The Clinical Documentation Specialists (CDI) and [facility] Coding Staff appreciate your assistance in clarifying documentation. Please respond to the clarification below the line at the bottom and electronically sign. The CDI & [facility] Coding staff will review the response and follow-up if needed. Please note: Queries are made part of the Legal Health Record. If you have any questions, please contact the author of this message via ITS. Zion Templeton MD: Per the ED note, the History & Physical, subsequent consults & progress notes, the patient is emaciated with a PEG tube, thin, looks older than stated age. History/Risk Factors: Lung & tongue CA status post chemo & radiation, PEG tube placed, Back surgery with the year with debilitation, Kidney transplant status w /ESRD per nephrology, Chronic persistent atrial fibrillation, diastolic heart failure & hypertension. Clinical Indicators: Presented with cough & SOB, diagnosed with aspiration pneumonia. Labs: total Protein 5.5*, Albumin 3.0* BMI: 18.8 Dietary consult: Wt 61 kg, Ht 5 ft 11 in, Underweight, Glucerna supplement. Treatment: PEG tube feeding, aspiration precautions, IV fluid rate 1000, IV Azithromycin, IV Cefepime, IV Vancomycin, IV Ms, Albuterol INH. In your professional opinion, can you please clarify if these findings signify one of the following conditions? Mild Protein-Calorie Malnutrition Severe Protein-Calorie Malnutrition Other condition, please specify Unable to determine THIS is Moderate Protein-Calorie Malnutrition MTDD
[2018-09-05] MEDS: MULTIVITAMINS, THERA 1 EACH TAB PO SCH (11:23)
[2018-09-05] MEDS: FOLIC ACID 1 MG TAB PO SCH (11:23)
--- NOTE | 2018-09-05 11:29 | P.PN ---
Subjective Patient is seen in follow-up for renal chest and management. 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 His baseline creatinine is near 1. Currently being treated for pneumonia. Denies chest pain or shortness of breath. Vital signs are stable. General: The patient appeared well nourished and normally developed. HEENT: Head exam is unremarkable. Neck is without jugular venous distension. LUNGS: Lungs are clear to auscultation and percussion. Breath sounds decreased. HEART: Rate and Rhythm are regular. First and second heart sounds normal. No murmurs, rubs or gallops. ABDOMEN: Abdominal exam reveals normal bowel sounds. Non-tender and non- distended. No evidence of peritonitis. EXTREMITITES: No clubbing, cyanosis, or edema. Objective - Vital Signs Vital signs: Vital Signs Temp 97.3 F L 09/05/18 08:00 Pulse 128 H 09/05/18 08:03 Resp 20 09/05/18 08:00 BP 167/105 09/05/18 08:00 Pulse Ox 95 09/05/18 08:00 Intake & Output 09/04/18 09/05/18 09/05/18 18:59 06:59 18:59 Intake Total 0 1050 350 Balance 0 1050 350 Weight 61 kg Intake: Oral 0 Tube Feeding 1050 350 Other: Voiding Method Urinal Urinal Urinal # Voids 1 # Bowel Movements 0 - Labs CBC & Chem 7: 09/05/18 06:53 09/05/18 06:53 Labs: Abnormal Lab Results - Last 24 Hours (Table) 09/04/18 09/04/18 09/04/18 Range/Units 11:36 16:37 20:35 RBC (4.30-5.90) m/uL Hgb (13.0-17.5) gm/dL Hct (39.0-53.0) % MCV (80.0-100.0) fL MCH (25.0-35.0) pg MCHC (31.0-37.0) g/dL RDW (11.5-15.5) % Lymphocytes # (1.0-4.8) k/uL BUN (9-20) mg/dL Glucose (74-99) mg/dL POC Glucose (mg/dL) 167 H 152 H 169 H (75-99) mg/dL 09/05/18 09/05/18 09/05/18 Range/Units 05:59 06:53 06:53 RBC 3.38 L (4.30-5.90) m/uL Hgb 8.1 L (13.0-17.5) gm/dL Hct 26.5 L (39.0-53.0) % MCV 78.4 L (80.0-100.0) fL MCH 23.8 L (25.0-35.0) pg MCHC 30.4 L (31.0-37.0) g/dL RDW 16.8 H (11.5-15.5) % Lymphocytes # 0.2 L (1.0-4.8) k/uL BUN 29 H (9-20) mg/dL Glucose 107 H (74-99) mg/dL POC Glucose (mg/dL) 130 H (75-99) mg/dL 09/05/18 Range/Units 08:05 RBC (4.30-5.90) m/uL Hgb (13.0-17.5) gm/dL Hct (39.0-53.0) % MCV (80.0-100.0) fL MCH (25.0-35.0) pg MCHC (31.0-37.0) g/dL RDW (11.5-15.5) % Lymphocytes # (1.0-4.8) k/uL BUN (9-20) mg/dL Glucose (74-99) mg/dL POC Glucose (mg/dL) 132 H (75-99) mg/dL Microbiology - Last 24 Hours (Table) 09/01/18 20:56 Blood Culture - Preliminary Blood No Growth after 72 hours 09/02/18 09:05 Gram Stain - Final Abdomen Wound Culture - Final 09/02/18 01:13 Gram Stain - Final Sputum Sputum Culture - Final Assessment and Plan Plan: Assessment: 1. 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 Baseline creatinine near 1. 2. Pneumonia maintained on antibiotics. Infectious disease following. 3. 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 Maintained on PEG tube feedings. 4. Anemia of chronic kidney disease. Rule out iron deficiency. Plan: Maintain home regimen of immunosuppression which is Prograf and mycophenolate. Check iron studies. Avoid nephrotoxins. Repeat electrolytes in the morning. Check Prograf level.
[2018-09-05 11:45] LABS: Glucose,Whole Blood 118 mg/dL (75-99)
[2018-09-05] MEDS: METOPROLOL TARTRATE 25 MG TAB PO SCH (11:45)
--- NOTE | 2018-09-05 12:14 | P.PN ---
Subjective Progress Note Date: 09/05/18 This is a 68 stroke gentleman who recently underwent back surgery, he has known history of atrial fibrillation, he is on PEG tube feeding because of difficulty in swallowing. 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 Patient is in atrial fibrillation, he is anticoagulated, his coronary risk factors are remarkable for hypertension, he is nondiabetic, he quit smoking in the past. He presented to the hospital primarily with symptoms of dyspnea and associated cough which was felt to be secondary to aspiration pneumonia. He was seen and examined this morning, states overall he's feeling significantly better. His blood pressure today is 152/90 with a heart rate of 108-113. White blood cell count 6.8, hemoglobin 8.8, platelet count 275. Sodium 136, potassium 5.1, BUN 29, creatinine 0.7. 09/05/2018 Patient was seen and examined this morning, continues to have cough but overall states he is feeling better. Chest x-ray continues to show bilateral diffuse infiltrates consistent with aspiration pneumonia, and it is concerning that the patient may have to have a bronchoscopy this week. Continues to be in atrial fibrillation, heart rate at the time of my examination is 108. At times it does go up into the 120 range. Blood pressure this afternoon 166/105, 95% on 6 L of oxygen. Will increase the metoprolol to 50 3 times a day, increase the Cardizem to 90 3 times a day. Objective - Vital Signs Vital signs: Vital Signs Temp 97.3 F L 09/05/18 08:00 Pulse 128 H 09/05/18 08:03 Resp 20 09/05/18 08:00 BP 167/105 09/05/18 08:00 Pulse Ox 95 09/05/18 08:00 Intake & Output 09/04/18 09/05/18 09/05/18 18:59 06:59 18:59 Intake Total 0 1050 350 Balance 0 1050 350 Weight 61 kg Intake: Oral 0 Tube Feeding 1050 350 Other: Voiding Method Urinal Urinal Urinal # Voids 1 # Bowel Movements 0 - Exam PHYSICAL EXAMINATION: GENERAL: 68-year-old gentleman in no acute distress at the time of my examination HEENT: Head is atraumatic, normocephalic. Pupils equal, round. Sclera anicteric. Conjunctiva are clear. Mucous membranes of the mouth are moist. Neck is supple. There is no elevated jugular venous pressure. No carotid bruit is heard. HEART EXAMINATION: Heart S1 S2 irregularly irregular systolic murmur is heard. CHEST EXAMINATION: His reveal crackles to bilateral bases. ABDOMEN: Soft, nontender. Bowel sounds are heard. No organomegaly noted. PEG tube in place. EXTREMITIES: 2+ peripheral pulses with no evidence of peripheral edema and no calf tenderness noted. NEUROLOGIC patient is awake, alert and oriented 3. . - Labs CBC & Chem 7: 09/05/18 06:53 09/05/18 06:53 Labs: Abnormal Lab Results - Last 24 Hours (Table) 09/04/18 09/04/18 09/05/18 Range/Units 16:37 20:35 05:59 RBC (4.30-5.90) m/uL Hgb (13.0-17.5) gm/dL Hct (39.0-53.0) % MCV (80.0-100.0) fL MCH (25.0-35.0) pg MCHC (31.0-37.0) g/dL RDW (11.5-15.5) % Lymphocytes # (1.0-4.8) k/uL BUN (9-20) mg/dL Glucose (74-99) mg/dL POC Glucose (mg/dL) 152 H 169 H 130 H (75-99) mg/dL 09/05/18 09/05/18 09/05/18 Range/Units 06:53 06:53 08:05 RBC 3.38 L (4.30-5.90) m/uL Hgb 8.1 L (13.0-17.5) gm/dL Hct 26.5 L (39.0-53.0) % MCV 78.4 L (80.0-100.0) fL MCH 23.8 L (25.0-35.0) pg MCHC 30.4 L (31.0-37.0) g/dL RDW 16.8 H (11.5-15.5) % Lymphocytes # 0.2 L (1.0-4.8) k/uL BUN 29 H (9-20) mg/dL Glucose 107 H (74-99) mg/dL POC Glucose (mg/dL) 132 H (75-99) mg/dL 09/05/18 Range/Units 11:42 RBC (4.30-5.90) m/uL Hgb (13.0-17.5) gm/dL Hct (39.0-53.0) % MCV (80.0-100.0) fL MCH (25.0-35.0) pg MCHC (31.0-37.0) g/dL RDW (11.5-15.5) % Lymphocytes # (1.0-4.8) k/uL BUN (9-20) mg/dL Glucose (74-99) mg/dL POC Glucose (mg/dL) 118 H (75-99) mg/dL Microbiology - Last 24 Hours (Table) 09/01/18 20:56 Blood Culture - Preliminary Blood No Growth after 72 hours 09/02/18 09:05 Gram Stain - Final Abdomen Wound Culture - Final 09/02/18 01:13 Gram Stain - Final Sputum Sputum Culture - Final Assessment and Plan Plan: Assessment and plan #1 pneumonia, probably aspiration pneumonia in a patient with problems swallowing following his recent surgery with PEG tube placement #2 chronic persistent atrial fibrillation, on anticoagulation #3 status post renal transplant #4 hypertension Plan Patient remains slightly tachycardic with elevated blood pressure, we will increase the metoprolol to 50 mg one tablet by mouth 3 times a day and increase Cardizem to 90 mg one tablet by mouth 3 times a day for more optimal heart rate and blood pressure control. DNP note has been reviewed, I agree with a documented findings and plan of care. Patient was seen and examined.
--- NOTE | 2018-09-05 13:20 | P.PN ---
Subjective Progress Note Date: 09/05/18 This 68-year-old white male although the practice. 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 He is medically debilitated after back surgery. He has a history of atrial fibrillation on anticoagulation and PEG tube feedings due to aphasia. Apparently for the past several days he's been having increasing cough and shortness of breath. His caregiver at home and call our office notifying us he been eating. He has a history of kidney transplant 2005 is on immunosuppression. He also has a history of chemotherapy and radiation for carcinoma of the tongue and [place] back to [place] with a history of lung carcinoma.. Is currently on prednisone and Prograf for immunosuppression or his kidney transplant. Nursing staff report that he had aspirated while they're trying to give him his meds and feed him. He is currently nothing by mouth with tube feeds only at this time. Nursing staff also reported hemoptysis with his coughing. He recently had lumbar back surgery in the summer of 2017. He reports he still is only able to ambulate with a walker due to pain. He was in [facility] up until 2 weeks ago. 09/03/2018: Overnight patient had pain and was started on liquid hydrocodone through PEG tube. He remains on antibiotics of azithromycin, cefepime, and vancomycin. Nephrology had discontinued one of his immunosuppressants due to his pneumonia. Pulmonology has seen the patient and there is no current need for bronchoscopy at this point. Cardiology recommended to continue his current medications. They're monitoring his atrial fibrillation and he remains on Elequis. He has had some faster heart rates, borderlining RVR with A. fib. Staff are monitoring this. He denies any chest pains or pressures this morning. He denies any nausea or vomiting. He is only had ice chips overnight. He did get a second dose of pain medication approximately 9 AM this morning. His is at bedside and case discussed with her. 09/04/2018: Patient continues to complain of some dry mouth since being made nothing by mouth. His antibiotics were changed by infectious disease to Zyvox and Zosyn. He states today that he is "not feeling well ". He denies any chest pains, pressures. Denies any nausea or vomiting. Does have some mild shortness of breath. Yesterday, Cardiology increased his metoprolol 25 mg 3 times a day due to tachycardia. This a.m. thogh, his heart rate was found to be in the 130s. Above notes per Dr. Polk 09/05/2018: patient examined at the bedside. Patient is awake and alert. He appears confused this afternoon. Spouse is at the bedside. Tolerating tube feedings. He continues to have occasional hemoptysis. Pulmonary is following. He remains tachycardic with a rate in the 120-130s. Cardiology increased metoprolol to 50mg TID and cardizem to 90mg TID. He is receiving Zyvox and Zosyn. Infectious disease is following. Objective - Vital Signs Vital signs: Vital Signs Temp 97.4 F L 09/05/18 12:00 Pulse 120 H 09/05/18 12:27 Resp 20 09/05/18 12:00 BP 156/116 09/05/18 12:00 Pulse Ox 95 09/05/18 12:00 Intake & Output 09/04/18 09/05/18 09/05/18 18:59 06:59 18:59 Intake Total 0 1050 700 Output Total 300 Balance 0 1050 400 Weight 61 kg Intake: Oral 0 Tube Feeding 1050 700 Output: Urine 300 Other: Voiding Method Urinal Urinal Urinal # Voids 1 1 # Bowel Movements 0 0 - Exam GENERAL: This is a 68-year-old male in no apparent distress at the time of examination, although he is confused. HEENT: Head is atraumatic, normocephalic. Pupils are equal, round, and reactive to light. Sclerae anicteric. Conjunctivae are clear. Mucus membranes of the mouth are moist. Neck is supple. RESPIRATORY: Lungs coarse with scattered rhonchi. No use of accessory muscles. Patient maintaining oxygen saturation greater than 92%. CARDIOVASCULAR: Irregular rhythm. Tachycardic. S1 and S2 noted. No JVD noted. No S3 or S4 noted. GASTROINTESTINAL: No distention noted. Abdomen soft and round. Normal active bowel sounds auscultated x 4 quadrants. No pain or tenderness noted upon palpation. Feeding tube intact with TF infusing. INTEGUMENTARY: No cyanosis. No jaundice. No rashes noted. No cellulitis noted. EXTREMITIES: 2+ peripheral pulses. No evidence of peripheral edema. No calf tenderness noted. NEUROLOGIC: Cranial nerves II-XII grossly intact. Dysarthria noted. PSYCHIATRIC: Awake and alert. Patient is slightly confused upon examination. - Labs CBC & Chem 7: 09/05/18 06:53 09/05/18 06:53 Labs: Abnormal Lab Results - Last 24 Hours (Table) 09/04/18 09/04/18 09/05/18 Range/Units 16:37 20:35 05:59 RBC (4.30-5.90) m/uL Hgb (13.0-17.5) gm/dL Hct (39.0-53.0) % MCV (80.0-100.0) fL MCH (25.0-35.0) pg MCHC (31.0-37.0) g/dL RDW (11.5-15.5) % Lymphocytes # (1.0-4.8) k/uL BUN (9-20) mg/dL Glucose (74-99) mg/dL POC Glucose (mg/dL) 152 H 169 H 130 H (75-99) mg/dL 09/05/18 09/05/18 09/05/18 Range/Units 06:53 06:53 08:05 RBC 3.38 L (4.30-5.90) m/uL Hgb 8.1 L (13.0-17.5) gm/dL Hct 26.5 L (39.0-53.0) % MCV 78.4 L (80.0-100.0) fL MCH 23.8 L (25.0-35.0) pg MCHC 30.4 L (31.0-37.0) g/dL RDW 16.8 H (11.5-15.5) % Lymphocytes # 0.2 L (1.0-4.8) k/uL BUN 29 H (9-20) mg/dL Glucose 107 H (74-99) mg/dL POC Glucose (mg/dL) 132 H (75-99) mg/dL 09/05/18 Range/Units 11:42 RBC (4.30-5.90) m/uL Hgb (13.0-17.5) gm/dL Hct (39.0-53.0) % MCV (80.0-100.0) fL MCH (25.0-35.0) pg MCHC (31.0-37.0) g/dL RDW (11.5-15.5) % Lymphocytes # (1.0-4.8) k/uL BUN (9-20) mg/dL Glucose (74-99) mg/dL POC Glucose (mg/dL) 118 H (75-99) mg/dL Microbiology - Last 24 Hours (Table) 09/01/18 20:56 Blood Culture - Preliminary Blood No Growth after 72 hours 09/02/18 09:05 Gram Stain - Final Abdomen Wound Culture - Final 09/02/18 01:13 Gram Stain - Final Sputum Sputum Culture - Final Assessment and Plan Plan: ASSESSMENT: Aspiration pneumonia Chronic atrial fibrillation, on half-way anticoagulation with Eliquis History of renal transplant Hypertension Anemia of chronic disease History of tongue cancer, s/p chemotherapy and radiation History of lung cancer Immunosuppression due to drug therapy Hemoptysis, secondary to pneumonia and anticoagulation Low back pain, s/p recent back surgery May 2018 History of diastolic CHF, no evidence of acute exacerbation Moderate protein calorie malnutrition, albumin 2.7, BMI 18.8 Debility PLAN: Cardiology, pulmonary, and infectious disease on consult. Recommendations and input appreciated Metoprolol and cardizem increased per cardiology. monitor heart rate. Await further recommendations from pulmonary regarding possible need for bronch Discontinue [place] due to confusion. Tylenol PRN for pain Begin seroquel 25mg at HS PT/OT Home meds as appropriate Monitor labs GI prophylaxis: Pepcid 20mg daily DVT prophylaxis: Eliquis Monitor vital signs and address as appropriate Discharge planning: Patient to return home when stable. will be caring for patient at home. Further recommendations pending patient's course Nurse practitioner note has been reviewed by physician. Signing provider agrees with the documented findings, assessment, and plan of care.
[2018-09-05] MEDS: ACETAMINOPHEN TAB 325 MG TAB PEG/G-TUBE PRN (15:16)
[2018-09-05] MEDS: methylPREDNISolone SOD SUCCI 40 MG/ML 1 ML VIAL IV SCH (15:17)
--- NOTE | 2018-09-05 16:24 | P.PN ---
Subjective Progress Note Date: 09/05/18 Principal diagnosis: Acute aspiration pneumonia This is a 68-year-old white male primarily a patient of Dr. Casper, known history of multiple medical problems including renal transplant in 2004, history of lung cancer and previous lobectomy, history of lung cancer, history of aspiration pneumonia requiring PEG tube placement, history of atrial fibrillation, maintained on anticoagulation therapy, presented to the ER with a few days' history of cough, shortness of breath, and his chest x-ray clearly showed evidence of bilateral infiltrates consistent with aspiration pneumonia. Patient was admitted by Dr. Casper, presently on vancomycin and cefepime. Patient describes cough, cough is productive with thick yellow phlegm. No fever , no chills, no hemoptysis. Patient is maintained on 6 L nasal cannula, and his O2 saturation is 94%. Patient had a kidney transplant in 2004, and this was a cadaver transplant. Maintained on prednisone and Prograf for immunosuppression related to his kidney transplant. Patient also had previous history of tongue cancer status post chemo and radiation therapy. Had previous lung cancer and previous right sided lobectomy. Presently the patient is sitting in bed, comfortable, has mostly symptoms of cough, no fever no chills no hemoptysis no chest pain, no nausea no vomiting no abdominal pain, has a functional PEG tube in place. Denies any dysuria frequency or urgency. Chest x -ray again is consistent with bilateral pneumonia, felt to be aspiration pneumonia unless proven otherwise. The patient is seen again today 09/03/2018 in follow-up on the selective care unit. He is currently resting comfortably in bed. He is awake and alert in no acute distress. His breath. He has a loose nonproductive cough. No chills or night sweats. He is maintaining O2 saturations in the low 90s on 4 L/m per nasal cannula. She's afebrile. Slightly tachycardic. Slightly hypertensive. Blood,urine, sputum and wound cultures are pending. White count 6.8. Hemoglobin 8.8. Creatinine 0.79. Currently on cefepime, vancomycin and azithromycin. He remains nothing by mouth. Receiving PEG tube feedings with Glucerna 1.2. Patient was seen today on 09/04/2018, continues to have intermittent episodes of cough, some shortness of breath, according to the he looks worse today than he was yesterday. Chest x-ray continues to show bilateral diffuse infiltrates, consistent with aspiration pneumonia, and it is concerning that the patient may have to be bronchoscoped sometime next week assuming he doesn't respond to antibiotics. His antibiotics have been switched to Zyvox and Zosyn by infectious disease, CBC showed no leukocytosis today, hemoglobin is 8.6, WBC count is 6.8. Electrolytes and renal profile are relatively normal. Bicarb is 20. Again chest x-ray is a bit worse compared to yesterday. Bilateral airspace disease consistent with aspiration pneumonia. She is seen again today 09/05/2018 in follow-up on the selective care unit. He is more awake and alert today. He is maintaining O2 saturations in the mid 90s on 6 L/m per nasal cannula. He is currently afebrile. Blood, urine, wound and sputum cultures reveal no growth. White count 6.1. Hemoglobin 8.1. Creatinine 0.79. He remains on DuoNeb inhalations, Pulmicort and Perforomist inhalations, V Solu-Medrol. He is also on antibiotics in the form of linezolid and Zosyn. His chest x-ray shows worsening bilateral infiltrates. He is having small amounts of hemoptysis. Objective - Vital Signs Vital signs: Vital Signs Temp 97.6 F 09/05/18 15:45 Pulse 131 H 09/05/18 15:45 Resp 20 09/05/18 15:45 BP 162/110 09/05/18 15:45 Pulse Ox 96 09/05/18 15:45 Intake & Output 09/04/18 09/05/18 09/05/18 18:59 06:59 18:59 Intake Total 0 1050 1050 Output Total 300 Balance 0 1050 750 Weight 61 kg 61 kg Intake: Oral 0 Tube Feeding 1050 1050 Output: Urine 300 Other: Voiding Method Urinal Urinal Urinal # Voids 1 1 # Bowel Movements 0 0 - Exam GENERAL: Emaciated thin male who looks older than his stated age and in no acute distress. On 6 L/m per nasal cannula. HEAD: Atraumatic, normocephalic. EYES: Pupils equal round and reactive to light, extraocular movements intact, sclera anicteric, conjunctiva are normal. ENT:nares patent, oropharynx clear without exudates. Moist mucous membranes. NECK: Normal range of motion, supple without lymphadenopathy or JVD, no thyromegaly LUNGS: Breath sounds coarse to auscultation bilaterally and equal. No wheezes rales and minimal rhonchi to the left base. HEART: Regular rate and rhythm without murmurs, rubs or gallops.S1S2 Normal ABDOMEN: Soft, nontender, normoactive bowel sounds. No guarding, no rebound. No masses appreciated. There is a PEG tube in place. EXTREMITIES: Normal range of motion, no pitting or edema. No clubbing or cyanosis. NEUROLOGICAL: Cranial nerves II through XII grossly intact. Dysarthria is noted , gait untested. PSYCH: Normal mood, normal affect. SKIN: Warm, Dry, normal turgor, no rashes or lesions noted. - Labs CBC & Chem 7: 09/05/18 06:53 09/05/18 06:53 Labs: Abnormal Lab Results - Last 24 Hours (Table) 09/04/18 09/04/18 09/05/18 Range/Units 16:37 20:35 05:59 RBC (4.30-5.90) m/uL Hgb (13.0-17.5) gm/dL Hct (39.0-53.0) % MCV (80.0-100.0) fL MCH (25.0-35.0) pg MCHC (31.0-37.0) g/dL RDW (11.5-15.5) % Lymphocytes # (1.0-4.8) k/uL BUN (9-20) mg/dL Glucose (74-99) mg/dL POC Glucose (mg/dL) 152 H 169 H 130 H (75-99) mg/dL 09/05/18 09/05/18 09/05/18 Range/Units 06:53 06:53 08:05 RBC 3.38 L (4.30-5.90) m/uL Hgb 8.1 L (13.0-17.5) gm/dL Hct 26.5 L (39.0-53.0) % MCV 78.4 L (80.0-100.0) fL MCH 23.8 L (25.0-35.0) pg MCHC 30.4 L (31.0-37.0) g/dL RDW 16.8 H (11.5-15.5) % Lymphocytes # 0.2 L (1.0-4.8) k/uL BUN 29 H (9-20) mg/dL Glucose 107 H (74-99) mg/dL POC Glucose (mg/dL) 132 H (75-99) mg/dL 09/05/18 Range/Units 11:42 RBC (4.30-5.90) m/uL Hgb (13.0-17.5) gm/dL Hct (39.0-53.0) % MCV (80.0-100.0) fL MCH (25.0-35.0) pg MCHC (31.0-37.0) g/dL RDW (11.5-15.5) % Lymphocytes # (1.0-4.8) k/uL BUN (9-20) mg/dL Glucose (74-99) mg/dL POC Glucose (mg/dL) 118 H (75-99) mg/dL Microbiology - Last 24 Hours (Table) 09/01/18 20:56 Blood Culture - Preliminary Blood No Growth after 72 hours 09/02/18 09:05 Gram Stain - Final Abdomen Wound Culture - Final 09/02/18 01:13 Gram Stain - Final Sputum Sputum Culture - Final Assessment and Plan Assessment: Impression: 1 acute aspiration pneumonia 2 chronic atrial fibrillation 3 history of diastolic congestive heart failure, however his chest x-ray is not consistent with pulmonary edema. 4 history of lung cancer and previous lobectomy 5 history of lung cancer and previous radiation treatment 6 medical debility, a shunt is mostly bedridden, uses a walker to ambulate around his bed. 7 history of kidney transplant maintained on immunosuppressive therapy/Prograf and prednisone. 8 occasional hemoptysis secondary to pneumonia and the fact that the patient is on anticoagulation therapy. No need to consider bronchoscopy at this point. Recommendation: The patient was seen and evaluated by Dr. Cordoba. Chest x-ray shows worsening infiltrates. The patient has had a small amount of hemoptysis. He would benefit from bronchoscopy and BAL however the patient is so frail and cachectic and borderline the risks may outweigh the benefits. He'll remain on PEG feedings only. Nothing by mouth. Continue antibiotics per ID recommendations. Continue bronchodilators. We'll continue to follow. I, the cosigning physician, performed a history & physical examination of the patient. Lungs sounds with few scattered rhonchi more so on the right lung. Maintaining good O2 saturations in the 90s on 6 L/m per nasal cannula. I discussed the assessment and plan of care with my nurse practitioner, Quynh Reyes. I attest to the above note as dictated by her.
[2018-09-05 16:43] LABS: Iron Saturation 3.4 (15.00-50.00)
[2018-09-05 17:52] LABS: Glucose,Whole Blood 170 mg/dL (75-99)
[2018-09-05] MEDS: LORazepam 0.5 MG TAB PO PRN (19:04)
[2018-09-05] MEDS: TACROLIMUS 1 MG CAP PO SCH (19:32)
[2018-09-05] MEDS: QUEtiapine 25 MG TAB PO SCH (19:32)
[2018-09-05] MEDS: BUDESONIDE 1 MG/2 ML NEBU INHALATION SCH (20:48)
[2018-09-05] MEDS: FORMOTEROL FUMARATE 20 MCG/2 ML NEBU INHALATION SCH (20:48)
[2018-09-05] MEDS ORDERED: TACROLIMUS 1 MG CAP PO SCH (21:00)
--- NOTE | 2018-09-05 21:22 | PN ---
PROGRESS NOTE DATE OF SERVICE: 09/05/2018 REASON FOR FOLLOWUP: Pneumonia. INTERVAL HISTORY: The patient is afebrile. He is complaining of some shortness of breath. He continues to have some cough but not bringing up any sputum. No chest pain. No nausea or vomiting. No abdominal pain. No diarrhea. EXAMINATION: Blood pressure is 150/100 with a pulse of 131, temperature 97.6. He is 93% on 6 L nasal cannula. General description is an elderly male lying in bed in no distress. Respiratory system: Unlabored breathing with decreased breath sounds at the base. no wheeze. Heart S1-S2 regular rate and rhythm. Abdomen: Soft. No tenderness. LABS: BUN of 29, creatinine 0.79, hemoglobin 8.9, white count 6.1. Blood culture has been negative so far. Sputum culture currently pending. DIAGNOSTIC IMPRESSION AND PLAN: Patient with extensive bilateral pneumonia in this patient who did have underlying immunosuppression. Because of his renal transplant medication, initial concern for possible aspiration pneumonia. Patient is currently covered with Zosyn and Zyvox that will be continued. He will follow up on the sputum cultures as well as clinical condition. present at bedside. Questions answered. MMODL / IJN: [id number] /
[2018-09-05 21:25] LABS: Glucose,Whole Blood 115 mg/dL (75-99)
[2018-09-06 00:24] LABS: Hemoglobin A1C 5.8 % (4.0-6.0)
[2018-09-06] MEDS: PIPERACILLIN-TAZOBACTAM 3.375 GM in SODIUM CHLORIDE 0.9% 100 ML IVPB SCH ×3 (02:01→18:07)
[2018-09-06] MEDS: methylPREDNISolone SOD SUCCI 40 MG/ML 1 ML VIAL IV SCH ×3 (02:02→18:16)
[2018-09-06] MEDS: SODIUM CHLORIDE 0.9% 1,000 ML IV SCH ×2 (05:48→14:54)
[2018-09-06] MEDS: APIXABAN 5 MG TAB PO SCH ×2 (05:49→18:06)
[2018-09-06 05:52] LABS: Anisocytosis Slight; Basophils % (A) 0 %; Eosinophils % (A) 0 %; HCT 27.8 % (39.0-53.0); HGB 8.1 gm/dL (13.0-17.5); Hypochromasia Marked; Lymphocytes # (A) 0.2 k/uL (1.0-4.8); Lymphocytes % (A) 4 %; MCH 23.8 pg (25.0-35.0); MCHC 29.2 g/dL (31.0-37.0); MCV 81.3 fL (80.0-100.0); Monocytes # (A) 0.1 k/uL (0-1.0); Monocytes % (A) 3 %; Neutrophils # (A) 3.5 k/uL (1.3-7.7); Neutrophils % (A) 92 %; Platelet Count 227 k/uL (150-450); RBC 3.42 m/uL (4.30-5.90); RDW 17.1 % (11.5-15.5); WBC 3.8 k/uL (3.8-10.6)
[2018-09-06 06:03] LABS: Anion Gap 11 mmol/L; Blood Urea Nitrogen 34 mg/dL (9-20); Calcium 9.1 mg/dL (8.4-10.2); Carbon Dioxide 22 mmol/L (22-30); Chloride 105 mmol/L (98-107); Glucose 123 mg/dL (74-99); Potassium 4.9 mmol/L (3.5-5.1); Sodium 138 mmol/L (137-145)
[2018-09-06 06:42] LABS: Glucose,Whole Blood 134 mg/dL (75-99)
[2018-09-06] MEDS: INSULIN ASPART 100 UNIT/ML 1 ML 10 ML VIAL SQ SCH ×4 (06:50→20:57)
[2018-09-06] MEDS: METOPROLOL TARTRATE 50 MG TAB PO SCH ×3 (08:50→20:56)
[2018-09-06] MEDS: LORazepam 1 MG TAB PO SCH ×2 (08:50→18:06)
[2018-09-06] MEDS: DILTIAZEM ORAL 30 MG TAB PO SCH (08:51)
[2018-09-06] MEDS: THIAMINE 100 MG TAB PO SCH (08:51)
[2018-09-06] MEDS: ALLOPURINOL 100 MG TAB PO SCH (08:51)
[2018-09-06] MEDS: TACROLIMUS 1 MG CAP PO SCH ×2 (08:51→20:56)
[2018-09-06] MEDS: MYCOPHENOLATE SODIUM 360 MG PO SCH (08:51)
[2018-09-06] MEDS: FAMOTIDINE 20 MG TAB PO SCH (08:51)
[2018-09-06] MEDS: DOCUSATE 100 MG CAP PO SCH (08:53)
[2018-09-06] MEDS: LINEZOLID 600 MG in DEXTROSE/WATER 1 300ML.BAG IVPB SCH ×2 (08:53→20:57)
[2018-09-06] MEDS: FORMOTEROL FUMARATE 20 MCG/2 ML NEBU INHALATION SCH ×2 (09:05→20:39)
[2018-09-06] MEDS: IPRATROPIUM-ALBUTEROL 3 ML NEB INHALATION SCH ×4 (09:05→20:39)
[2018-09-06] MEDS: BUDESONIDE 1 MG/2 ML NEBU INHALATION SCH ×2 (09:05→20:39)
--- NOTE | 2018-09-06 10:50 | P.PN ---
Subjective Progress Note Date: 09/06/18 This 68-year-old white male although the practice. 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 He is medically debilitated after back surgery. He has a history of atrial fibrillation on anticoagulation and PEG tube feedings due to aphasia. Apparently for the past several days he's been having increasing cough and shortness of breath. His caregiver at home and call our office notifying us he been eating. He has a history of kidney transplant 2005 is on immunosuppression. 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 Is currently on prednisone and Prograf for immunosuppression or his kidney transplant. Nursing staff report that he had aspirated while they're trying to give him his meds and feed him. He is currently nothing by mouth with tube feeds only at this time. Nursing staff also reported hemoptysis with his coughing. He recently had lumbar back surgery in the summer of 2017. He reports he still is only able to ambulate with a walker due to pain. He was in [facility] up until 2 weeks ago. 09/03/2018: Overnight patient had pain and was started on liquid hydrocodone through PEG tube. He remains on antibiotics of azithromycin, cefepime, and vancomycin. Nephrology had discontinued one of his immunosuppressants due to his pneumonia. Pulmonology has seen the patient and there is no current need for bronchoscopy at this point. Cardiology recommended to continue his current medications. They're monitoring his atrial fibrillation and he remains on Elequis. He has had some faster heart rates, borderlining RVR with A. fib. Staff are monitoring this. He denies any chest pains or pressures this morning. He denies any nausea or vomiting. He is only had ice chips overnight. He did get a second dose of pain medication approximately 9 AM this morning. His is at bedside and case discussed with her. 09/04/2018: Patient continues to complain of some dry mouth since being made nothing by mouth. His antibiotics were changed by infectious disease to Zyvox and Zosyn. He states today that he is "not feeling well ". He denies any chest pains, pressures. Denies any nausea or vomiting. Does have some mild shortness of breath. Yesterday, Cardiology increased his metoprolol 25 mg 3 times a day due to tachycardia. This a.m. thogh, his heart rate was found to be in the 130s. Above notes per Dr. Polk 09/05/2018: patient examined at the bedside. Patient is awake and alert. He appears confused this afternoon. Spouse is at the bedside. Tolerating tube feedings. He continues to have occasional hemoptysis. Pulmonary is following. He remains tachycardic with a rate in the 120-130s. Cardiology increased metoprolol to 50mg TID and cardizem to 90mg TID. He is receiving Zyvox and Zosyn. Infectious disease is following. 09/06/2018: Patient examined at the bedside with Dr. Polk. Patient continues to have intermittent confusion. He remains on nasal cannula at 6L. metoprolol and Cardizem were increased yesterday per cardiology due to tachycardia. Patient's heart rate currently ranging between 90 and 128. All cultures are negative at this time. Infectious disease is following. Pulmonary is also following. No plans to perform bronchoscopy at this time. Discussed discharge planning with who thinks that it may be too much for her to handle to take care of the patient at home. She is agreeable to subacute rehab at this time. She is requesting [facility]. Objective - Vital Signs Vital signs: Vital Signs Temp 98.2 F 09/06/18 08:00 Pulse 128 H 09/06/18 09:21 Resp 20 09/06/18 08:00 BP 165/113 09/06/18 08:00 Pulse Ox 96 09/06/18 08:00 Intake & Output 09/05/18 09/06/18 09/06/18 18:59 06:59 18:59 Intake Total 1050 1700 350 Output Total 300 Balance 750 1700 350 Weight 61 kg 62.5 kg Intake: Intake, IV Titration 1000 Amount Sodium Chloride 0.9% 1, 1000 000 ml @ 100 mls/hr IV . BY DURATION [facility] Rx#: [id number] Tube Feeding 1050 700 350 Output: Urine 300 Other: Voiding Method Urinal Urinal Urinal # Voids 1 # Bowel Movements 0 - Exam GENERAL: This is a 68-year-old male in no apparent distress at the time of examination, although he is confused. HEENT: Head is atraumatic, normocephalic. Pupils are equal, round, and reactive to light. Sclerae anicteric. Conjunctivae are clear. Mucus membranes of the mouth are dry. Neck is supple. RESPIRATORY: Lungs coarse with scattered rhonchi. No use of accessory muscles. Patient maintaining oxygen saturation greater than 92%. CARDIOVASCULAR: Irregular rhythm. Tachycardic. S1 and S2 noted. No JVD noted. No S3 or S4 noted. GASTROINTESTINAL: No distention noted. Abdomen soft and round. Normal active bowel sounds auscultated x 4 quadrants. No pain or tenderness noted upon palpation. Feeding tube intact. INTEGUMENTARY: No cyanosis. No jaundice. No rashes noted. No cellulitis noted. EXTREMITIES: 2+ peripheral pulses. No evidence of peripheral edema. No calf tenderness noted. NEUROLOGIC: Cranial nerves II-XII grossly intact. Dysarthria noted. PSYCHIATRIC: Awake and alert. Patient is slightly confused upon examination. - Labs CBC & Chem 7: 09/06/18 04:53 09/06/18 04:53 Labs: Abnormal Lab Results - Last 24 Hours (Table) 09/05/18 09/05/18 09/05/18 Range/Units 06:53 11:42 17:38 RBC (4.30-5.90) m/uL Hgb (13.0-17.5) gm/dL Hct (39.0-53.0) % MCH (25.0-35.0) pg MCHC (31.0-37.0) g/dL RDW (11.5-15.5) % Lymphocytes # (1.0-4.8) k/uL BUN (9-20) mg/dL Glucose (74-99) mg/dL POC Glucose (mg/dL) 118 H 170 H (75-99) mg/dL Iron 8 L (65-175) ug/dL Iron Saturation 3.40 L (15.00-50.00) 09/05/18 09/06/18 09/06/18 Range/Units 21:23 04:53 04:53 RBC 3.42 L (4.30-5.90) m/uL Hgb 8.1 L (13.0-17.5) gm/dL Hct 27.8 L (39.0-53.0) % MCH 23.8 L (25.0-35.0) pg MCHC 29.2 L (31.0-37.0) g/dL RDW 17.1 H (11.5-15.5) % Lymphocytes # 0.2 L (1.0-4.8) k/uL BUN 34 H (9-20) mg/dL Glucose 123 H (74-99) mg/dL POC Glucose (mg/dL) 115 H (75-99) mg/dL Iron (65-175) ug/dL Iron Saturation (15.00-50.00) 09/06/18 Range/Units 06:40 RBC (4.30-5.90) m/uL Hgb (13.0-17.5) gm/dL Hct (39.0-53.0) % MCH (25.0-35.0) pg MCHC (31.0-37.0) g/dL RDW (11.5-15.5) % Lymphocytes # (1.0-4.8) k/uL BUN (9-20) mg/dL Glucose (74-99) mg/dL POC Glucose (mg/dL) 134 H (75-99) mg/dL Iron (65-175) ug/dL Iron Saturation (15.00-50.00) Microbiology - Last 24 Hours (Table) 09/01/18 20:56 Blood Culture - Preliminary Blood No Growth after 96 hours Assessment and Plan Plan: ASSESSMENT: Aspiration pneumonia Chronic atrial fibrillation, on senior living anticoagulation with Eliquis History of renal transplant Hypertension Anemia of chronic disease History of tongue cancer, s/p chemotherapy and radiation History of lung cancer Immunosuppression due to drug therapy Hemoptysis, secondary to pneumonia and anticoagulation Low back pain, s/p recent back surgery May 2018 History of diastolic CHF, no evidence of acute exacerbation Moderate protein calorie malnutrition, albumin 2.7, BMI 18.8 Debility PLAN: Cardiology, pulmonary, and infectious disease on consult. Recommendations and input appreciated Metoprolol and cardizem increased per cardiology. monitor heart rate. Await final antibiotic recommendations from ID PT/OT Home meds as appropriate Monitor labs GI prophylaxis: Pepcid 20mg daily DVT prophylaxis: Eliquis Monitor vital signs and address as appropriate Discharge planning: Patients is agreeable to [facility] at discharge. Requesting [facility]. Further recommendations pending patient's course Possible discharge to [facility] on if patient remains stable Nurse practitioner note has been reviewed by physician. Signing provider agrees with the documented findings, assessment, and plan of care.
[2018-09-06 11:23] LABS: Glucose,Whole Blood 236 mg/dL (75-99)
[2018-09-06] MEDS: FOLIC ACID 1 MG TAB PO SCH (12:44)
[2018-09-06] MEDS: MULTIVITAMINS, THERA 1 EACH TAB PO SCH (12:44)
--- NOTE | 2018-09-06 13:38 | P.PN ---
Subjective Patient is seen in follow-up for renal transplant management. 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 His baseline creatinine is near 1. Currently being treated for pneumonia. Denies chest pain or shortness of breath. Continues to have a cough. Vital signs are stable. General: The patient appeared well nourished and normally developed. HEENT: Head exam is unremarkable. Neck is without jugular venous distension. LUNGS: Lungs are clear to auscultation and percussion. Breath sounds decreased. HEART: Rate and Rhythm are regular. First and second heart sounds normal. No murmurs, rubs or gallops. ABDOMEN: Abdominal exam reveals normal bowel sounds. Non-tender and non- distended. No evidence of peritonitis. EXTREMITITES: No clubbing, cyanosis, or edema. Objective - Vital Signs Vital signs: Vital Signs Temp 98.0 F 09/06/18 11:33 Pulse 124 H 09/06/18 12:09 Resp 20 09/06/18 11:33 BP 119/74 09/06/18 11:33 Pulse Ox 96 09/06/18 11:33 Intake & Output 09/05/18 09/06/18 09/06/18 18:59 06:59 18:59 Intake Total 1050 1700 700 Output Total 300 Balance 750 1700 700 Weight 61 kg 62.5 kg Intake: Intake, IV Titration 1000 Amount Sodium Chloride 0.9% 1, 1000 000 ml @ 100 mls/hr IV . BY DURATION [facility] Rx#: [id number] Tube Feeding 1050 700 700 Output: Urine 300 Other: Voiding Method Urinal Urinal Urinal # Voids 1 # Bowel Movements 0 - Labs CBC & Chem 7: 09/06/18 04:53 09/06/18 04:53 Labs: Abnormal Lab Results - Last 24 Hours (Table) 09/05/18 09/05/18 09/05/18 Range/Units 06:53 06:53 17:38 RBC (4.30-5.90) m/uL Hgb (13.0-17.5) gm/dL Hct (39.0-53.0) % MCH (25.0-35.0) pg MCHC (31.0-37.0) g/dL RDW (11.5-15.5) % Lymphocytes # (1.0-4.8) k/uL BUN (9-20) mg/dL Glucose (74-99) mg/dL POC Glucose (mg/dL) 170 H (75-99) mg/dL Iron 8 L (65-175) ug/dL Iron Saturation 3.40 L (15.00-50.00) Tacrolimus 1.5 L (5.0-20.0) ng/mL 09/05/18 09/06/18 09/06/18 Range/Units 21:23 04:53 04:53 RBC 3.42 L (4.30-5.90) m/uL Hgb 8.1 L (13.0-17.5) gm/dL Hct 27.8 L (39.0-53.0) % MCH 23.8 L (25.0-35.0) pg MCHC 29.2 L (31.0-37.0) g/dL RDW 17.1 H (11.5-15.5) % Lymphocytes # 0.2 L (1.0-4.8) k/uL BUN 34 H (9-20) mg/dL Glucose 123 H (74-99) mg/dL POC Glucose (mg/dL) 115 H (75-99) mg/dL Iron (65-175) ug/dL Iron Saturation (15.00-50.00) Tacrolimus (5.0-20.0) ng/mL 09/06/18 09/06/18 Range/Units 06:40 11:20 RBC (4.30-5.90) m/uL Hgb (13.0-17.5) gm/dL Hct (39.0-53.0) % MCH (25.0-35.0) pg MCHC (31.0-37.0) g/dL RDW (11.5-15.5) % Lymphocytes # (1.0-4.8) k/uL BUN (9-20) mg/dL Glucose (74-99) mg/dL POC Glucose (mg/dL) 134 H 236 H (75-99) mg/dL Iron (65-175) ug/dL Iron Saturation (15.00-50.00) Tacrolimus (5.0-20.0) ng/mL Microbiology - Last 24 Hours (Table) 09/01/18 20:56 Blood Culture - Preliminary Blood No Growth after 96 hours Assessment and Plan Plan: Assessment: 1. 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 Baseline creatinine near 1. 2. Pneumonia maintained on antibiotics. Infectious disease following. 3. 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 Maintained on PEG tube feedings. 4. Anemia of chronic kidney disease. Severe iron deficiency noted. Plan: Maintain home regimen of immunosuppression which is Prograf and prednisone. Patient is currently not on mycophenolate due to infection. Avoid nephrotoxins. Repeat electrolytes in the morning. Prograf level noted to be low at 1.5. Maintain Prograf 1 mg twice daily and prednisone 10 mg daily. He is currently on Solu-Medrol but upon discharge will need to be continued on 10 mg daily of prednisone. Ferrlecit 125 mg IV daily for 3 days. First dose today.
--- NOTE | 2018-09-06 14:53 | P.PN ---
Subjective Progress Note Date: 09/06/18 This is a 68 stroke gentleman who recently underwent back surgery, he has known history of atrial fibrillation, he is on PEG tube feeding because of difficulty in swallowing. 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 Patient is in atrial fibrillation, he is anticoagulated, his coronary risk factors are remarkable for hypertension, he is nondiabetic, he quit smoking in the past. He presented to the hospital primarily with symptoms of dyspnea and associated cough which was felt to be secondary to aspiration pneumonia. He was seen and examined this morning, states overall he's feeling significantly better. His blood pressure today is 152/90 with a heart rate of 108-113. White blood cell count 6.8, hemoglobin 8.8, platelet count 275. Sodium 136, potassium 5.1, BUN 29, creatinine 0.7. 09/05/2018 Patient was seen and examined this morning, continues to have cough but overall states he is feeling better. Chest x-ray continues to show bilateral diffuse infiltrates consistent with aspiration pneumonia, and it is concerning that the patient may have to have a bronchoscopy this week. Continues to be in atrial fibrillation, heart rate at the time of my examination is 108. At times it does go up into the 120 range. Blood pressure this afternoon 166/105, 95% on 6 L of oxygen. Will increase the metoprolol to 50 3 times a day, increase the Cardizem to 90 3 times a day. 05/06/2018 Seen and examined this morning, heart rate in the 90s, patient states she's feeling better overall. Still intermittently confused. Blood pressure 120/70. White blood cell count 3.8, hemoglobin 8.1, platelet count 227. Sodium 138, potassium 4.9, BUN 34, creatinine 0.8. Objective - Vital Signs Vital signs: Vital Signs Temp 98.0 F 09/06/18 11:33 Pulse 124 H 09/06/18 12:09 Resp 20 09/06/18 11:33 BP 119/74 09/06/18 11:33 Pulse Ox 96 09/06/18 11:33 Intake & Output 09/05/18 09/06/18 09/06/18 18:59 06:59 18:59 Intake Total 1050 1700 700 Output Total 300 Balance 750 1700 700 Weight 61 kg 62.5 kg Intake: Intake, IV Titration 1000 Amount Sodium Chloride 0.9% 1, 1000 000 ml @ 100 mls/hr IV . BY DURATION [facility] Rx#: [id number] Tube Feeding 1050 700 700 Output: Urine 300 Other: Voiding Method Urinal Urinal Urinal # Voids 1 # Bowel Movements 0 - Exam PHYSICAL EXAMINATION: GENERAL: 68-year-old gentleman in no acute distress at the time of my examination HEENT: Head is atraumatic, normocephalic. Pupils equal, round. Sclera anicteric. Conjunctiva are clear. Mucous membranes of the mouth are moist. Neck is supple. There is no elevated jugular venous pressure. No carotid bruit is heard. HEART EXAMINATION: Heart S1 S2 irregularly irregular systolic murmur is heard. CHEST EXAMINATION: His reveal crackles to bilateral bases. ABDOMEN: Soft, nontender. Bowel sounds are heard. No organomegaly noted. PEG tube in place. EXTREMITIES: 2+ peripheral pulses with no evidence of peripheral edema and no calf tenderness noted. NEUROLOGIC patient is awake, alert and oriented 3. . - Labs CBC & Chem 7: 09/06/18 04:53 09/06/18 04:53 Labs: Abnormal Lab Results - Last 24 Hours (Table) 09/05/18 09/05/18 09/05/18 Range/Units 06:53 06:53 17:38 RBC (4.30-5.90) m/uL Hgb (13.0-17.5) gm/dL Hct (39.0-53.0) % MCH (25.0-35.0) pg MCHC (31.0-37.0) g/dL RDW (11.5-15.5) % Lymphocytes # (1.0-4.8) k/uL BUN (9-20) mg/dL Glucose (74-99) mg/dL POC Glucose (mg/dL) 170 H (75-99) mg/dL Iron 8 L (65-175) ug/dL Iron Saturation 3.40 L (15.00-50.00) Tacrolimus 1.5 L (5.0-20.0) ng/mL 09/05/18 09/06/18 09/06/18 Range/Units 21:23 04:53 04:53 RBC 3.42 L (4.30-5.90) m/uL Hgb 8.1 L (13.0-17.5) gm/dL Hct 27.8 L (39.0-53.0) % MCH 23.8 L (25.0-35.0) pg MCHC 29.2 L (31.0-37.0) g/dL RDW 17.1 H (11.5-15.5) % Lymphocytes # 0.2 L (1.0-4.8) k/uL BUN 34 H (9-20) mg/dL Glucose 123 H (74-99) mg/dL POC Glucose (mg/dL) 115 H (75-99) mg/dL Iron (65-175) ug/dL Iron Saturation (15.00-50.00) Tacrolimus (5.0-20.0) ng/mL 09/06/18 09/06/18 Range/Units 06:40 11:20 RBC (4.30-5.90) m/uL Hgb (13.0-17.5) gm/dL Hct (39.0-53.0) % MCH (25.0-35.0) pg MCHC (31.0-37.0) g/dL RDW (11.5-15.5) % Lymphocytes # (1.0-4.8) k/uL BUN (9-20) mg/dL Glucose (74-99) mg/dL POC Glucose (mg/dL) 134 H 236 H (75-99) mg/dL Iron (65-175) ug/dL Iron Saturation (15.00-50.00) Tacrolimus (5.0-20.0) ng/mL Microbiology - Last 24 Hours (Table) 09/01/18 20:56 Blood Culture - Preliminary Blood No Growth after 96 hours Assessment and Plan Plan: Assessment and plan #1 pneumonia, probably aspiration pneumonia in a patient with problems swallowing following his recent surgery with PEG tube placement #2 chronic persistent atrial fibrillation, on anticoagulation #3 status post renal transplant #4 hypertension Plan Patient's heart rate today maintained in the 90s to low 100s, we will increase the dose of Cardizem to 120 3 times a day today. Continue current dose of beta rigoberto. DNP note has been reviewed, I agree with a documented findings and plan of care. Patient was seen and examined.
[2018-09-06] MEDS: SODIUM FERRIC GLUCONAT-SUCROSE 125 MG in SODIUM CHLORIDE 0.9% 100 ML IVPB SCH (14:54)
--- NOTE | 2018-09-06 15:56 | P.PN ---
Subjective Progress Note Date: 09/06/18 Principal diagnosis: Pneumonia Progress note dated 09/06/2018 This is a 68-year-old patient with a history of acute aspiration pneumonia, chronic atrial fibrillation, diastolic congestive heart failure, lung cancer with previous lobectomy, status post radiation treatment for lung cancer, general medical debility, status post kidney transplant, and occasional hemoptysis. The patient seemed be doing a bit better. There was some discussion about doing a bronchoscopy on this patient but he so frail, I'm afraid that bronchoscopy might cause marcia respiratory failure. His would not want that. We are going to attempt to help him clear secretions with a flutter valve, incentive spirometer, mucolytics, and mechanical chest physiotherapy. He also remained on antibiotics and bronchodilators. He had a thorough discussion with the patient and his at the bedside. They understand that bronchoscopy would be potentially very dangerous for this patient. Objective - Vital Signs Vital signs: Vital Signs Temp 98.0 F 09/06/18 11:33 Pulse 124 H 09/06/18 12:09 Resp 20 09/06/18 11:33 BP 119/74 09/06/18 11:33 Pulse Ox 96 09/06/18 11:33 Intake & Output 09/05/18 09/06/18 09/06/18 18:59 06:59 18:59 Intake Total 1050 1700 700 Output Total 300 Balance 750 1700 700 Weight 61 kg 62.5 kg Intake: Intake, IV Titration 1000 Amount Sodium Chloride 0.9% 1, 1000 000 ml @ 100 mls/hr IV . BY DURATION [facility] Rx#: [id number] Tube Feeding 1050 700 700 Output: Urine 300 Other: Voiding Method Urinal Urinal Urinal # Voids 1 # Bowel Movements 0 - Exam No acute distress, oriented 3, mild respiratory distress. Nasal O2 in place. HEENT examination is grossly unremarkable. Mucous membranes are moist. No oral lesions. Neck supple. Full range of motion. No adenopathy thyromegaly or neck vein distention. Cardiovascular examination reveals irregular rhythm and rate. S1-S2 normal. No S3 or S4. No discernible murmur noted. Heart sounds are distant. Lungs reveal coarse bilateral inspiratory and expiratory rhonchi and wheezes. There is prolongation on forced maneuver. The patient wheezes on forced maneuver. Diffuse bibasilar crackles are noted. Breath sounds are equal bilaterally. Abdomen soft and bowel sounds are heard. No masses or tenderness. Extremities are intact. No cyanosis clubbing or edema. Skin is without rash or lesion. Neurologic examination is brief but nonfocal. - Labs CBC & Chem 7: 09/06/18 04:53 09/06/18 04:53 Labs: Abnormal Lab Results - Last 24 Hours (Table) 09/05/18 09/05/18 09/05/18 Range/Units 06:53 06:53 17:38 RBC (4.30-5.90) m/uL Hgb (13.0-17.5) gm/dL Hct (39.0-53.0) % MCH (25.0-35.0) pg MCHC (31.0-37.0) g/dL RDW (11.5-15.5) % Lymphocytes # (1.0-4.8) k/uL BUN (9-20) mg/dL Glucose (74-99) mg/dL POC Glucose (mg/dL) 170 H (75-99) mg/dL Iron 8 L (65-175) ug/dL Iron Saturation 3.40 L (15.00-50.00) Tacrolimus 1.5 L (5.0-20.0) ng/mL 09/05/18 09/06/18 09/06/18 Range/Units 21:23 04:53 04:53 RBC 3.42 L (4.30-5.90) m/uL Hgb 8.1 L (13.0-17.5) gm/dL Hct 27.8 L (39.0-53.0) % MCH 23.8 L (25.0-35.0) pg MCHC 29.2 L (31.0-37.0) g/dL RDW 17.1 H (11.5-15.5) % Lymphocytes # 0.2 L (1.0-4.8) k/uL BUN 34 H (9-20) mg/dL Glucose 123 H (74-99) mg/dL POC Glucose (mg/dL) 115 H (75-99) mg/dL Iron (65-175) ug/dL Iron Saturation (15.00-50.00) Tacrolimus (5.0-20.0) ng/mL 11/27/18 11/27/18 Range/Units 06:40 11:20 RBC (4.30-5.90) m/uL Hgb (13.0-17.5) gm/dL Hct (39.0-53.0) % MCH (25.0-35.0) pg MCHC (31.0-37.0) g/dL RDW (11.5-15.5) % Lymphocytes # (1.0-4.8) k/uL BUN (9-20) mg/dL Glucose (74-99) mg/dL POC Glucose (mg/dL) 134 H 236 H (75-99) mg/dL Iron (65-175) ug/dL Iron Saturation (15.00-50.00) Tacrolimus (5.0-20.0) ng/mL Microbiology - Last 24 Hours (Table) 09/01/18 20:56 Blood Culture - Preliminary Blood No Growth after 96 hours Assessment and Plan Assessment: Assessment Acute aspiration pneumonia, multilobar Chronic atrial fibrillation Diastolic congestive heart failure Lung cancer, status post lobectomy and radiation therapy. General medical debility Status post kidney transplant Hemoptysis, resolved. Plan: Plan dated 09/06/2018 The patient's medications labs and x-rays are all reviewed. The most recent x- ray was done on September 04. Microbiologic studies are negative. White count 3.8, hemoglobin 8.1, hematocrit 27.8 and platelet count 227,000. Sodium potassium chloride CO2 all normal. BUN 34 creatinine 0.88. Incentive spirometry with instructions was ordered as well as a flutter valve in addition , we will do mechanical chest physiotherapy 3-4 times a day. His overall prognosis is very guarded. His medications are reviewed. Additional recommendations and suggestions will be made for appropriate. Time with Patient: Less than 30
[2018-09-06 16:21] LABS: Glucose,Whole Blood 198 mg/dL (75-99)
[2018-09-06] MEDS: DILTIAZEM ORAL 60 MG TAB PO SCH ×2 (18:06→20:55)
[2018-09-06 20:33] LABS: Glucose,Whole Blood 151 mg/dL (75-99)
[2018-09-06] MEDS: QUEtiapine 25 MG TAB PO SCH (20:56)
[2018-09-07] MEDS: methylPREDNISolone SOD SUCCI 40 MG/ML 1 ML VIAL IV SCH ×2 (00:01→09:00)
[2018-09-07] MEDS: LORazepam 1 MG TAB PO SCH ×4 (00:01→23:14)
[2018-09-07] MEDS: PIPERACILLIN-TAZOBACTAM 3.375 GM in SODIUM CHLORIDE 0.9% 100 ML IVPB SCH ×4 (00:01→23:15)
--- NOTE | 2018-09-07 00:11 | PN ---
PROGRESS NOTE DATE OF SERVICE: 09/06/2018. REASON FOR FOLLOWUP: Pneumonia. INTERVAL HISTORY: The patient is afebrile. He has been breathing comfortably. Denies any significant chest pain. He has some cough but not bringing up any sputum. No nausea, vomiting. No abdominal pain or any diarrhea. Tolerating his tube feeds. EXAMINATION: Blood pressure 114/71 with a pulse of 84, temperature 97.9, he is 94% on 6 L nasal cannula. GENERAL DESCRIPTION: An elderly male lying in bed in no distress. RESPIRATORY SYSTEM: Unlabored breathing. Coarse breath sounds at bases. No wheeze. HEART: S1, S2. Regular rate and rhythm. No tenderness. LABS: Hemoglobin 8.1, white count 3.8 with a BUN of 34, creatinine 0.88. Culture so far negative. DIAGNOSTIC IMPRESSION AND PLAN: Patient admitted to the hospital with diffuse pneumonia with concern for possible resistant gram-negative in view of patient's underlying immunosuppression. The patient is currently covered with Zosyn and the Levaquin, can be transitioned to oral Avelox 400 daily for another week to finish a course of therapy. Continue supportive care. MMODL / IJN: [id number] /
[2018-09-07 06:13] LABS: Glucose,Whole Blood 152 mg/dL (75-99)
[2018-09-07] MEDS: APIXABAN 5 MG TAB PO SCH ×2 (06:26→15:58)
[2018-09-07] MEDS: INSULIN ASPART 100 UNIT/ML 1 ML 10 ML VIAL SQ SCH ×4 (06:26→21:01)
[2018-09-07 06:44] LABS: Anisocytosis Slight; Basophils % (A) 0 %; Eosinophils % (A) 0 %; HCT 28.8 % (39.0-53.0); HGB 8.7 gm/dL (13.0-17.5); Hypochromasia Marked; Lymphocytes # (A) 0.2 k/uL (1.0-4.8); Lymphocytes % (A) 2 %; MCH 23.9 pg (25.0-35.0); MCHC 30.4 g/dL (31.0-37.0); MCV 78.7 fL (80.0-100.0); Mean Platelet Volume 7.3; Microcytosis Slight; Monocytes # (A) 0.2 k/uL (0-1.0); Monocytes % (A) 3 %; Neutrophils # (A) 6.4 k/uL (1.3-7.7); Neutrophils % (A) 94 %; Platelet Count 266 k/uL (150-450); RBC 3.65 m/uL (4.30-5.90); RDW 17.3 % (11.5-15.5); WBC 6.9 k/uL (3.8-10.6)
[2018-09-07] MEDS: IPRATROPIUM-ALBUTEROL 3 ML NEB INHALATION SCH ×4 (07:37→21:28)
[2018-09-07] MEDS: BUDESONIDE 1 MG/2 ML NEBU INHALATION SCH (07:37)
[2018-09-07] MEDS: FORMOTEROL FUMARATE 20 MCG/2 ML NEBU INHALATION SCH (07:37)
[2018-09-07] MEDS: DILTIAZEM ORAL 60 MG TAB PO SCH ×3 (08:59→21:13)
[2018-09-07] MEDS: METOPROLOL TARTRATE 50 MG TAB PO SCH ×3 (09:00→21:12)
[2018-09-07] MEDS: FOLIC ACID 1 MG TAB PO SCH (09:00)
[2018-09-07] MEDS: FAMOTIDINE 20 MG TAB PO SCH (09:00)
[2018-09-07] MEDS: THIAMINE 100 MG TAB PO SCH (09:00)
[2018-09-07] MEDS: MULTIVITAMINS, THERA 1 EACH TAB PO SCH (09:00)
[2018-09-07] MEDS: ALLOPURINOL 100 MG TAB PO SCH (09:00)
[2018-09-07] MEDS: TACROLIMUS 1 MG CAP PO SCH ×2 (09:03→21:13)
[2018-09-07] MEDS: SODIUM FERRIC GLUCONAT-SUCROSE 125 MG in SODIUM CHLORIDE 0.9% 100 ML IVPB SCH (09:14)
--- NOTE | 2018-09-07 10:41 | P.PN ---
Subjective Progress Note Date: 09/07/18 This 68-year-old white male although the practice. 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 He is medically debilitated after back surgery. He has a history of atrial fibrillation on anticoagulation and PEG tube feedings due to aphasia. Apparently for the past several days he's been having increasing cough and shortness of breath. His caregiver at home and call our office notifying us he been eating. He has a history of kidney transplant 2005 is on immunosuppression. He also has a history of chemotherapy and radiation for carcinoma of the tongue and low back to ms with a history of lung carcinoma.. Is currently on prednisone and Prograf for immunosuppression or his kidney transplant. Nursing staff report that he had aspirated while they're trying to give him his meds and feed him. He is currently nothing by mouth with tube feeds only at this time. Nursing staff also reported hemoptysis with his coughing. He recently had lumbar back surgery in the summer of 2017. He reports he still is only able to ambulate with a walker due to pain. He was in [facility] up until 2 weeks ago. 09/03/2018: Overnight patient had pain and was started on liquid hydrocodone through PEG tube. He remains on antibiotics of azithromycin, cefepime, and vancomycin. Nephrology had discontinued one of his immunosuppressants due to his pneumonia. Pulmonology has seen the patient and there is no current need for bronchoscopy at this point. Cardiology recommended to continue his current medications. They're monitoring his atrial fibrillation and he remains on Elequis. He has had some faster heart rates, borderlining RVR with A. fib. Staff are monitoring this. He denies any chest pains or pressures this morning. He denies any nausea or vomiting. He is only had ice chips overnight. He did get a second dose of pain medication approximately 9 AM this morning. His is at bedside and case discussed with her. 09/04/2018: Patient continues to complain of some dry mouth since being made nothing by mouth. His antibiotics were changed by infectious disease to Zyvox and Zosyn. He states today that he is "not feeling well ". He denies any chest pains, pressures. Denies any nausea or vomiting. Does have some mild shortness of breath. Yesterday, Cardiology increased his metoprolol 25 mg 3 times a day due to tachycardia. This a.m. thogh, his heart rate was found to be in the 130s. Above notes per Dr. Polk 09/05/2018: patient examined at the bedside. Patient is awake and alert. He appears confused this afternoon. Spouse is at the bedside. Tolerating tube feedings. He continues to have occasional hemoptysis. Pulmonary is following. He remains tachycardic with a rate in the 120-130s. Cardiology increased metoprolol to 50mg TID and cardizem to 90mg TID. He is receiving Zyvox and Zosyn. Infectious disease is following. 09/06/2018: Patient examined at the bedside with Dr. Polk. Patient continues to have intermittent confusion. He remains on nasal cannula at 6L. metoprolol and Cardizem were increased yesterday per cardiology due to tachycardia. Patient's heart rate currently ranging between 90 and 128. All cultures are negative at this time. Infectious disease is following. Pulmonary is also following. No plans to perform bronchoscopy at this time. Discussed discharge planning with who thinks that it may be too much for her to handle to take care of the patient at home. She is agreeable to subacute rehab at this time. She is requesting [facility]. 09/07/2018 Patient examined at the bedside. Spouse present. Patient's mental status appears to be improving this morning. He remains on nasal cannula at 6 L. Oxygen saturations are greater than 92%. He remains tachycardic with heart rate between 105 and 126. His Cardizem was increased yesterday per cardiology. Infectious disease is following who recommends Avelox for one week at the time of discharge. Spoke with social work who continues to work on discharge planning to [facility]. Objective - Vital Signs Vital signs: Vital Signs Temp 97.6 F 09/07/18 07:55 Pulse 126 H 09/07/18 07:55 Resp 20 09/07/18 07:55 BP 146/114 09/07/18 07:55 Pulse Ox 100 09/07/18 07:55 Intake & Output 09/06/18 09/07/18 09/07/18 18:59 06:59 18:59 Intake Total 1050 1050 Output Total 5000 Balance 1050 -3950 Weight 60.5 kg Intake: Tube Feeding 1050 1050 Output: Stool 5000 Other: Voiding Method Urinal Urinal # Voids 1 # Bowel Movements 2 - Exam GENERAL: This is a 68-year-old male in no apparent distress at the time of examination. HEENT: Head is atraumatic, normocephalic. Pupils are equal, round, and reactive to light. Sclerae anicteric. Conjunctivae are clear. Mucus membranes of the mouth are dry. Neck is supple. RESPIRATORY: Lungs coarse with scattered rhonchi, improved since yesterday. No use of accessory muscles. Patient maintaining oxygen saturation greater than 92 %. CARDIOVASCULAR: Irregular rhythm. Tachycardic. S1 and S2 noted. No JVD noted. No S3 or S4 noted. GASTROINTESTINAL: No distention noted. Abdomen soft and round. Normal active bowel sounds auscultated x 4 quadrants. No pain or tenderness noted upon palpation. Feeding tube intact. INTEGUMENTARY: No cyanosis. No jaundice. No rashes noted. No cellulitis noted. EXTREMITIES: 2+ peripheral pulses. No evidence of peripheral edema. No calf tenderness noted. NEUROLOGIC: Cranial nerves II-XII grossly intact. Dysarthria noted. PSYCHIATRIC: Awake and alert. - Labs CBC & Chem 7: 09/07/18 05:11 09/06/18 04:53 Labs: Abnormal Lab Results - Last 24 Hours (Table) 09/05/18 09/06/18 09/06/18 Range/Units 06:53 11:20 16:00 RBC (4.30-5.90) m/uL Hgb (13.0-17.5) gm/dL Hct (39.0-53.0) % MCV (80.0-100.0) fL MCH (25.0-35.0) pg MCHC (31.0-37.0) g/dL RDW (11.5-15.5) % Lymphocytes # (1.0-4.8) k/uL POC Glucose (mg/dL) 236 H 198 H (75-99) mg/dL Tacrolimus 1.5 L (5.0-20.0) ng/mL 09/06/18 09/07/18 09/07/18 Range/Units 20:25 05:11 06:12 RBC 3.65 L (4.30-5.90) m/uL Hgb 8.7 L (13.0-17.5) gm/dL Hct 28.8 L (39.0-53.0) % MCV 78.7 L (80.0-100.0) fL MCH 23.9 L (25.0-35.0) pg MCHC 30.4 L (31.0-37.0) g/dL RDW 17.3 H (11.5-15.5) % Lymphocytes # 0.2 L (1.0-4.8) k/uL POC Glucose (mg/dL) 151 H 152 H (75-99) mg/dL Tacrolimus (5.0-20.0) ng/mL Microbiology - Last 24 Hours (Table) 09/01/18 20:56 Blood Culture - Preliminary Blood No Growth after 120 hours Assessment and Plan Plan: ASSESSMENT: Aspiration pneumonia Chronic atrial fibrillation, on senior care anticoagulation with Eliquis History of renal transplant Hypertension Anemia of chronic disease History of tongue cancer, s/p chemotherapy and radiation History of lung cancer Immunosuppression due to drug therapy Hemoptysis, secondary to pneumonia and anticoagulation Low back pain, s/p recent back surgery May 2018 History of diastolic CHF, no evidence of acute exacerbation Moderate protein calorie malnutrition, albumin 2.7, BMI 18.8 Debility PLAN: Cardiology, pulmonary, and infectious disease on consult. Recommendations and input appreciated Metoprolol and cardizem increased per cardiology. monitor heart rate. PT/OT Home meds as appropriate Monitor labs GI prophylaxis: Pepcid 20mg daily DVT prophylaxis: Eliquis Monitor vital signs and address as appropriate Discharge planning: Patients is agreeable to [facility] at discharge. Requesting [facility]. Further recommendations pending patient's course Anticipate discharge to [facility] tomorrow. May be discharged this afternoon if discharge arrangements are finalized by social work. Nurse practitioner note has been reviewed by physician. Signing provider agrees with the documented findings, assessment, and plan of care.
[2018-09-07] MEDS: LINEZOLID 600 MG in DEXTROSE/WATER 1 300ML.BAG IVPB SCH ×2 (10:42→21:07)
[2018-09-07] MEDS: DOCUSATE 100 MG CAP PO SCH (10:42)
[2018-09-07 12:40] LABS: Glucose,Whole Blood 217 mg/dL (75-99)
--- NOTE | 2018-09-07 13:13 | P.PN ---
Subjective Patient is seen in follow-up for renal transplant management. 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 His baseline creatinine is near 1. Currently being treated for pneumonia. Denies chest pain or shortness of breath. Continues to have a cough but improved. Vital signs are stable. General: The patient appeared well nourished and normally developed. HEENT: Head exam is unremarkable. Neck is without jugular venous distension. LUNGS: Lungs are clear to auscultation and percussion. Breath sounds decreased. HEART: Rate and Rhythm are regular. First and second heart sounds normal. No murmurs, rubs or gallops. ABDOMEN: Abdominal exam reveals normal bowel sounds. Non-tender and non- distended. No evidence of peritonitis. EXTREMITITES: No clubbing, cyanosis, or edema. Objective - Vital Signs Vital signs: Vital Signs Temp 97.7 F 09/07/18 12:00 Pulse 73 09/07/18 12:00 Resp 16 09/07/18 12:00 BP 142/73 09/07/18 12:00 Pulse Ox 95 09/07/18 12:00 Intake & Output 09/06/18 09/07/18 09/07/18 18:59 06:59 18:59 Intake Total 1050 1050 1351 Output Total 5000 Balance 1050 -3950 1351 Weight 60.5 kg Intake: Intake, IV Titration 1001 Amount Trace (Conc-1Ml/Dose) 1 1001 ml In Sodium Chloride 0.9 % 1,000 ml @ 100 mls/hr IV .BY DURATION NORY Rx#: [id number] Tube Feeding 1050 1050 350 Output: Stool 5000 Other: Voiding Method Urinal Urinal Urinal Diaper # Voids 1 # Bowel Movements 2 - Labs CBC & Chem 7: 09/07/18 05:11 09/06/18 04:53 Labs: Abnormal Lab Results - Last 24 Hours (Table) 09/06/18 09/06/18 09/07/18 Range/Units 16:00 20:25 05:11 RBC 3.65 L (4.30-5.90) m/uL Hgb 8.7 L (13.0-17.5) gm/dL Hct 28.8 L (39.0-53.0) % MCV 78.7 L (80.0-100.0) fL MCH 23.9 L (25.0-35.0) pg MCHC 30.4 L (31.0-37.0) g/dL RDW 17.3 H (11.5-15.5) % Lymphocytes # 0.2 L (1.0-4.8) k/uL POC Glucose (mg/dL) 198 H 151 H (75-99) mg/dL 09/07/18 09/07/18 Range/Units 06:12 12:31 RBC (4.30-5.90) m/uL Hgb (13.0-17.5) gm/dL Hct (39.0-53.0) % MCV (80.0-100.0) fL MCH (25.0-35.0) pg MCHC (31.0-37.0) g/dL RDW (11.5-15.5) % Lymphocytes # (1.0-4.8) k/uL POC Glucose (mg/dL) 152 H 217 H (75-99) mg/dL Microbiology - Last 24 Hours (Table) 09/01/18 20:56 Blood Culture - Preliminary Blood No Growth after 120 hours Assessment and Plan Plan: Assessment: 1. 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 Baseline creatinine near 1. 2. Pneumonia maintained on antibiotics. Infectious disease following. 3. 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 Maintained on PEG tube feedings. 4. Anemia of chronic kidney disease. Severe iron deficiency noted. Plan: Maintain home regimen of immunosuppression which is Prograf and prednisone. Patient is currently not on mycophenolate due to infection. Avoid nephrotoxins. Repeat electrolytes in the morning. Prograf level noted to be low at 1.5. Maintain Prograf 1 mg twice daily and prednisone 10 mg daily. He is currently on Solu-Medrol but upon discharge will need to be continued on 10 mg daily of prednisone. Ferrlecit 125 mg IV daily for 3 days. Second dose today.
--- NOTE | 2018-09-07 13:28 | XR ---
EXAMINATION TYPE: XR chest 1V portable DATE OF EXAM: 09/07/2018 COMPARISON: 09/04/2018 HISTORY: Follow-up pneumonia TECHNIQUE: Single frontal view of the chest is obtained. FINDINGS: Bilateral consolidation and pleural effusion. No pneumothorax. Nodular appearing mass or d ensity in the left upper lobe is stable. Diffuse osteopenia noted. IMPRESSION: Bilateral consolidation and pleural effusion is stable with diffuse airspace disease. Ca nnot exclude a mass in the left upper lobe.
--- NOTE | 2018-09-07 13:47 | P.PN ---
Subjective Progress Note Date: 09/07/18 Principal diagnosis: Pneumonia Progress note dated 09/06/2018 This is a 68-year-old patient with a history of acute aspiration pneumonia, chronic atrial fibrillation, diastolic congestive heart failure, lung cancer with previous lobectomy, status post radiation treatment for lung cancer, general medical debility, status post kidney transplant, and occasional hemoptysis. The patient seemed be doing a bit better. There was some discussion about doing a bronchoscopy on this patient but he so frail, I'm afraid that bronchoscopy might cause marcia respiratory failure. His would not want that. We are going to attempt to help him clear secretions with a flutter valve, incentive spirometer, mucolytics, and mechanical chest physiotherapy. He also remained on antibiotics and bronchodilators. He had a thorough discussion with the patient and his at the bedside. They understand that bronchoscopy would be potentially very dangerous for this patient. 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 The patient seemed to be improving every day. There is some consideration given to bronchoscopy but I believe it would be too risky for this patient. The patient is currently using incentive spirometry, flutter valve, and is having mechanical chest physiotherapy. He is also on mucolytics and breathing treatments. His notices a difference. I did tell him that it was important that he not lay flat in bed. Head of bed should be elevated at all times and he should be considered a high risk for aspiration. He may be discharged tomorrow according to his although she is not sure. He may go to a jail. I did speak to Dr. Polk, his primary physician about him. Objective - Vital Signs Vital signs: Vital Signs Temp 97.7 F 09/07/18 12:00 Pulse 73 09/07/18 12:00 Resp 16 09/07/18 12:00 BP 142/73 09/07/18 12:00 Pulse Ox 95 09/07/18 12:00 Intake & Output 09/06/18 09/07/18 09/07/18 18:59 06:59 18:59 Intake Total 1050 1050 1351 Output Total 5000 Balance 1050 -3950 1351 Weight 60.5 kg Intake: Intake, IV Titration 1001 Amount Trace (Conc-1Ml/Dose) 1 1001 ml In Sodium Chloride 0.9 % 1,000 ml @ 100 mls/hr IV .BY DURATION NORY Rx#: [id number] Tube Feeding 1050 1050 350 Output: Stool 5000 Other: Voiding Method Urinal Urinal Urinal Diaper # Voids 1 # Bowel Movements 2 - Exam No acute distress, oriented 3, mild respiratory distress. Nasal O2 in place. Frail appearing. HEENT examination is grossly unremarkable. Mucous membranes are moist. No oral lesions. Neck supple. Full range of motion. No adenopathy thyromegaly or neck vein distention. Cardiovascular examination reveals irregular rhythm and rate. S1-S2 normal. No S3 or S4. No discernible murmur noted. Heart sounds are distant. Lungs reveal coarse bilateral inspiratory and expiratory rhonchi and wheezes. There is prolongation on forced maneuver. The patient wheezes on forced maneuver. Diffuse bibasilar crackles are noted. Breath sounds are equal bilaterally. Abdomen soft and bowel sounds are heard. No masses or tenderness. Extremities are intact. No cyanosis clubbing or edema. Skin is without rash or lesion. Neurologic examination is brief but nonfocal. The patient has significant extremity weakness. - Labs CBC & Chem 7: 09/07/18 05:11 09/06/18 04:53 Labs: Abnormal Lab Results - Last 24 Hours (Table) 09/06/18 09/06/18 09/07/18 Range/Units 16:00 20:25 05:11 RBC 3.65 L (4.30-5.90) m/uL Hgb 8.7 L (13.0-17.5) gm/dL Hct 28.8 L (39.0-53.0) % MCV 78.7 L (80.0-100.0) fL MCH 23.9 L (25.0-35.0) pg MCHC 30.4 L (31.0-37.0) g/dL RDW 17.3 H (11.5-15.5) % Lymphocytes # 0.2 L (1.0-4.8) k/uL POC Glucose (mg/dL) 198 H 151 H (75-99) mg/dL 09/07/18 09/07/18 Range/Units 06:12 12:31 RBC (4.30-5.90) m/uL Hgb (13.0-17.5) gm/dL Hct (39.0-53.0) % MCV (80.0-100.0) fL MCH (25.0-35.0) pg MCHC (31.0-37.0) g/dL RDW (11.5-15.5) % Lymphocytes # (1.0-4.8) k/uL POC Glucose (mg/dL) 152 H 217 H (75-99) mg/dL Microbiology - Last 24 Hours (Table) 09/01/18 20:56 Blood Culture - Preliminary Blood No Growth after 120 hours Assessment and Plan Assessment: Assessment Acute aspiration pneumonia, multilobar Chronic atrial fibrillation Diastolic congestive heart failure Lung cancer, status post lobectomy and radiation therapy. General medical debility Status post kidney transplant Hemoptysis, resolved. Plan: Plan dated 09/06/2018 The patient's medications labs and x-rays are all reviewed. The most recent x- ray was done on September 04. Microbiologic studies are negative. White count 3.8, hemoglobin 8.1, hematocrit 27.8 and platelet count 227,000. Sodium potassium chloride CO2 all normal. BUN 34 creatinine 0.88. Incentive spirometry with instructions was ordered as well as a flutter valve in addition , we will do mechanical chest physiotherapy 3-4 times a day. His overall prognosis is very guarded. His medications are reviewed. Additional recommendations and suggestions will be made for appropriate. Plan dated 09/07/2018 The patient's chest x-ray my opinion is stable and shows diffuse bilateral infiltrates. Microbiologic studies are negative. The patient seems to be clinically improved. He is using the flutter valve and also doing incentive spirometry on a more regular basis. We also recommended mechanical chest physiotherapy. 4 times a day. White count is 6.9, hemoglobin 8.7 hematocrit 28.8 and platelet count 266,000. In addition, I discontinued the Pulmicort and Perforomist. We put him on Symbicort 160/4.5, 2 puffs twice a day. In addition , I stopped the Solu-Medrol and put the patient on prednisone 20 mg a day. Additional recommendations and suggestions are forthcoming. Prognosis is guarded. Time with Patient: Less than 30
--- NOTE | 2018-09-07 16:22 | P.PN ---
Subjective Progress Note Date: 09/07/18 This is a 68 stroke gentleman who recently underwent back surgery, he has known history of atrial fibrillation, he is on PEG tube feeding because of difficulty in swallowing. 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 Patient is in atrial fibrillation, he is anticoagulated, his coronary risk factors are remarkable for hypertension, he is nondiabetic, he quit smoking in the past. He presented to the hospital primarily with symptoms of dyspnea and associated cough which was felt to be secondary to aspiration pneumonia. He was seen and examined this morning, states overall he's feeling significantly better. His blood pressure today is 152/90 with a heart rate of 108-113. White blood cell count 6.8, hemoglobin 8.8, platelet count 275. Sodium 136, potassium 5.1, BUN 29, creatinine 0.7. 09/05/2018 Patient was seen and examined this morning, continues to have cough but overall states he is feeling better. Chest x-ray continues to show bilateral diffuse infiltrates consistent with aspiration pneumonia, and it is concerning that the patient may have to have a bronchoscopy this week. Continues to be in atrial fibrillation, heart rate at the time of my examination is 108. At times it does go up into the 120 range. Blood pressure this afternoon 166/105, 95% on 6 L of oxygen. Will increase the metoprolol to 50 3 times a day, increase the Cardizem to 90 3 times a day. 09/06/2018 Seen and examined this morning, heart rate in the 90s, patient states she's feeling better overall. Still intermittently confused. Blood pressure 120/70. White blood cell count 3.8, hemoglobin 8.1, platelet count 227. Sodium 138, potassium 4.9, BUN 34, creatinine 0.8. 09/07/2018 Patient was seen and examined this morning, heart rate seems to be under much better control today overall. He does state he is also feeling better. Blood pressure 142/72, heart rate in the 70s. 95% on 6 L of oxygen. Objective - Vital Signs Vital signs: Vital Signs Temp 97.7 F 09/07/18 15:29 Pulse 127 H 09/07/18 15:29 Resp 18 09/07/18 15:29 BP 153/109 09/07/18 15:29 Pulse Ox 96 11/28/18 15:29 Intake & Output 09/06/18 09/07/18 09/07/18 18:59 06:59 18:59 Intake Total 1050 1050 1351 Output Total 5000 Balance 1050 -3950 1351 Weight 60.5 kg Intake: Intake, IV Titration 1001 Amount Trace (Conc-1Ml/Dose) 1 1001 ml In Sodium Chloride 0.9 % 1,000 ml @ 100 mls/hr IV .BY DURATION NORY Rx#: [id number] Tube Feeding 1050 1050 350 Output: Stool 5000 Other: Voiding Method Urinal Urinal Urinal Diaper # Voids 1 # Bowel Movements 2 - Exam PHYSICAL EXAMINATION: GENERAL: 68-year-old gentleman in no acute distress at the time of my examination HEENT: Head is atraumatic, normocephalic. Pupils equal, round. Sclera anicteric. Conjunctiva are clear. Mucous membranes of the mouth are moist. Neck is supple. There is no elevated jugular venous pressure. No carotid bruit is heard. HEART EXAMINATION: Heart S1 S2 irregularly irregular systolic murmur is heard. CHEST EXAMINATION: His reveal crackles to bilateral bases. ABDOMEN: Soft, nontender. Bowel sounds are heard. No organomegaly noted. PEG tube in place. EXTREMITIES: 2+ peripheral pulses with no evidence of peripheral edema and no calf tenderness noted. NEUROLOGIC patient is awake, alert and oriented 3. . - Labs CBC & Chem 7: 09/07/18 05:11 09/06/18 04:53 Labs: Abnormal Lab Results - Last 24 Hours (Table) 09/06/18 09/06/18 09/07/18 Range/Units 16:00 20:25 05:11 RBC 3.65 L (4.30-5.90) m/uL Hgb 8.7 L (13.0-17.5) gm/dL Hct 28.8 L (39.0-53.0) % MCV 78.7 L (80.0-100.0) fL MCH 23.9 L (25.0-35.0) pg MCHC 30.4 L (31.0-37.0) g/dL RDW 17.3 H (11.5-15.5) % Lymphocytes # 0.2 L (1.0-4.8) k/uL POC Glucose (mg/dL) 198 H 151 H (75-99) mg/dL 09/07/18 09/07/18 Range/Units 06:12 12:31 RBC (4.30-5.90) m/uL Hgb (13.0-17.5) gm/dL Hct (39.0-53.0) % MCV (80.0-100.0) fL MCH (25.0-35.0) pg MCHC (31.0-37.0) g/dL RDW (11.5-15.5) % Lymphocytes # (1.0-4.8) k/uL POC Glucose (mg/dL) 152 H 217 H (75-99) mg/dL Microbiology - Last 24 Hours (Table) 09/01/18 20:56 Blood Culture - Preliminary Blood No Growth after 120 hours Assessment and Plan Plan: Assessment and plan #1 pneumonia, probably aspiration pneumonia in a patient with problems swallowing following his recent surgery with PEG tube placement #2 chronic persistent atrial fibrillation, on anticoagulation #3 status post renal transplant #4 hypertension Plan Patient's heart rate today maintained in the 80s, we'll continue current dose of beta rigoberto and calcium channel rigoberto. DNP note has been reviewed, I agree with a documented findings and plan of care. Patient was seen and examined.
[2018-09-07 16:43] LABS: Glucose,Whole Blood 214 mg/dL (75-99)
[2018-09-07 20:39] LABS: Glucose,Whole Blood 168 mg/dL (75-99)
[2018-09-07] MEDS: QUEtiapine 25 MG TAB PO SCH (21:13)
[2018-09-07] MEDS: SYMBICORT 160-4.5 MCG INHALER INHALATION SCH (21:28)
--- NOTE | 2018-09-07 22:39 | PN ---
PROGRESS NOTE DATE OF SERVICE: 09/07/2018. REASON FOR FOLLOWUP: Pneumonia. INTERVAL HISTORY: The patient is afebrile. He has been breathing more comfortably. Patient denies having any chest pain. Occasional cough, not bringing up any sputum. No nausea, no vomiting. No abdominal pain. No diarrhea. EXAMINATION: Blood pressure 142/73 with a pulse of 73, temperature 97.7. He is 95% on 6 L nasal cannula. General description is an elderly male lying in bed in no distress. Respiratory system: Unlabored breathing. Coarse breath sounds at the bases. No wheeze. Heart S1, S2. Regular rate and rhythm. Abdomen soft, no tenderness. LABS: Hemoglobin 8.7, white count 6.9. Blood and sputum culture has been negative so far. DIAGNOSTIC IMPRESSION AND PLAN: Patient with extensive bilateral pneumonia with concern for MRSA in the upper lobe, may benefit from a CT of the chest for further evaluation of reported on the x-ray. He is currently on Zosyn and Zyvox to finish therapy with oral antibiotics in the form of Avelox as no resistant organism has been grown. Family was present at bedside. Their questions were answered. MMODL / IJN: [id number] /
[2018-09-08] MEDS: LORazepam 0.5 MG TAB PO PRN (02:44)
[2018-09-08] MEDS: ACETAMINOPHEN TAB 325 MG TAB PEG/G-TUBE PRN (02:44)
[2018-09-08 06:09] LABS: Glucose,Whole Blood 180 mg/dL (75-99)
[2018-09-08] MEDS: LORazepam 1 MG TAB PO SCH ×3 (06:23→23:03)
[2018-09-08] MEDS: INSULIN ASPART 100 UNIT/ML 1 ML 10 ML VIAL SQ SCH ×4 (06:23→21:43)
[2018-09-08] MEDS: APIXABAN 5 MG TAB PO SCH ×2 (06:23→16:05)
[2018-09-08] MEDS: IPRATROPIUM-ALBUTEROL 3 ML NEB INHALATION SCH ×4 (07:09→20:03)
[2018-09-08] MEDS: SYMBICORT 160-4.5 MCG INHALER INHALATION SCH ×2 (07:09→20:03)
[2018-09-08] MEDS: LINEZOLID 600 MG in DEXTROSE/WATER 1 300ML.BAG IVPB SCH ×2 (09:31→21:02)
[2018-09-08] MEDS: PIPERACILLIN-TAZOBACTAM 3.375 GM in SODIUM CHLORIDE 0.9% 100 ML IVPB SCH ×3 (09:33→23:03)
[2018-09-08] MEDS: FAMOTIDINE 20 MG TAB PO SCH (09:36)
[2018-09-08] MEDS: TACROLIMUS 1 MG CAP PO SCH ×2 (09:36→21:03)
[2018-09-08] MEDS: FOLIC ACID 1 MG TAB PO SCH (09:36)
[2018-09-08] MEDS: ALLOPURINOL 100 MG TAB PO SCH (09:36)
[2018-09-08] MEDS: METOPROLOL TARTRATE 50 MG TAB PO SCH ×3 (09:36→21:02)
[2018-09-08] MEDS: predniSONE 20 MG TAB PO SCH (09:37)
[2018-09-08] MEDS: THIAMINE 100 MG TAB PO SCH (09:37)
[2018-09-08] MEDS: DOCUSATE 100 MG CAP PO SCH (09:37)
[2018-09-08] MEDS: MULTIVITAMINS, THERA 1 EACH TAB PO SCH (09:37)
[2018-09-08] MEDS: DILTIAZEM ORAL 60 MG TAB PO SCH ×3 (09:37→21:02)
--- NOTE | 2018-09-08 10:52 | P.PN ---
Subjective Patient is seen in follow-up for renal transplant management. 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 His baseline creatinine is near 1. Currently being treated for pneumonia. Denies chest pain or shortness of breath. Continues to have a cough but improved. Admits to loose bowel movements. Vital signs are stable. General: The patient appeared well nourished and normally developed. HEENT: Head exam is unremarkable. Neck is without jugular venous distension. LUNGS: Lungs are clear to auscultation and percussion. Breath sounds decreased. HEART: Rate and Rhythm are regular. First and second heart sounds normal. No murmurs, rubs or gallops. ABDOMEN: Abdominal exam reveals normal bowel sounds. Non-tender and non- distended. No evidence of peritonitis. EXTREMITITES: No clubbing, cyanosis, or edema. Objective - Vital Signs Vital signs: Vital Signs Temp 97.4 F L 09/08/18 08:00 Pulse 127 H 09/08/18 08:00 Resp 18 09/08/18 08:00 BP 154/101 09/08/18 08:00 Pulse Ox 99 09/08/18 08:00 Intake & Output 09/07/18 09/08/18 09/08/18 18:59 06:59 18:59 Intake Total 2051 1400 Output Total 3000 Balance 205 -1600 Weight 63.5 kg Intake: Intake, IV Titration 1001 Amount Trace (Conc-1Ml/Dose) 1 1001 ml In Sodium Chloride 0.9 % 1,000 ml @ 100 mls/hr IV .BY DURATION [facility] Rx#: [id number] Tube Feeding 1050 1400 Output: Stool 3000 Other: Voiding Method Urinal Urinal Diaper Diaper # Voids 2 # Bowel Movements 3 1 - Labs CBC & Chem 7: 09/07/18 05:11 09/06/18 04:53 Labs: Abnormal Lab Results - Last 24 Hours (Table) 09/07/18 09/07/18 09/07/18 Range/Units 12:31 16:40 20:37 POC Glucose (mg/dL) 217 H 214 H 168 H (75-99) mg/dL 09/08/18 Range/Units 06:06 POC Glucose (mg/dL) 180 H (75-99) mg/dL Microbiology - Last 24 Hours (Table) 09/01/18 20:56 Blood Culture - Final Blood No Growth after 144 hours Assessment and Plan Plan: Assessment: 1. 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 Baseline creatinine near 1. 2. Pneumonia maintained on antibiotics. Infectious disease following. 3. 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 Maintained on PEG tube feedings. 4. Anemia of chronic kidney disease. Severe iron deficiency noted. Plan: Maintain home regimen of immunosuppression which is Prograf and prednisone. Patient is currently not on mycophenolate due to infection. Avoid nephrotoxins. Repeat electrolytes in the morning. Prograf level noted to be low at 1.5. Maintain Prograf 1 mg twice daily and prednisone 10 mg daily. He was on Solu- Medrol and is now on prednisone 20 mg daily. Upon discharge he will need to be continued on 10 mg of prednisone. Ferrlecit 125 mg IV daily for 3 days. Third dose today.
[2018-09-08 11:33] LABS: Glucose,Whole Blood 199 mg/dL (75-99)
--- NOTE | 2018-09-08 11:33 | P.PN ---
Subjective Progress Note Date: 09/08/18 This is a 68 stroke gentleman who recently underwent back surgery, he has known history of atrial fibrillation, he is on PEG tube feeding because of difficulty in swallowing. 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 Patient is in atrial fibrillation, he is anticoagulated, his coronary risk factors are remarkable for hypertension, he is nondiabetic, he quit smoking in the past. He presented to the hospital primarily with symptoms of dyspnea and associated cough which was felt to be secondary to aspiration pneumonia. He was seen and examined this morning, states overall he's feeling significantly better. His blood pressure today is 152/90 with a heart rate of 108-113. White blood cell count 6.8, hemoglobin 8.8, platelet count 275. Sodium 136, potassium 5.1, BUN 29, creatinine 0.7. 09/05/2018 Patient was seen and examined this morning, continues to have cough but overall states he is feeling better. Chest x-ray continues to show bilateral diffuse infiltrates consistent with aspiration pneumonia, and it is concerning that the patient may have to have a bronchoscopy this week. Continues to be in atrial fibrillation, heart rate at the time of my examination is 108. At times it does go up into the 120 range. Blood pressure this afternoon 166/105, 95% on 6 L of oxygen. Will increase the metoprolol to 50 3 times a day, increase the Cardizem to 90 3 times a day. 09/06/2018 Seen and examined this morning, heart rate in the 90s, patient states she's feeling better overall. Still intermittently confused. Blood pressure 120/70. White blood cell count 3.8, hemoglobin 8.1, platelet count 227. Sodium 138, potassium 4.9, BUN 34, creatinine 0.8. 09/07/2018 Patient was seen and examined this morning, heart rate seems to be under much better control today overall. He does state he is also feeling better. Blood pressure 142/72, heart rate in the 70s. 95% on 6 L of oxygen. 09/08/2018 Patient seen and examined this morning, overall doing well. Heart rate in the 90s. Blood pressure 154/90. Objective - Vital Signs Vital signs: Vital Signs Temp 97.4 F L 09/08/18 08:00 Pulse 86 09/08/18 11:14 Resp 18 09/08/18 08:00 BP 154/101 09/08/18 08:00 Pulse Ox 99 09/08/18 08:00 Intake & Output 09/07/18 09/08/18 09/08/18 18:59 06:59 18:59 Intake Total 2050 1400 Output Total 3000 Balance 2050 -1599 Weight 63.5 kg Intake: Intake, IV Titration 1001 Amount Trace (Conc-1Ml/Dose) 1 1001 ml In Sodium Chloride 0.9 % 1,000 ml @ 100 mls/hr IV .BY DURATION [facility] Rx#: [id number] Tube Feeding 1050 1400 Output: Stool 3000 Other: Voiding Method Urinal Urinal Diaper Diaper # Voids 2 # Bowel Movements 3 1 - Exam PHYSICAL EXAMINATION: GENERAL: 68-year-old gentleman in no acute distress at the time of my examination HEENT: Head is atraumatic, normocephalic. Pupils equal, round. Sclera anicteric. Conjunctiva are clear. Mucous membranes of the mouth are moist. Neck is supple. There is no elevated jugular venous pressure. No carotid bruit is heard. HEART EXAMINATION: Heart S1 S2 irregularly irregular systolic murmur is heard. CHEST EXAMINATION: His reveal crackles to bilateral bases. ABDOMEN: Soft, nontender. Bowel sounds are heard. No organomegaly noted. PEG tube in place. EXTREMITIES: 2+ peripheral pulses with no evidence of peripheral edema and no calf tenderness noted. NEUROLOGIC patient is awake, alert and oriented 3. . - Labs CBC & Chem 7: 09/07/18 05:11 09/06/18 04:53 Labs: Abnormal Lab Results - Last 24 Hours (Table) 09/07/18 09/07/18 09/07/18 Range/Units 12:31 16:40 20:37 POC Glucose (mg/dL) 217 H 214 H 168 H (75-99) mg/dL 09/08/18 Range/Units 06:06 POC Glucose (mg/dL) 180 H (75-99) mg/dL Microbiology - Last 24 Hours (Table) 09/01/18 20:56 Blood Culture - Final Blood No Growth after 144 hours Assessment and Plan Plan: Assessment and plan #1 pneumonia, probably aspiration pneumonia in a patient with problems swallowing following his recent surgery with PEG tube placement #2 chronic persistent atrial fibrillation, on anticoagulation #3 status post renal transplant #4 hypertension Plan Patient's heart rate today maintained in the 80s, we'll continue current dose of beta rigoberto and calcium channel rigoberto. We will follow this patient along with you now on an as-needed basis only, please don't hesitate to call with any questions. DNP note has been reviewed, I agree with a documented findings and plan of care. Patient was seen and examined.
--- NOTE | 2018-09-08 12:11 | P.DS ---
Providers Date of admission: 09/01/18 23:06 Expected date of discharge: 09/08/18 Attending physician: Pancho Casper Consults: 09/01/18 22:57 Consult Physician Routine Consulting Provider: Sneha Gauthier Consult Reason/Comments: Renal transplant patient Do you want consulting provider notified?: Yes 09/02/18 13:12 Consult Physician Routine Consulting Provider: Carlos Enrique Walker Consult Reason/Comments: anticoagulation, atrial fib, with possible Hemoptysis Do you want consulting provider notified?: Yes 09/02/18 13:16 Consult Physician Routine Consulting Provider: Evangelista Jean Consult Reason/Comments: aspiration pneumonia, hemoptrysis Do you want consulting provider notified?: Yes 09/02/18 15:07 Consult Physician Routine Consulting Provider: Yuniel Abarca Consult Reason/Comments: asp pneumonia Do you want consulting provider notified?: Yes 09/03/18 11:44 Consult Physician Routine Consulting Provider: Yuniel Abarca Consult Reason/Comments: aspiration pneumonia Do you want consulting provider notified?: Yes Primary care physician: [facility] Course: This 68-year-old white male although the practice. 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 He has a history of atrial fibrillation on anticoagulation and PEG tube feedings due to aphasia. Apparently for the past several days he's been having increasing cough and shortness of breath. His caregiver at home and call our office notifying us he been eating. He has a history of kidney transplant 2005 is on immunosuppression. 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 Is currently on prednisone and Prograf for immunosuppression or his kidney transplant. Nursing staff report that he had aspirated while they're trying to give him his meds and feed him. He is currently nothing by mouth with tube feeds only at this time. Nursing staff also reported hemoptysis with his coughing. He recently had lumbar back surgery in the summer of 2018. He reports he still is only able to ambulate with a walker due to pain. [facility]. 09/03/2018: Overnight patient had pain and was started on liquid hydrocodone through PEG tube. He remains on antibiotics of azithromycin, cefepime, and vancomycin. Nephrology had discontinued one of his immunosuppressants due to his pneumonia. Pulmonology has seen the patient and there is no current need for bronchoscopy at this point. Cardiology recommended to continue his current medications. They're monitoring his atrial fibrillation and he remains on Elequis. He has had some faster heart rates, borderlining RVR with A. fib. Staff are monitoring this. He denies any chest pains or pressures this morning. He denies any nausea or vomiting. He is only had ice chips overnight. He did get a second dose of pain medication approximately 9 AM this morning. His is at bedside and case discussed with her. 09/04/2018: Patient continues to complain of some dry mouth since being made nothing by mouth. His antibiotics were changed by infectious disease to Zyvox and Zosyn. He states today that he is "not feeling well ". He denies any chest pains, pressures. Denies any nausea or vomiting. Does have some mild shortness of breath. Yesterday, Cardiology increased his metoprolol 25 mg 3 times a day due to tachycardia. This a.m. thogh, his heart rate was found to be in the 130s. Above notes per Dr. Polk 09/05/2018: patient examined at the bedside. Patient is awake and alert. He appears confused this afternoon. Spouse is at the bedside. Tolerating tube feedings. He continues to have occasional hemoptysis. Pulmonary is following. He remains tachycardic with a rate in the 120-130s. Cardiology increased metoprolol to 50mg TID and cardizem to 90mg TID. He is receiving Zyvox and Zosyn. Infectious disease is following. 09/06/2018: Patient examined at the bedside with Dr. Polk. Patient continues to have intermittent confusion. He remains on nasal cannula at 6L. metoprolol and Cardizem were increased yesterday per cardiology due to tachycardia. Patient's heart rate currently ranging between 90 and 128. All cultures are negative at this time. Infectious disease is following. Pulmonary is also following. No plans to perform bronchoscopy at this time. Discussed discharge planning with who thinks that it may be too much for her to handle to take care of the patient at home. She is agreeable to subacute rehab at this time. She is requesting [facility]. 09/07/2018 Patient examined at the bedside. Spouse present. Patient's mental status appears to be improving this morning. He remains on nasal cannula at 6 L. Oxygen saturations are greater than 92%. He remains tachycardic with heart rate between 105 and 126. His Cardizem was increased yesterday per cardiology. Infectious disease is following who recommends Avelox for one week at the time of discharge. Spoke with social work who continues to work on discharge planning. 09/08/2018 Patient examined at the bedside. Spouse is present. Patient remains stable. Patient's heart rate has been controlled. He remains on nasal cannula with oxygen saturations greater then 92%. Patient is stable for discharge to ECF facility today once arrangements are finalized. 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 Signing provider agrees with the documented findings, assessment, and plan of care. Patient Condition at Discharge: Stable Plan - Discharge Summary New Discharge Prescriptions: New Acetaminophen Tab [Tylenol] 650 mg PEG/G-TUBE Q4HR PRN tab PRN Reason: Fever And/ Or Pain Budesonide-Formot 160-4.5 Mcg [Symbicort 160-4.5 Mcg Inhaler] 2 puff INHALATION RT-BID puff Diltiazem Oral [Cardizem*] 120 mg PO TID tab Metoprolol Tartrate [Lopressor] 50 mg PO TID tab predniSONE 20 mg PO DAILY 3 Days tab QUEtiapine [SEROquel] 25 mg PO HS #3 tab Moxifloxacin HCl [Avelox] 400 mg PEG/G-TUBE DAILY #7 tablet Continue Tacrolimus [Prograf] 2 mg PO BID Multivitamins, Thera [Multivitamin (formulary)] 1 tab PO DAILY Cyanocobalamin (Vitamin B-12) [Vitamin B-12] 1,000 mcg PO DAILY Mycophenolate Sodium [Mycophenolic Acid] 360 mg PO BID Apixaban [Eliquis] 5 mg PO BID@0600,1800 #60 tab Allopurinol [Zyloprim] 100 mg PO DAILY Folic Acid 1 mg PO DAILY Thiamine [Vitamin B-1] 100 mg PO DAILY Ipratropium-Albuterol Nebulize [Duoneb 0.5 mg-3 mg/3 ml Soln] 3 ml INHALATION RT-QID Famotidine [Pepcid] 20 mg PO DAILY Docusate [Colace] 100 mg PO DAILY LORazepam [Ativan] 1 mg PO Q8H #9 tab LORazepam [Ativan] 0.5 mg PO HS PRN #3 tablet PRN Reason: Anxiety Changed predniSONE 10 mg PO DAILY #0 Discontinued ALPRAZolam [Xanax] 0.5 mg PO TID PRN PRN Reason: Anxiety Metoprolol Tartrate [Lopressor] 25 mg PO BID Diltiazem Oral [Cardizem*] 30 mg PO TID #90 tab Discharge Medication List Tacrolimus [Prograf] 2 mg PO BID 11/15/14 [History] Cyanocobalamin (Vitamin B-12) [Vitamin B-12] 1,000 mcg PO DAILY 01/27/18 [ History] Multivitamins, Thera [Multivitamin (formulary)] 1 tab PO DAILY 01/27/18 [History ] Mycophenolate Sodium [Mycophenolic Acid] 360 mg PO BID 01/27/18 [History] Apixaban [Eliquis] 5 mg PO BID@0600,1800 #60 tab 01/30/18 [Rx] Allopurinol [Zyloprim] 100 mg PO DAILY 04/14/18 [History] Docusate [Colace] 100 mg PO DAILY 09/01/18 [History] Famotidine [Pepcid] 20 mg PO DAILY 09/01/18 [History] Folic Acid 1 mg PO DAILY 09/01/18 [History] Ipratropium-Albuterol Nebulize [Duoneb 0.5 mg-3 mg/3 ml Soln] 3 ml INHALATION RT -QID 09/01/18 [History] Thiamine [Vitamin B-1] 100 mg PO DAILY 09/01/18 [History] Acetaminophen Tab [Tylenol] 650 mg PEG/G-TUBE Q4HR PRN tab 09/08/18 [Rx] Budesonide-Formot 160-4.5 Mcg [Symbicort 160-4.5 Mcg Inhaler] 2 puff INHALATION RT-BID puff 09/08/18 [Rx] Diltiazem Oral [Cardizem*] 120 mg PO TID tab 09/08/18 [Rx] LORazepam [Ativan] 0.5 mg PO HS PRN #3 tablet 09/08/18 [Rx] LORazepam [Ativan] 1 mg PO Q8H #9 tab 09/08/18 [Rx] Metoprolol Tartrate [Lopressor] 50 mg PO TID tab 09/08/18 [Rx] Moxifloxacin HCl [Avelox] 400 mg PEG/G-TUBE DAILY #7 tablet 09/08/18 [Rx] QUEtiapine [SEROquel] 25 mg PO HS #3 tab 09/08/18 [Rx] predniSONE 10 mg PO DAILY #0 09/08/18 [Rx] predniSONE 20 mg PO DAILY 3 Days tab 09/08/18 [Rx] Follow up Appointment(s)/Referral(s): Pancho Casper Jr, DO [Primary Care Provider] - 1-2 Days () Chema Cordoba DO [Doctor of Osteopathic Medicine] - 2 Weeks Xin Luz MD [STAFF PHYSICIAN] - 2 Weeks Mehul Lunsford DO [STAFF PHYSICIAN] - 2 Weeks Activity/Diet/Wound Care/Special Instructions: [place] Patient to take prednisone 20mg daily for THREE days, and then resume his previous home dose of prednisone of 10mg daily Continue EN as patient does at home" bolus of 350ml, 6 times per day, glucerna 1.2. Free water flush 100cc every 4 hours NPO-High risk for aspiration May use mouth swabs to moisten oral mucosa Activity as tolerated Oxygen via NC to maintain o2 sats greater than 92% Discharge Disposition: TRANSFER TO SNF/ECF
[2018-09-08 12:27] VITALS: BMI 19.5
[2018-09-08] MEDS: SODIUM FERRIC GLUCONAT-SUCROSE 125 MG in SODIUM CHLORIDE 0.9% 100 ML IVPB SCH (12:56)
--- NOTE | 2018-09-08 13:07 | XR ---
EXAMINATION TYPE: XR abdomen 1V DATE OF EXAM: 09/08/2018 COMPARISON: NONE HISTORY: Diarrhea TECHNIQUE: One view abdominal series FINDINGS: The osseous structures are intact. The bowel gas pattern is nonspecific. Postsurgical changes involv ing the hips and lumbar spine. Gastrostomy tube noted. Calcifications in the pelvis likely vascular. Chronic deformity of the rib cage on the left. There is a 2 mm calcification right upper quadrant. IMPRESSION: 1. Nonspecific abdomen. 2. Possible punctate 2 mm right renal calculus.
--- NOTE | 2018-09-08 14:58 | P.PN ---
Subjective Progress Note Date: 09/08/18 Principal diagnosis: Pneumonia Progress note dated 09/06/2018 This is a 68-year-old patient with a history of acute aspiration pneumonia, chronic atrial fibrillation, diastolic congestive heart failure, lung cancer with previous lobectomy, status post radiation treatment for lung cancer, general medical debility, status post kidney transplant, and occasional hemoptysis. The patient seemed be doing a bit better. There was some discussion about doing a bronchoscopy on this patient but he so frail, I'm afraid that bronchoscopy might cause marcia respiratory failure. His would not want that. We are going to attempt to help him clear secretions with a flutter valve, incentive spirometer, mucolytics, and mechanical chest physiotherapy. He also remained on antibiotics and bronchodilators. He had a thorough discussion with the patient and his at the bedside. They understand that bronchoscopy would be potentially very dangerous for this patient. 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 The patient seemed to be improving every day. There is some consideration given to bronchoscopy but I believe it would be too risky for this patient. The patient is currently using incentive spirometry, flutter valve, and is having mechanical chest physiotherapy. He is also on mucolytics and breathing treatments. His notices a difference. I did tell him that it was important that he not lay flat in bed. Head of bed should be elevated at all times and he should be considered a high risk for aspiration. He may be discharged tomorrow according to his although she is not sure. He may go to a [facility]. I did speak to Dr. Polk, his primary physician about him. 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 The patient clinically continues to improve but unfortunately, his chest x-ray from yesterday looks worse. We recommend incentive spirometry which is not doing, flutter valve if she is not doing, and chest physiotherapy which is not being done by respiratory therapy. There was some consideration given to bronchoscopy but I believe that it would be dangerous in this individual. I believe he would end up on the ventilator if we attempted bronchoscopy. The patient continues to be very short of breath and has lots of chest congestion. He is coughing and bringing up some phlegm. He should never be never flat in bed and every time we walked into the room, he is relatively flat in bed. We did recommend aspiration precautions. He may end up going to the [facility] according to his physician. We did reiterate with the nurse and performance of these maneuvers to help clear secretions. His chest x-ray from yesterday was reviewed. Objective - Vital Signs Vital signs: Vital Signs Temp 97.4 F L 09/08/18 08:00 Pulse 70 09/08/18 12:00 Resp 18 09/08/18 12:00 BP 154/101 09/08/18 08:00 Pulse Ox 99 09/08/18 08:00 Intake & Output 09/07/18 09/08/18 09/08/18 18:59 06:59 18:59 Intake Total 205 2401 350 Output Total 3000 1000 Balance 2050 -599 -650 Weight 63.5 kg 63.5 kg Intake: Intake, IV Titration 1001 1001 Amount Trace (Conc-1Ml/Dose) 1 1001 1001 ml In Sodium Chloride 0.9 % 1,000 ml @ 100 mls/hr IV .BY DURATION [facility] Rx#: [id number] Tube Feeding 1050 1400 350 Output: Stool 3000 1000 Other: Voiding Method Urinal Urinal Urinal Diaper Diaper Diaper # Voids 2 1 # Bowel Movements 3 1 2 - Exam No acute distress, oriented 3, nasal O2 in place, with a wet congested cough, but no acute respiratory distress today. HEENT examination is grossly unremarkable. Mucous membranes are moist. No oral lesions. Neck supple. Full range of motion. No adenopathy thyromegaly or neck vein distention. Cardiovascular examination reveals irregular rhythm and rate. S1-S2 normal. No S3 or S4. No discernible murmur noted. Heart sounds are distant. Lungs reveal coarse bilateral inspiratory and expiratory rhonchi and wheezes. There is prolongation on forced maneuver. The patient wheezes on forced maneuver. Diffuse bibasilar crackles are noted. Breath sounds are equal bilaterally. Abdomen soft and bowel sounds are heard. No masses or tenderness. Extremities are intact. No cyanosis clubbing or edema. Skin is without rash or lesion. Neurologic examination is brief but nonfocal. The patient has significant extremity weakness. - Labs CBC & Chem 7: 09/07/18 05:11 09/06/18 04:53 Labs: Abnormal Lab Results - Last 24 Hours (Table) 09/07/18 09/07/18 09/08/18 Range/Units 16:40 20:37 06:06 POC Glucose (mg/dL) 214 H 168 H 180 H (75-99) mg/dL 09/08/18 Range/Units 11:31 POC Glucose (mg/dL) 199 H (75-99) mg/dL Microbiology - Last 24 Hours (Table) 09/01/18 20:56 Blood Culture - Final Blood No Growth after 144 hours Assessment and Plan Assessment: Assessment Chronic acute aspiration pneumonia, multilobar Chronic atrial fibrillation Diastolic congestive heart failure Lung cancer, status post lobectomy and radiation therapy. General medical debility Status post kidney transplant Hemoptysis, resolved. Plan: Plan dated 09/06/2018 The patient's medications labs and x-rays are all reviewed. The most recent x- ray was done on September 04. Microbiologic studies are negative. White count 3.8, hemoglobin 8.1, hematocrit 27.8 and platelet count 227,000. Sodium potassium chloride CO2 all normal. BUN 34 creatinine 0.88. Incentive spirometry with instructions was ordered as well as a flutter valve in addition , we will do mechanical chest physiotherapy 3-4 times a day. His overall prognosis is very guarded. His medications are reviewed. Additional recommendations and suggestions will be made for appropriate. Plan dated 09/07/2018 The patient's chest x-ray my opinion is stable and shows diffuse bilateral infiltrates. Microbiologic studies are negative. The patient seems to be clinically improved. He is using the flutter valve and also doing incentive spirometry on a more regular basis. We also recommended mechanical chest physiotherapy. 4 times a day. White count is 6.9, hemoglobin 8.7 hematocrit 28.8 and platelet count 266,000. In addition, I discontinued the Pulmicort and Perforomist. We put him on Symbicort 160/4.5, 2 puffs twice a day. In addition , I stopped the Solu-Medrol and put the patient on prednisone 20 mg a day. Additional recommendations and suggestions are forthcoming. Prognosis is guarded. Plan dated 09/08/2018 The patient's most recent chest x-ray shows worsening bilateral infiltrates. This is especially so in the right upper lobe. Medications are reviewed. There are no new labs from today. Microbiologic studies were negative. Chest x -ray from yesterday was reviewed. The patient's medications are reviewed. Is on appropriate medications. We again stressed the importance of using the flutter valve every hour, incentive spirometry every hour, and doing mechanical chest physiotherapy which is to be provided by respiratory therapy. Additional recommendations and suggestions are forthcoming. I talked to the patient and the patient's . Time with Patient: Less than 30
[2018-09-08 16:23] LABS: Glucose,Whole Blood 163 mg/dL (75-99)
--- NOTE | 2018-09-08 17:52 | PN ---
PROGRESS NOTE DATE OF SERVICE: 09/08/2018 REASON FOR FOLLOWUP: Pneumonia. INTERVAL HISTORY: The patient is afebrile. He has been breathing comfortably. Denies having any chest pain or shortness of breath. Occasional cough. No abdominal pain. He has been complaining of some bleeding from his scrotal area. PHYSICAL EXAMINATION: Blood pressure is 154/100 with a pulse of 127, temperature 97.4. He is 99% on 6 L nasal cannula. General description is an elderly male lying in bed in no distress. RESPIRATORY SYSTEM: Unlabored breathing. Clear to auscultation anteriorly. HEART: S1, S2. Regular rate and rhythm. ABDOMEN: Soft. No tenderness. EXTREMITIES: No edema of the feet. LABS: Hemoglobin 8.7, white count 6.9, BUN of 34, creatinine 0.88. Stool for C difficile has been negative. Blood and sputum cultures have been negative. DIAGNOSTIC IMPRESSION AND PLAN: 1. Patient admitted to hospital with extensive pneumonia. Plan is to finish therapy with oral Avelox 400 for another 5-7 days. 2. Patient did have significant excoriation in the scrotal area. Keep the area dry and apply nystatin powder twice a day. 3. Symptomatic treatment of his diarrhea. Hopefully it will improve once the antibiotics are cut back. 4. Continue supportive care. MMODL / IJN: [id number] /
[2018-09-08] MEDS: QUEtiapine 25 MG TAB PO SCH (21:02)
[2018-09-08 21:11] LABS: Glucose,Whole Blood 229 mg/dL (75-99)
[2018-09-09 00:55] VITALS: RESP 18
[2018-09-09 05:56] LABS: Glucose,Whole Blood 131 mg/dL (75-99)
[2018-09-09] MEDS: INSULIN ASPART 100 UNIT/ML 1 ML 10 ML VIAL SQ SCH ×2 (05:56→12:56)
[2018-09-09] MEDS: LORazepam 1 MG TAB PO SCH (06:26)
[2018-09-09] MEDS: APIXABAN 5 MG TAB PO SCH (06:26)
[2018-09-09 06:43] LABS: Anion Gap 9 mmol/L; Blood Urea Nitrogen 46 mg/dL (9-20); Calcium 8.9 mg/dL (8.4-10.2); Carbon Dioxide 23 mmol/L (22-30); Chloride 110 mmol/L (98-107); Glucose 115 mg/dL (74-99); Magnesium 2.2 mg/dL (1.6-2.3); Potassium 4.6 mmol/L (3.5-5.1); Sodium 142 mmol/L (137-145)
[2018-09-09] MEDS: SYMBICORT 160-4.5 MCG INHALER INHALATION SCH (07:08)
[2018-09-09] MEDS: IPRATROPIUM-ALBUTEROL 3 ML NEB INHALATION SCH ×2 (07:08→10:49)
[2018-09-09 07:24] VITALS: PULSE 92
[2018-09-09] MEDS: LINEZOLID 600 MG in DEXTROSE/WATER 1 300ML.BAG IVPB SCH (08:11)
[2018-09-09] MEDS: FOLIC ACID 1 MG TAB PO SCH (08:14)
[2018-09-09] MEDS: METOPROLOL TARTRATE 50 MG TAB PO SCH (08:14)
[2018-09-09] MEDS: ALLOPURINOL 100 MG TAB PO SCH (08:14)
[2018-09-09] MEDS: DILTIAZEM ORAL 60 MG TAB PO SCH (08:14)
[2018-09-09] MEDS: predniSONE 20 MG TAB PO SCH (08:14)
[2018-09-09] MEDS: FAMOTIDINE 20 MG TAB PO SCH (08:14)
[2018-09-09] MEDS: THIAMINE 100 MG TAB PO SCH (08:14)
[2018-09-09] MEDS: MULTIVITAMINS, THERA 1 EACH TAB PO SCH (08:15)
[2018-09-09] MEDS: DOCUSATE 100 MG CAP PO SCH ×2 (08:15→08:16)
[2018-09-09] MEDS: LORazepam 0.5 MG TAB PO PRN (08:15)
--- NOTE | 2018-09-09 08:29 | P.PN ---
Subjective Patient is seen in follow-up for renal transplant management. 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 His baseline creatinine is near 1. Currently being treated for pneumonia. Denies chest pain or shortness of breath. Continues to have a cough but improved. Admits to loose bowel movements. Patient is maintained on tube feeding. Vital signs are stable. General: The patient appeared well nourished and normally developed. HEENT: Head exam is unremarkable. Neck is without jugular venous distension. LUNGS: Lungs are clear to auscultation and percussion. Breath sounds decreased. HEART: Rate and Rhythm are regular. First and second heart sounds normal. No murmurs, rubs or gallops. ABDOMEN: Abdominal exam reveals normal bowel sounds. Non-tender and non- distended. No evidence of peritonitis. EXTREMITITES: No clubbing, cyanosis, or edema. Objective - Vital Signs Vital signs: Vital Signs Temp 97 F L 09/09/18 04:00 Pulse 92 09/09/18 07:24 Resp 18 09/09/18 04:00 BP 137/97 09/09/18 04:00 Pulse Ox 97 09/09/18 04:00 Intake & Output 09/08/18 09/09/18 09/09/18 18:59 06:59 18:59 Intake Total 1700 2401 Output Total 1000 1450 Balance 700 951 Weight 63.5 kg 65.5 kg Intake: Intake, IV Titration 1000 1001 Amount Sodium Chloride 0.9% 1, 1000 000 ml @ 100 mls/hr IV . BY DURATION [facility] Rx#: [id number] Trace (Conc-1Ml/Dose) 1 1001 ml In Sodium Chloride 0.9 % 1,000 ml @ 100 mls/hr IV .BY DURATION [facility] Rx#: [id number] Tube Feeding 700 1400 Output: Urine 200 Stool 1000 1250 Other: Voiding Method Urinal Urinal Diaper Diaper Incontinent Incontinent # Voids 1 1 # Bowel Movements 2 1 - Labs CBC & Chem 7: 09/07/18 05:11 09/09/18 05:38 Labs: Abnormal Lab Results - Last 24 Hours (Table) 09/08/18 09/08/18 09/08/18 Range/Units 11:31 16:20 21:10 Chloride (98-107) mmol/L BUN (9-20) mg/dL Glucose (74-99) mg/dL POC Glucose (mg/dL) 199 H 163 H 229 H (75-99) mg/dL 09/09/18 09/09/18 Range/Units 05:38 05:55 Chloride 110 H (98-107) mmol/L BUN 46 H (9-20) mg/dL Glucose 115 H (74-99) mg/dL POC Glucose (mg/dL) 131 H (75-99) mg/dL Assessment and Plan Plan: Assessment: 1. 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 Baseline creatinine near 1. 2. Pneumonia maintained on antibiotics. Infectious disease following. 3. 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 Maintained on PEG tube feedings. 4. Anemia of chronic kidney disease. Severe iron deficiency noted. Status post IV iron. Plan: Maintain home regimen of immunosuppression which is Prograf and prednisone. Patient is currently not on mycophenolate due to infection. Avoid nephrotoxins. Repeat electrolytes in the morning. Prograf level noted to be low at 1.5. Maintain Prograf 1 mg twice daily and prednisone 10 mg daily. He was on Solu- Medrol and is now on prednisone 20 mg daily. Upon discharge he will need to be continued on 10 mg of prednisone. I will repeat a Prograf level this morning.
[2018-09-09 09:05] VITALS: BP 123/75; TEMP 98
--- NOTE | 2018-09-09 10:31 | P.PN ---
Progress Note - Text Progress Note Date: 09/09/18 Patient was cleared for discharge yesterday to [facility]. However, patient has no days left for rehab on his insurance so discharge was delayed. Patient did have some diarrhea yesterday. Tube feeding has been changed to vital 1.2. recommends to continue bolus feeding at time of discharge. Abdomen xray was unremarkable. Cdiff negative. Social work spoke with family who is agreeable to self pay for [facility] [place]. He remains stable for discharge today.
[2018-09-09] MEDS: SODIUM FERRIC GLUCONAT-SUCROSE 125 MG in SODIUM CHLORIDE 0.9% 100 ML IVPB SCH (10:43)
[2018-09-09] MEDS: TACROLIMUS 1 MG CAP PO SCH (10:44)
[2018-09-09 12:41] LABS: Glucose,Whole Blood 235 mg/dL (75-99)
--- NOTE | 2018-09-09 15:11 | PN ---
PROGRESS NOTE DATE OF SERVICE: 09/09/2018 REASON FOR FOLLOWUP: 1. Pneumonia. 2. Diarrhea. INTERVAL HISTORY: The patient is currently afebrile. He seems to be breathing more comfortably. Denies significant chest pain. Occasional cough. No abdominal pain. Still has some diarrhea. Stool for C difficile was negative. PHYSICAL EXAMINATION: Blood pressure 123/75 with a pulse of 92, temperature 98. He is 95% on 6 L nasal cannula. General description is an elderly male lying in bed in no distress. RESPIRATORY SYSTEM: Unlabored breathing. Clear to auscultation anteriorly. HEART: S1, S2. Regular rate and rhythm. ABDOMEN: Soft. No tenderness. GENITAL AREA: Scrotal area with some swelling, but no excoriation was noted. LABS: BUN of 46, creatinine 0.94. Blood and sputum cultures have been negative. DIAGNOSTIC IMPRESSION AND PLAN: 1. Patient admitted to hospital with extensive pneumonia. Initial concern for possible gram-negative has been ruled out. Sputum has been negative for resistant pathogen. He will finish therapy with oral Avelox 400 daily for about a week. 2. Diarrhea, antibiotic-associated. Hopefully will improve after the Zosyn and Zyvox are discontinued. Advised to increase PEG tube. Continue supportive care. MMODL / IJN: [id number] /
--- NOTE | 2018-09-09 15:32 | PN ---
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 Clinically, the patient continues to improve. He is going to be discharged over to [facility] later today. I told the that I would be happy to see him there as I do go and see patients at this [facility]. He states he is feeling better. We became very aggressive with incentive spirometry q.1 hour as well as flutter valve use every 1 hour and then also just chest physiotherapy four times a day. He continues on the antibiotics and breathing treatments. We thought that if we attempted bronchoscopy, it was likely end him up on the mechanical ventilator. The patient is coughing up much less phlegm. Not coughing up any blood at this time. There is no fever or chills. We did tell the patient that he should have the head of his bed elevated at all times, he should be at 30%-45%, as he is a high risk for aspiration. I did give the my card so that I could be consulted when he ends at [facility]. Current vital signs are reviewed. His temperature is 98, heart rate 92, respiratory rate 18, blood pressure 123/75, mean 91, 6 L saturation 95%. Appears in no acute distress. HEENT examination is grossly unremarkable. Mucous membranes are moist. Neck is supple. Full range of motion. No adenopathy or thyromegaly. Neck veins are flat. Cardiovascular examination reveals distant heart sounds. S1, S2 normal. No S3, S4, or murmur. Lungs reveal coarse inspiratory and expiratory rhonchi and wheezes. Breath sounds are diminished. There is prolongation on forced maneuver. Breath sounds are equal bilaterally. They are diminished throughout. Abdomen is soft. Bowel sounds are heard. Extremities are intact. No cyanosis, clubbing, or edema. Skin without rash. Neurologic examination is brief but nonfocal. LAB DATA: From today is reviewed. He has a sodium of 142, potassium 4.6, chloride 110, CO2 of 23, anion gap 9, BUN and creatinine were 46 and 0.94. This suggests prerenal azotemia. Because of his ongoing diarrhea, a C diff was done. It was negative. Chest x-ray from 09/07 shows bilateral consolidation and diffuse airspace disease. Microbiologic studies were negative. Medications are reviewed. ASSESSMENT: 1. Chronic acute aspiration pneumonia, multilobar with negative microbiologic studies. 2. Chronic atrial fibrillation, controlled. 3. Diastolic congestive heart failure. 4. Lung cancer, status post lobectomy and radiation therapy. 5. General medical debility. 6. Status post kidney transplant. 7. Hemoptysis, resolved. PLAN: The patient looks clinically better today. He is apparently being discharged by the primary service to [facility]. I did talk to the family about having me see him when he is at [facility]. I gave them my card. All they have to do is ask his hospital doctor to consult me. The chest x-ray from a couple days ago was reviewed with the family. Medications reviewed. Allergies reviewed. Problem list is reviewed. The patient has a overall very guarded prognosis. He appears to be relatively weak. He has general medical debility. We are concerned about chronic aspiration. Head of bed should be elevated at all times between 30% and 45%. Will continue to follow. Prognosis is very guarded. MMODL / IJN: [id number] /
== END 2018-09-09 15:03 | DRG 178 ==
LOC: EC 20:11 → 3SCARD 23:06 → 3NMEDONC 09-05 22:56
PROVIDERS: ADMIT Family Medicine; ATTEND Family Medicine
DX: J69.0 Pneumonitis due to inhalation of food and vomit (principal); E44.0 Moderate protein-calorie malnutrition; Z94.0 Kidney transplant status; I50.32 Chronic diastolic (congestive) heart failure; R04.2 Hemoptysis; R47.01 Aphasia; I48.2 Chronic atrial fibrillation; I11.0 Hypertensive heart disease with heart failure; R13.10 Dysphagia, unspecified; D50.9 Iron deficiency anemia, unspecified; M54.5 Low back pain; D63.1 Anemia in chronic kidney disease; E03.9 Hypothyroidism, unspecified; F32.9 Major depressive disorder, single episode, unspecified; R73.9 Hyperglycemia, unspecified; F41.9 Anxiety disorder, unspecified; L40.9 Psoriasis, unspecified; M19.90 Unspecified osteoarthritis, unspecified site; H91.90 Unspecified hearing loss, unspecified ear; Z68.20 Body mass index [BMI] 20.0-20.9, adult; Z79.01 Long term (current) use of anticoagulants; Z79.52 Long term (current) use of systemic steroids; Z79.899 Other long term (current) drug therapy; Z93.1 Gastrostomy status; Z97.4 Presence of external hearing-aid; Z90.49 Acquired absence of other specified parts of digestive tract; Z92.21 Personal history of antineoplastic chemotherapy; Z92.3 Personal history of irradiation; Z96.643 Presence of artificial hip joint, bilateral; Z87.891 Personal history of nicotine dependence; Z85.810 Personal history of malignant neoplasm of tongue; Z87.01 Personal history of pneumonia (recurrent); Z90.2 Acquired absence of lung [part of]; Z85.118 Personal history of other malignant neoplasm of bronchus and lung; Z74.01 Bed confinement status; Z82.49 Family history of ischemic heart disease and other diseases of the circulatory system; Z84.1 Family history of disorders of kidney and ureter; R54 Age-related physical debility
CPT/HCPCS: 36415; 71045; 71046; 74018; 80048; 80053; 80197; 80202; 81003; 82607; 82728; 82746; 83036; 83540; 83550; 83605; 83690; 83735; 84134; 85025; 85610; 85730; 87040; 87070; 87086; 87205; 87324; 87502; 93005; 94640; 94667; 94668; 94760; 96361; 96365; 96366; 96367; 96375; 99285

== ENCOUNTER 2018-10-15 13:27 | Emergency (ER) | payer OTHER, MEDICARE ==
[~2018-10-15 13:27] MED LIST: EPINEPHrine 10 ML SYRINGE (0.1 MG/ML) ONE
[2018-10-15 13:56] VITALS: TEMP 96.9
[2018-10-15] MEDS ORDERED: IPRATROPIUM-ALBUTEROL 3 ML NEB INHALATION PRN (13:58)
[2018-10-15] MEDS ORDERED: LORazepam 2 MG/ML INJ IV PRN ×2 (13:58)
[2018-10-15] MEDS ORDERED: PROPOFOL 1,000 MG in EMPTY BAG 1 BAG IV SCH (14:00)
--- NOTE | 2018-10-15 14:05 | ED ---
General Adult HPI - General Chief complaint: Cardiac Arrest/CPR Stated complaint: Cardiac arrest Time Seen by Provider: 10/15/18 13:27 Source: EMS, RN notes reviewed Mode of arrival: EMS Limitations: altered mental status, physical limitation - History of Present Illness Initial comments: Patient is an unresponsive 68-year-old male presenting to the emergency department in cardiac arrest. Patient has reported history of esophageal/ tongue cancer. Patient does have a PEG tube in place. Patient reportedly was eating chicken when he choked. EMS did do CPR for 30-40 minutes prior to arrival. Patient did receive 4 of epinephrine. Patient has left IO line. Patient is unresponsive and unable to provide any history. - Related Data Home Medications Medication Instructions Recorded Confirmed Tacrolimus [Prograf] 2 mg PEG/G-TUBE BID 11/15/14 10/15/18 Cyanocobalamin (Vitamin B-12) 1,000 mcg PEG/G-TUBE DAILY 01/27/18 10/15/18 [Vitamin B-12] Multivitamins, Thera [Multivitamin 1 tab PEG/G-TUBE DAILY 01/27/18 10/15/18 (formulary)] Mycophenolate Sodium [Mycophenolic 360 mg PEG/G-TUBE BID 01/27/18 10/15/18 Acid] Allopurinol [Zyloprim] 100 mg PEG/G-TUBE DAILY 04/14/18 10/15/18 Famotidine [Pepcid] 20 mg PEG/G-TUBE DAILY 09/01/18 10/15/18 Folic Acid 1 mg PEG/G-TUBE DAILY 09/01/18 10/15/18 Ipratropium-Albuterol Nebulize 3 ml INHALATION RT-QID 09/01/18 10/15/18 [Duoneb 0.5 mg-3 mg/3 ml Soln] Thiamine [Vitamin B-1] 100 mg PEG/G-TUBE DAILY 09/01/18 10/15/18 Apixaban [Eliquis] 5 mg PEG/G-TUBE BID@0600,1800 10/15/18 10/15/18 Diltiazem Oral [Cardizem*] 120 mg PEG/G-TUBE TID 10/15/18 10/15/18 Fluticasone/Vilanterol [Breo 1 puff INHALATION RT-DAILY 10/15/18 10/15/18 Ellipta 100-25 Mcg Inhaler] LORazepam [Ativan] 1 mg PEG/G-TUBE Q8H 10/15/18 10/15/18 Lactose-Reduced Food/Fiber [Jevity 300 ml PEG/G-TUBE 5XD 10/15/18 10/15/18 1.2 Maximino Liquid] Metoprolol Tartrate [Lopressor] 50 mg PEG/G-TUBE TID 10/15/18 10/15/18 QUEtiapine [SEROquel] 25 mg PEG/G-TUBE HS 10/15/18 10/15/18 predniSONE 10 mg PEG/G-TUBE DAILY 10/15/18 10/15/18 Previous Rx's Medication Instructions Recorded Acetaminophen Tab [Tylenol] 650 mg PEG/G-TUBE Q4HR PRN tab 09/08/18 Allergies Allergy/AdvReac Type Severity Reaction Status Date / Time No Known Allergies Allergy Verified 10/15/18 14:10 Review of Systems ROS Statement: Those systems with pertinent positive or pertinent negative responses have been documented in the HPI. ROS Other: All systems not noted in ROS Statement are negative. Limitations: ROS unobtainable due to patients medical condition Past Medical History Past Medical History: Atrial Fibrillation, Heart Failure, Hearing Disorder / Deafness, Hypertension, Renal Disease, Skin Disorder Additional Past Medical History / Comment(s): HX OF RENAL FAILURE, ON PERITONEAL DIALYSIS [id number]; HAD RENAL TRANSPLANT 2004; WEARS HEARING AIDE BILATERALLY; HX OF RENAL DISEASE PRIOR TO TRANSPLANT; MILD PSORIASIS ARMS, LEGS AND BACK. SICNE CHEMO THE PSORIAIS HAS CLEARED History of Any Multi-Drug Resistant Organisms: None Reported Past Surgical History: Appendectomy, Joint Replacement, Tonsillectomy Additional Past Surgical History / Comment(s): CHEMO AND RADIATION FOR TONGUE. PEG TUBE PLACED 1 YR AGO. HAD LEFT THORACOTOMY WITH UPPER LOBECTOMY 2013. BILATERAL HIP REPLACEMENT Past Anesthesia/Blood Transfusion Reactions: No Reported Reaction Past Psychological History: Anxiety, Depression Smoking Status: Former smoker Past Alcohol Use History: Occasional Past Drug Use History: None Reported - Past Family History Father Family Medical History: Coronary Artery Disease (CAD), Renal Disease Additional Family Medical History / Comment(s): Father at the age of 80yrs. Mother Family Medical History: Coronary Artery Disease (CAD) Additional Family Medical History / Comment(s): Mother at the age of 70yrs. General Exam Limitations: altered mental status, physical limitation General appearance: obtunded Head exam: Present: atraumatic Eye exam: Present: other (Right eye opacified. Left pupil fixed and dilated) ENT exam: Present: other (Secretions in the oropharynx limited evaluation) Neck exam: Present: other (JVD) Respiratory exam: Present: rales, other (No spontaneous breath sounds. Equal breath sounds with bagging insufflation.) Cardiovascular Exam: Present: other (Originally no heart sounds or pulse. Following CPR patient did have A. fib.) GI/Abdominal exam: Present: distended (Lower abdomen) Extremities exam: Present: normal inspection Neurological exam: Present: other (Unresponsive) Psychiatric exam: Present: other (Unresponsive) Skin exam: Present: normal color Course Vital Signs 10/15/18 10/15/18 10/15/18 13:52 14:15 14:25 Temperature 96.9 F L Pulse Rate 89 81 55 L Respiratory 18 12 Rate Blood Pressure 134/89 163/97 55/37 O2 Sat by Pulse 98 97 97 Oximetry 10/15/18 10/15/18 14:37 14:46 Temperature Pulse Rate 46 L 41 L Respiratory 12 10 L Rate Blood Pressure 46/32 43/29 O2 Sat by Pulse 96 96 Oximetry - Reevaluation(s) Reevaluation #1: 10/15/18 14:03 Following intubation and removal of obstruction and approximately 5-7 minutes of CPR patient did have return of circulation. 10/15/18 14:42 Family is present. Long discussion had with family. Family has decided they do not want to have further CPR done. They do not want ET tube removed however at this point. They just want comfort care. They do not want central line or pressors. Patient does have a very poor prognosis case and prolonged CPR and still no signs of brain activity. Patient is having decreased blood pressure at 51 systolic. 10/15/18 15:24 Called again to see patient. Patient had no heartbeat. No heart sounds. No pulse. Asystole on the monitor. No blood pressure. No spontaneous breath sounds. Left pupil fixed and dilated. No response to pain. Time of is 1503. Family is updated. 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 10/15/18 15:26 Further family is present and aware. Dr. Loja has been paged. 10/15/18 16:11 Case was discussed with Dr. Polk, who did earlier see the patient and was doing fine at that point. He will sign the certificate. Case was also discussed with medical lab technician Aura and patient will go to the [facility] [place]. EKG Findings - EKG Comments: EKG Findings:: A. fib with rate of 109. QRS 110. QT 420. QTc 565. Normal axis. Lateral ST depression. Normal QRS. Procedures - EJ/Peripheral Line No standard instances Consent Obtained: emergent situation Time Out Performed: Yes Indications: multiple IV sites needed Skin Cleansed in Sterile Fashion: Yes Size: 18 Patient Tolerated Procedure: well, no complications Additional Comments: Left EJ - Intubation Time Out Performed: Yes Laryngoscope: Pacheco Size: 3 ET Tube Size: 8 Tube Placement Confirmation: visualized tube passing through cords, equal breath sounds bilaterally, no breath sounds over epigastrium Patient Tolerated Procedure: well Additional Comments: Airway obscured by secretions as well as large chunk of presumed chicken that was removed with suction. Following this patient was easily intubated. Medical Decision Making - Lab Data Result diagrams: 10/15/18 13:32 10/15/18 13:32 Lab Results 10/15/18 10/15/18 10/15/18 Range/Units 13:32 13:32 13:32 WBC 10.0 (3.8-10.6) k/uL RBC 4.24 L (4.30-5.90) m/uL Hgb 10.8 L (13.0-17.5) gm/dL Hct 39.2 (39.0-53.0) % MCV 92.4 D (80.0-100.0) fL MCH 25.5 (25.0-35.0) pg MCHC 27.6 L (31.0-37.0) g/dL RDW 19.0 H (11.5-15.5) % Plt Count 207 (150-450) k/uL Neutrophils % 56 % Lymphocytes % 33 % Monocytes % 7 % Eosinophils % 1 % Basophils % 0 % Neutrophils # 5.6 (1.3-7.7) k/uL Lymphocytes # 3.3 (1.0-4.8) k/uL Monocytes # 0.7 (0-1.0) k/uL Eosinophils # 0.1 (0-0.7) k/uL Basophils # 0.0 (0-0.2) k/uL Hypochromasia Marked Anisocytosis Slight PT (9.0-12.0) sec INR (<1.2) APTT (22.0-30.0) sec Sodium 139 (137-145) mmol/L Potassium 5.3 H (3.5-5.1) mmol/L Chloride 104 (98-107) mmol/L Carbon Dioxide 16 L (22-30) mmol/L Anion Gap 19 mmol/L BUN 29 H (9-20) mg/dL Creatinine 1.10 (0.66-1.25) mg/dL Est GFR (CKD-EPI)AfAm 81 (>60 ml/min/1.73 sqM) Est GFR (CKD-EPI)NonAf 70 (>60 ml/min/1.73 sqM) Glucose 336 H (74-99) mg/dL Calcium 9.1 (8.4-10.2) mg/dL Magnesium 2.0 (1.6-2.3) mg/dL Total Bilirubin 0.4 (0.2-1.3) mg/dL AST 121 H (17-59) U/L ALT 98 H (21-72) U/L Alkaline Phosphatase 84 (38-126) U/L Total Creatine Kinase 36 L (55-170) U/L CK-MB (CK-2) 1.0 (0.0-2.4) ng/mL CK-MB (CK-2) Rel Index 2.8 Troponin I 0.033 (0.000-0.034) ng/mL Total Protein 5.0 L (6.3-8.2) g/dL Albumin 3.0 L (3.5-5.0) g/dL 10/15/18 Range/Units 13:32 WBC (3.8-10.6) k/uL RBC (4.30-5.90) m/uL Hgb (13.0-17.5) gm/dL Hct (39.0-53.0) % MCV (80.0-100.0) fL MCH (25.0-35.0) pg MCHC (31.0-37.0) g/dL RDW (11.5-15.5) % Plt Count (150-450) k/uL Neutrophils % % Lymphocytes % % Monocytes % % Eosinophils % % Basophils % % Neutrophils # (1.3-7.7) k/uL Lymphocytes # (1.0-4.8) k/uL Monocytes # (0-1.0) k/uL Eosinophils # (0-0.7) k/uL Basophils # (0-0.2) k/uL Hypochromasia Anisocytosis PT 10.9 (9.0-12.0) sec INR 1.0 (<1.2) APTT 30.6 H (22.0-30.0) sec Sodium (137-145) mmol/L Potassium (3.5-5.1) mmol/L Chloride (98-107) mmol/L Carbon Dioxide (22-30) mmol/L Anion Gap mmol/L BUN (9-20) mg/dL Creatinine (0.66-1.25) mg/dL Est GFR (CKD-EPI)AfAm (>60 ml/min/1.73 sqM) Est GFR (CKD-EPI)NonAf (>60 ml/min/1.73 sqM) Glucose (74-99) mg/dL Calcium (8.4-10.2) mg/dL Magnesium (1.6-2.3) mg/dL Total Bilirubin (0.2-1.3) mg/dL AST (17-59) U/L ALT (21-72) U/L Alkaline Phosphatase (38-126) U/L Total Creatine Kinase (55-170) U/L CK-MB (CK-2) (0.0-2.4) ng/mL CK-MB (CK-2) Rel Index Troponin I (0.000-0.034) ng/mL Total Protein (6.3-8.2) g/dL Albumin (3.5-5.0) g/dL Critical Care Time Critical Care Time: Yes Total Critical Care Time: 47 Disposition Clinical Impression: Cardiopulmonary arrest, Choking Disposition: Is patient prescribed a controlled substance at d/c from ED?: No Referrals: Pancho Casper Jr, [Primary Care Provider] - 1-2 days Preliminary Cause of : Cardiopulmonary arrest from choking
[2018-10-15 14:19] LABS: Anisocytosis Slight; Basophils % (A) 0 %; Eosinophils # (A) 0.1 k/uL (0-0.7); Eosinophils % (A) 1 %; HCT 39.2 % (39.0-53.0); HGB 10.8 gm/dL (13.0-17.5); Hypochromasia Marked; Lymphocytes # (A) 3.3 k/uL (1.0-4.8); Lymphocytes % (A) 33 %; MCH 25.5 pg (25.0-35.0); MCHC 27.6 g/dL (31.0-37.0); Mean Platelet Volume 8.2; Monocytes # (A) 0.7 k/uL (0-1.0); Monocytes % (A) 7 %; Neutrophils # (A) 5.6 k/uL (1.3-7.7); Neutrophils % (A) 56 %; Platelet Count 207 k/uL (150-450); RBC 4.24 m/uL (4.30-5.90)
[2018-10-15] MEDS ORDERED: SODIUM CHLORIDE 0.9% 1,000 ML IV STA ×2 (14:21)
[2018-10-15 14:24] LABS: MCV 92.4 fL (80.0-100.0)
[2018-10-15 14:29] LABS: Calcium 9.1 mg/dL (8.4-10.2); Partial Thromboplastin Time 30.6 sec (22.0-30.0); Potassium 5.3 mmol/L (3.5-5.1); Prothrombin Time 10.9 sec (9.0-12.0); Total Bilirubin 0.4 mg/dL (0.2-1.3)
[2018-10-15 14:48] VITALS: BP 43/29; PULSE 41; RESP 10
[2018-10-15 14:56] LABS: Troponin I 0.033 ng/mL (0.000-0.034)
--- NOTE | 2018-10-15 15:02 | XR ---
EXAMINATION TYPE: XR chest 1V portable DATE OF EXAM: 10/15/2018 Comparison: 09/07/2018 Clinical History: 68-year-old male dysrhythmia Findings: ET tube remains in place. Continued cardiomegaly with multifocal airspace opacities, right greater than left. No sizable effusi on seen on the supine view. Impression: Multifocal airspace disease, right greater than left largely unchanged.
[2018-10-15] MEDS ORDERED: CHLORHEXIDINE GLUCONATE 15 ML CUP MUCOUS MEM SCH (21:00)
== END 2018-10-15 15:03 | disposition expired ==
LOC: EC 13:27
DX: I46.9 Cardiac arrest, cause unspecified (principal); R09.89 Other specified symptoms and signs involving the circulatory and respiratory systems; I48.91 Unspecified atrial fibrillation; I13.2 Hypertensive heart and chronic kidney disease with heart failure and with stage 5 chronic kidney disease, or end stage renal disease; N18.6 End stage renal disease; I50.9 Heart failure, unspecified; F41.9 Anxiety disorder, unspecified; F32.9 Major depressive disorder, single episode, unspecified; Z99.2 Dependence on renal dialysis; Z94.0 Kidney transplant status; Z85.01 Personal history of malignant neoplasm of esophagus; Z85.810 Personal history of malignant neoplasm of tongue; Z92.21 Personal history of antineoplastic chemotherapy; Z96.643 Presence of artificial hip joint, bilateral; Z82.49 Family history of ischemic heart disease and other diseases of the circulatory system; Z87.891 Personal history of nicotine dependence; Z79.01 Long term (current) use of anticoagulants; Z79.51 Long term (current) use of inhaled steroids; Z79.52 Long term (current) use of systemic steroids; Z79.899 Other long term (current) drug therapy
CPT/HCPCS: 36415; 94002; 93005; 80053; 82550; 82553; 83735; 84484; 85025; 85610; 85730; 71045; 99291; 31500; 36569; 92950; 96360 ×2; J0171